=== PATIENT | female | born 1945 | race Caucasian/White ===

== ENCOUNTER 2016-08-18 13:23 | Emergency (ER) | payer OTHER ==
[~2016-08-18] VITALS: Ht 170.2 cm; Wt 72.0 kg
[~2016-08-18 13:23] MED LIST: ALBU8I INH; ALLO100T PO; DUONI NEB; LISI20 PO; PANT20 PO; REQU5TAB PO; ZITH250T PO
[2016-08-18 13:27] VITALS: BP 147/67; PULSE 102; RESP 15; TEMP 98; O2SAT 99
[2016-08-18] MEDS ORDERED: ZOLP10TA3 PO (14:40)
[2016-08-18] MEDS ORDERED: PERM5CRE11 TOPICAL (15:21)
--- NOTE | 2016-08-18 15:21 | PD ---
HPI Chief Complaint: Skin Problem Time Seen by Provider: 15:20 Travel History International Travel<30 days: No Contact w/Intl Traveler<30days: No Traveled to known affect area: No History of Present Illness HPI 70-year-old female presents to the emergency Department with complaint of a rash between her breasts and to her right bicep area times one month. 2 weeks ago she saw her primary care provider and was given betamethasone topical with no improvement in symptoms. Rash is extremely itchy. Denies fever, chills, nausea, vomiting. Has tried other topical ointments such as calamine lotion, with no relief of itching or symptoms. No one else with the rash. Denies new lotions, soaps, detergents, medications, food, environmental exposures. History of scabies approximately 6 months ago. Allergies to morphine and penicillin. No other modifying factors or associated signs and symptoms. PFSH Past Medical History Arthritis: Yes (RIGHT WRIST) Asthma: Yes Blood Disorders: No Anxiety: No Depression: No Heart Rhythm Problems: No Cancer: No Cardiac Catheterization: No Cardiovascular Problems: Yes High Cholesterol: No Chemotherapy: No Chest Pain: No Congestive Heart Failure: No COPD: Yes Coronary Artery Disease: No Diabetes: No Diminished Hearing: No Endocrine: No GERD: Yes Gout: Yes Genitourinary: No Hypertension: Yes Immune Disorder: No Musculoskeletal: No Neurologic: No Psychiatric: No Reproductive: No Respiratory: Yes (COPD) Immunizations Current: No Myocardial Infarction: No Radiation Therapy: No Sleep Apnea: No Thyroid Disease: No Tetanus Vaccination: < 5 Years Influenza Vaccination: No ?: Not Menopausal: Yes : 3 Para: 2 Miscarriage: 1 Past Surgical History Coronary Artery Bypass Graft: No Thoracic Surgery: No Other Surgery: Yes (foot surgery) Social History Alcohol Use: No Tobacco Use: No (quit in 2008) Substance Use: No Allergies-Medications (Allergen,Severity, Reaction): Coded Allergies: Morphine (Verified Allergy, Severe, N&V, 08/18/16) Penicillin (Verified Allergy, Mild, HIVES, 08/18/16) "black hairy tongue" Reported Meds & Prescriptions Reported Meds & Active Scripts Active Elimite Topical (Permethrin) 5% Cream 1 Applic TOPICAL ONCE Ventolin Hfa (Albuterol Sulfate) 8 Gm Aero 2 Puff INH Q4 PRN * SHAKE WELL BEFORE USE * Reported Zolpidem (Zolpidem Tartrate) 10 Mg Tab 10 Mg PO HS PRN Protonix (Pantoprazole Sodium) 20 Mg Tabdr 20 Mg PO HS Resp: Albuterol/Ipratropium 2.5 Mg/0.5 Mg (Albuterol/Ipratropium) 1 Amp Nebu 1 Ampule NEB Q4HR PRN Ventolin Hfa (Albuterol Sulfate) 8 Gm Aero 2 Puff INH Q6 PRN * SHAKE WELL BEFORE USE * Requip 5 mg (ROPINIROLE HYDROCHLORIDE 5 mg) 5 Mg Tab 5 Mg PO HS Allopurinol 100 Mg Tab 100 Mg PO BID Prinivil 20 mg (Lisinopril) 20 Mg Tab 20 Mg PO DAILY Review of Systems Except as stated in HPI: all other systems reviewed are Neg Physical Exam Narrative GENERAL: Well-nourished, well-developed female patient, in no acute distress; afebrile, nontoxic-appearing SKIN: Warm and dry. Generalized erythremic pimple-like rash in between breasts and to the right bicep area; areas appear excoriated. No areas with cellulitic process noted. HEAD: Atraumatic. Normocephalic. EYES: Pupils equal and round. No scleral icterus. No injection or drainage. ENT: Mucosa pink and moist. Airway patent. NECK: Trachea midline. CARDIOVASCULAR: Regular rate. RESPIRATORY: No accessory muscle use. GASTROINTESTINAL: Flat. MUSCULOSKELETAL: No obvious deformities. No clubbing. No cyanosis. No edema. NEUROLOGICAL: Awake and alert. Oriented 3. No obvious cranial nerve deficits. Motor grossly within normal limits. Normal speech. PSYCHIATRIC: Appropriate mood and affect; insight and judgment normal. Data Data Last Documented VS Vital Signs Date Time Temp Pulse Resp B/P Pulse Ox O2 Delivery O2 Flow Rate FiO2 08/18/16 13:27 98.0 102 15 147/67 99 MDM Medical Decision Making Medical Screen Exam Complete: Yes Emergency Medical Condition: Yes Medical Record Reviewed: Yes Differential Diagnosis Nonspecific skin eruption, scabies, contact dermatitis Narrative Course 70-year-old female physical exam consistent with a possible scabies rash. Patient is afebrile and nontoxic-appearing. Denies fever, chills, nausea, vomiting at home. Her rate on physical exam is approximately 90 bpm. Patient was previously treated with betamethasone topical ointment by her primary care provider with no improvement in symptoms. I will prescribe Elimite cream for possible scabies rash. Instructed patient to follow up with dermatology. Elimite prescribed for home. Patient verbalized understanding and agreement with treatment plan. Patient is medically cleared and stable for discharge. Discussed reasons to return to the emergency department. Instructed patient to follow up with primary care provider. Patient agrees with treatment plan. The patients vital signs are stable and the patient is stable for outpatient follow- up and treatment. Patient discharged home, stable and in no acute distress. Diagnosis Primary Impression: Scabies Referrals: [facility] Primary Care Physician Patient Instructions: General Instructions, Scabies (ED) Additional Instructions: Elimite cream as directed; repeat in one week as needed Soaking in cool water or apply cool, wet washcloths to irritated areas to minimize itching Apply anti-itch creams, such as calamine lotion, to relieve pain and itching as needed [id number] antihistamines as needed and as directed to relieve allergic symptoms caused by scabies Wash all pillows, linens, blankets, etc. in hot water and dry in hot dryer Bag all unwashable linens, Morrison stuffed animals, etc. in a tightly sealed garbage bag for up to 2 weeks Follow-up with [facility]eneer sawyer Follow-up with primary care provider Return to the emergency department immediately with worsening of symptoms Med/Other Pt SpecificInfo: Prescription(s) given Scripts Permethrin Topical (Elimite Topical)5% Cream1 Applic TOPICAL ONCE #1 TUBE Ref 1 Prov:Amber Martel 08/18/16 Disposition: 01 DISCHARGE HOME Condition: Stable Amber Martel Aug 18, 2016 15:21
== END 2016-08-18 15:37 | disposition home or self-care (01) ==
LOC: NEPB 13:23
DX: B86 Scabies (principal); I10 Essential (primary) hypertension; J44.9 Chronic obstructive pulmonary disease, unspecified; M10.9 Gout, unspecified
CPT/HCPCS: 99282

== ENCOUNTER 2016-10-30 22:45 | Emergency (ER) | payer OTHER ==
[~2016-10-30] VITALS: Ht 170.2 cm; Wt 74.0 kg
[~2016-10-30 22:45] MED LIST changes: +PERM5CRE11 TOPICAL; -ZITH250T PO; +ZOLP10TA3 PO
[2016-10-30 22:49] VITALS: BP 141/72; PULSE 79; RESP 24; TEMP 97.9; O2SAT 97
[2016-10-30] MEDS ORDERED: EPINEPHrine HCL (1:1000) 1 MG/ML VIAL IM ONE (23:00)
[2016-10-30] MEDS ORDERED: RESP: ALBUTEROL 2.5 MG/IPRATROPIUM 0.5 MG NEB (SCH) INH ONE (23:00)
[2016-10-30 23:05] VITALS: O2SAT 97
[2016-10-30] MEDS ORDERED: FAMOTIDINE INJ 20 MG in SODIUM CHLORIDE 0.9% INJ 98 ML IV SCH (23:15)
[2016-10-30] MEDS ORDERED: methylPREDNISolone SOD SUCC 125 MG/2 ML VIAL IV PUSH ONE (23:15)
[2016-10-30] MEDS ORDERED: SODIUM CHLORID 0.9% 500 ML INJ 500 ML IV ONE (23:15)
[2016-10-30 23:18] LABS: AUTOMATED NEUTROPHIL # 8.2 TH/MM3 (1.8-7.7); BASOPHIL # 0.1 TH/MM3 (0-0.2); BASOPHIL % 0.5 % (0.0-2.0); EOSINOPHIL # 0.6 TH/MM3 (0-0.4); EOSINOPHIL % 4.9 % (0.0-4.0); HEMATOCRIT 35.6 % (35.0-46.0); LYMPH % 16.1 % (9.0-44.0); LYMPHOCYTE # 1.9 TH/MM3 (1.0-4.8); MEAN CELL VOLUME 88.9 FL (80.0-100.0); MEAN CORPUSCULAR HEMOGLOBIN 30.4 PG (27.0-34.0); MEAN CORPUSCULAR HGB CONC 34.2 % (32.0-36.0); MONO % 9.2 % (0.0-8.0); NEUT % 69.3 % (16.0-70.0); PLATELET COUNT 249 TH/MM3 (150-450); RED CELL DISTRIBUTION WIDTH 13.5 % (11.6-17.2); WHITE BLOOD COUNT 11.8 TH/MM3 (4.0-11.0)
[2016-10-30 23:24] LABS: HEMO FLAGS AUTO DIFF
[2016-10-30] MEDS ORDERED: diphenhydrAMINE HCL 50 MG/ML VIAL IV PUSH ONE (23:30)
[2016-10-30 23:38] LABS: CREATINE KINASE 110 U/L (26-192)
[2016-10-30 23:41] VITALS: O2SAT 100
[2016-10-30 23:42] LABS: ANION GAP 8 MEQ/L (5-15); BICARBONATE 24.2 MEQ/L (21.0-32.0); CHLORIDE 108 MEQ/L (98-107); GLOMERULAR FILTRATION RATE 59 ML/MIN (>89); POTASSIUM 4.2 MEQ/L (3.5-5.1); SODIUM (NA) 140 MEQ/L (136-145)
[2016-10-30 23:50] LABS: CKMB 3.2 NG/ML (0.5-3.6)
[2016-10-30 23:51] LABS: BLOOD UREA NITROGEN 16 MG/DL (7-18)
--- NOTE | 2016-10-30 23:56 | PD ---
HPI Chief Complaint: Allergic/Adverse Reaction Time Seen by Provider: 22:50 Travel History International Travel<30 days: No Contact w/Intl Traveler<30days: No Traveled to known affect area: No History of Present Illness HPI The patient is a 71 year old female who presents to the [facility] emergency department with a history of developing a sensation of extremely dry mouth and throat that began approximate 45 minutes prior to arrival. The patient reports that she tried drinking water and wetting her mouth as well as doing an albuterol nebulizer treatment, however nothing would help except sucking on a cough drop. She became concerned that she was experiencing an allergic reaction as she was having difficulty swallowing, therefore she came to the emergency department for evaluation and treatment. The patient reports that she ate a shrimp cocktail at 8:30 PM. She reports that she's had shellfish many times in the past without any reaction. The patient additionally reports that she is in a trial and over the last week has been using a new inhaler. She last administered the new inhaler at 8:15 PM. The patient denies having any rash or itching. She denies having any chest pain. She denies having any abdominal pain, nausea, vomiting, or diarrhea. Review of systems, the patient denies any recent fevers, worsening cough (she has a chronic cough related to COPD), worsening congestion, neck pain, urinary symptoms, or neurologic symptoms. [facility] Past Medical History Narrative Medical The patient's past medical history is significant for COPD, arthritis, gout, hypertension, and acid reflux. The patient reports that she quit smoking 4 years ago. Arthritis: Yes (RIGHT WRIST) Asthma: Yes Blood Disorders: No Anxiety: No Depression: No Heart Rhythm Problems: No Cancer: No Cardiac Catheterization: No Cardiovascular Problems: Yes High Cholesterol: No Chemotherapy: No Chest Pain: No Congestive Heart Failure: No COPD: Yes Coronary Artery Disease: No Diabetes: No Diminished Hearing: No Endocrine: No GERD: Yes Gout: Yes Genitourinary: No Hypertension: Yes Immune Disorder: No Musculoskeletal: No Neurologic: No Psychiatric: No Reproductive: No Respiratory: Yes (COPD) Immunizations Current: No Myocardial Infarction: No Radiation Therapy: No Sleep Apnea: No Thyroid Disease: No ?: Not Menopausal: Yes : 3 Para: 2 Miscarriage: 1 Past Surgical History Narrative Surgical The patient's past surgical history is significant for a foot surgery. Coronary Artery Bypass Graft: No Thoracic Surgery: No Other Surgery: Yes (foot surgery) Social History Alcohol Use: No Tobacco Use: No (quit in 2008) Substance Use: No Allergies-Medications (Allergen,Severity, Reaction): Coded Allergies: Morphine (Verified Allergy, Severe, N&V, 08/18/16) Penicillin (Verified Allergy, Mild, HIVES, 08/18/16) "black hairy tongue" Reported Meds & Prescriptions Reported Meds & Active Scripts Active Elimite Topical (Permethrin) 5% Cream 1 Applic TOPICAL ONCE Ventolin Hfa (Albuterol Sulfate) 8 Gm Aero 2 Puff INH Q4 PRN * SHAKE WELL BEFORE USE * Reported Zolpidem (Zolpidem Tartrate) 10 Mg Tab 10 Mg PO HS PRN Protonix (Pantoprazole Sodium) 20 Mg Tabdr 20 Mg PO HS Resp: Albuterol/Ipratropium 2.5 Mg/0.5 Mg (Albuterol/Ipratropium) 1 Amp Nebu 1 Ampule NEB Q4HR PRN Ventolin Hfa (Albuterol Sulfate) 8 Gm Aero 2 Puff INH Q6 PRN * SHAKE WELL BEFORE USE * Requip 5 mg (ROPINIROLE HYDROCHLORIDE 5 mg) 5 Mg Tab 5 Mg PO HS Allopurinol 100 Mg Tab 100 Mg PO BID Prinivil 20 mg (Lisinopril) 20 Mg Tab 20 Mg PO DAILY Review of Systems Except as stated in HPI: all other systems reviewed are Neg General / Constitutional: No: Fever Eyes: No: Visual changes HENT: Positive: Sore Throat, Other (dry mouth, dry throat, difficulty swallowing), No: Headaches Cardiovascular: Positive: Dyspnea on exertion, No: Chest Pain or Discomfort Respiratory: Positive: Cough (chronic cough), Shortness of Breath Gastrointestinal: No: Abdominal Pain Genitourinary: No: Dysuria Musculoskeletal: No: Pain Skin: No Rash Neurologic: No: Weakness Psychiatric: No: Depression Endocrine: No: Polydipsia Hematologic/Lymphatic: No: Easy Bruising Physical Exam Narrative General: The patient is a well-developed well-nourished female, anxious appearing on arrival. Otherwise in no acute distress. Head and Neck exam: Head is normocephalic atraumatic. Eyes: EOMI, pupils are equal round and reactive to light. Nose: Midline septum with pink mucous membranes Mouth: Dentition unremarkable. Moist mucus membranes. Posterior oropharynx is mildly erythematous and dry appearing with slight swelling of the uvula. No tonsillar hypertrophy. Uvula midline. Airway patent. Neck: No palpable lymphadenopathy. No nuchal rigidity. No thyromegaly. Cardiovascular: Regular rate and rhythm without murmurs, gallops, or rubs. Lungs: Soft expiratory wheezes are audible. No rhonchi, no crackles. No accessory muscle use. No tripoding. No paroxysmal abdominal breathing. Abdomen: Soft, without tenderness to palpation in all 4 quadrants of the abdomen. No guarding, rebound, or rigidity. Normal bowel sounds are audible. No tenderness on palpation of McBurney's point. Negative Louis sign. Extremities: No clubbing, cyanosis, or edema. 2+ pulses in all 4 extremities. No calf tenderness on palpation. Back: No costovertebral angle tenderness to palpation. Neurologic Exam: Grossly nonfocal. Skin Exam: No rash noted. Intact skin that is warm and dry. Data Data Last Documented VS Vital Signs Date Time Temp Pulse Resp B/P Pulse Ox O2 Delivery O2 Flow Rate FiO2 10/31/16 01:18 86 18 174/80 98 Nasal Cannula 2 10/30/16 22:49 97.9 Orders Complete Blood Count With Diff (10/30/16:) Basic Metabolic Panel (Bmp) (10/30/16 23:00) Creatine Kinase (Cpk) (10/30/16 23:00) Ckmb (Isoenzyme) Profile (10/30/16:) Troponin I (10/30/16:00) Chest, Single Ap (10/30/16:) Iv Access Insert/Monitor (10/30/16:) Ecg Monitoring (10/30/16:00) Oximetry (10/30/16:00) Albuterol-Ipratropium Neb (Duoneb Neb) (10/30/16:) Epinephrine (1:1000) Inj (Adrenalin (1:1 (10/30/16 23:00) Methylprednisolone So Succ Inj (Solumedr (10/30/16 23:15) Famotidine Inj (Pepcid Inj) (10/30/16 23:15) Sodium Chlorid 0.9% 500 Ml Inj (Ns 500 M (10/30/16 23:15) Diphenhydramine Inj (Benadryl Inj) (10/30/16 23:30) CKMB (10/30/16 23:00) CKMB% (10/30/16 23:00) Labs Laboratory Tests Test 10/30/16 23:00 Sodium Level 140 MEQ/L Potassium Level 4.2 MEQ/L Chloride Level 108 MEQ/L Carbon Dioxide Level 24.2 MEQ/L Anion Gap 8 MEQ/L Blood Urea Nitrogen 16 MG/DL Creatinine 0.94 MG/DL Estimat Glomerular Filtration 59 ML/MIN Rate Random Glucose 137 MG/DL Calcium Level 8.7 MG/DL Total Creatine Kinase 110 U/L Creatine Kinase MB 3.2 NG/ML Troponin I LESS THAN 0.02 NG/ML White Blood Count 11.8 TH/MM3 Red Blood Count 4.00 MIL/MM3 Hemoglobin 12.2 GM/DL Hematocrit 35.6 % Mean Corpuscular Volume 88.9 FL Mean Corpuscular Hemoglobin 30.4 PG Mean Corpuscular Hemoglobin 34.2 % Concent Red Cell Distribution Width 13.5 % Platelet Count 249 TH/MM3 Mean Platelet Volume 9.2 FL Neutrophils (%) (Auto) 69.3 % Lymphocytes (%) (Auto) 16.1 % Monocytes (%) (Auto) 9.2 % Eosinophils (%) (Auto) 4.9 % Basophils (%) (Auto) 0.5 % Neutrophils # (Auto) 8.2 TH/MM3 Lymphocytes # (Auto) 1.9 TH/MM3 Monocytes # (Auto) 1.1 TH/MM3 Eosinophils # (Auto) 0.6 TH/MM3 Basophils # (Auto) 0.1 TH/MM3 CBC Comment AUTO DIFF Differential Total Cells 100 Counted Neutrophils % (Manual) 80 % Band Neutrophils % 1 % Lymphocytes % 10 % Monocytes % 5 % Eosinophils % 4 % Neutrophils # (Manual) 9.6 TH/MM3 Differential Comment FINAL DIFF MANUAL Platelet Estimate NORMAL Platelet Morphology Comment NORMAL Red Cell Morphology Comment NORMAL MDM Medical Decision Making Medical Screen Exam Complete: Yes Emergency Medical Condition: Yes Medical Record Reviewed: Yes Interpretation(s) Last Impressions Chest X-Ray 10/30/16 2300 Signed Impressions: Service Date/Time: Sunday, October 30, 2016 23:27 - CONCLUSION: 1. Hyperinflation consistent with known underlying emphysema. 2. Hazy opacity remains at both lung bases which could indicate scarring. José Bowen MD Differential Diagnosis Allergic reaction, versus anaphylaxis, versus uvulitis, versus medication side effect Narrative Course During the course of the patients emergency department visit, the patients history, examination, and differential diagnosis were reviewed with the patient. The patient had IV access obtained and blood work sent for analysis. The patient was placed on a quality assurance monitor with oximetry and blood pressure monitoring. The patient had an EKG done on arrival. The patient's EKG showed a normal sinus rhythm without any acute changes. The patient was initially provided Benadryl 50 mg IV, a DuoNeb 1, but her 125 mg IV, epinephrine 0.3 IM, famotidine 40 mg IV. The patient on reexamination appears to be improved. The patient is drinking liquids without any difficulty. The patients laboratory studies were reviewed and remarkable for a white count of 11.8, hemoglobin 12.2, platelets 249 with 9.2 monocytes, eosinophils 4.9, BNP is remarkable for chloride of 108, glucose 137, CPK 110, troponin I less than 0.02. Radiology studies were reviewed and remarkable for a chest x-ray that shows hyperinflation consistent with known underlying emphysema, hazy opacity remains at both lung bases which could indicate scarring. The patient's results were discussed with her. Her questions were answered. Given the patient being on a new study inhaler, the patient was instructed to call the doctor managing the study in the morning to discuss further whether she should continue on the medicine. She was instructed to avoid taking the medicine until she discusses that further with them. She was instructed to avoid shellfish. The patient was instructed to hold her Protonix while she is taking famotidine. The patient was given a prescription for a Medrol Dosepak taper, famotidine, Benadryl, and an EpiPen at discharge. The patient on repeat examination continues to be resting comfortably. No signs of recurrence of her symptoms. The patient is resting comfortably and feels better, is alert and in no distress. The patients results and examination findings were discussed with the patient. The repeat examination is unremarkable and benign. The history, exam, diagnostic testing, and current condition do not suggest any significant pathology to warrant further testing, continued ED treatment, admission, or surgical evaluation at this point. The vital signs have been stable. The patient does not have uncontrollable pain, intractable vomiting, or other significant symptoms. The patient's condition is stable and appropriate for discharge. The patient will pursue further outpatient evaluation with a primary care physician or other designated or consulting physician as indicated in the discharge instructions. The patient expressed understanding and was agreeable with this plan. Diagnosis Primary Impression: Allergic reaction Qualified Code: T78.40XA - Allergic reaction, initial encounter Referrals: Primary Care Physician 2 days Patient Instructions: General Allergic Reaction (ED), General Instructions Additional Instructions: The patient's results were discussed with her. Her questions were answered. Given the patient being on a new study inhaler, the patient was instructed to call the doctor managing the study in the morning to discuss further whether she should continue on the medicine. She was instructed to avoid taking the medicine until she discusses that further with them. She was instructed to avoid shellfish. The patient was instructed to hold her Protonix while she is taking famotidine. The patient was given a prescription for a Medrol Dosepak taper, famotidine, Benadryl, and an EpiPen at discharge. Med/Other Pt SpecificInfo: Prescription(s) given Scripts Epinephrine Inj 0.15 Mg/0.3 Ml Inj0.3 Mg IM DIRECTED PRN (ALLERGIC REACTION) #1 INJECTION Ref 0 Prov:Angie Houser MD 10/31/16 Diphenhydramine (Benadryl Allergy)25 Mg Tab25 Mg PO Q6H #12 TAB Ref 0 Prov:Angie Houser MD 10/31/16 Famotidine 20 Mg Tab20 Mg PO BID #14 TAB Ref 0 Prov:Angie Houser MD 10/31/16 Methylprednisolone Dosepak (Medrol Dosepak)4 Mg Dspk4 Mg PO DIRECTED #1 DSPK Ref 0 Per Pharmacist direction Prov:Angie Houser MD 10/31/16 Disposition: 01 DISCHARGE HOME Condition: Stable Angie Houser MD October 30, 2016 23:55
--- NOTE | 2016-10-31 00:09 | RADRPT ---
EXAM DATE/TIME: 10/30/2016 23:27 [facility] COMPARISON: CHEST SINGLE AP, September 26, 2015, 6:03. INDICATIONS : Shortness of breath. Emphysema seen on prior chest CT MEDICAL HISTORY : Chronic obstructive pulmonary disease. SURGICAL HISTORY : None. ENCOUNTER: Initial ACUITY: 1 day PAIN SCORE: 0/10 LOCATION: Bilateral chest FINDINGS: 2 AP erect views of the chest were obtained and again demonstrate hyperinflation with hazy opacity ag ain noted at the lung bases without change. The heart size remains at the upper limits of normal with no perihilar edema. Multiple overlying electrocardiogram leads are present. The bony thorax is intac t. CONCLUSION: 1. Hyperinflation consistent with known underlying emphysema. 2. Hazy opacity remains at both lung bases which could indicate scarring. José Bowen MD on October 31, 2016 at 0:05 Board Certified Radiologist. This report was verified electronically.
[2016-10-31 00:44] LABS: BANDS 1 % (0-6); EOSINOPHILS 4 % (0-4); NEUTROPHIL # MANUAL DIFF 9.6 TH/MM3 (1.8-7.7); POLYS (SEG NEUTROPHILS) 80 % (16-70); WBC DIFF SAMPLE 100
[2016-10-31 00:45] LABS: PLATELET ESTIMATE SMEAR NORMAL (NORMAL); PLATELET MORPHOLOGY NORMAL (NORMAL); SCAN/DIFF FINAL DIFF MANUAL
[2016-10-31 00:56] VITALS: PULSE 84; RESP 18; O2SAT 100
[2016-10-31 01:18] VITALS: BP 174/80; PULSE 86; RESP 18; O2SAT 98
[2016-10-31] MEDS ORDERED: BENA25TA3 PO (01:38)
[2016-10-31] MEDS ORDERED: MEDR4PAK PO (01:38)
[2016-10-31] MEDS ORDERED: FAMO20TA2 PO (01:38)
[2016-10-31] MEDS ORDERED: EPIN1INJ24 IM (01:38)
== END 2016-10-31 02:20 | disposition home or self-care (01) ==
LOC: NEPE 22:45
DX: T78.40XA Allergy, unspecified, initial encounter (principal); J45.909 Unspecified asthma, uncomplicated; I10 Essential (primary) hypertension; K21.9 Gastro-esophageal reflux disease without esophagitis; J44.9 Chronic obstructive pulmonary disease, unspecified; Z87.891 Personal history of nicotine dependence
CPT/HCPCS: 71010; 80048; 82550; 82552; 84484; 85007; 85027; 94664; 96365; 96372; 96375; 99283; J0171; J1200; J2930; J7040

== ENCOUNTER 2016-12-30 15:30 | Inpatient (IN) | payer OTHER, MEDICARE ==
[2016-12-30] VITALS (8 sets, daily range): BP systolic 109–150; BP diastolic 61–76; PULSE 72–133; RESP 16–28; TEMP 97.8–101.3; O2SAT 90–100
[~2016-12-30] VITALS: Ht 170.2 cm; Wt 76.5 kg
[~2016-12-30 15:30] MED LIST changes: +BENA25TA3 PO; +EPIN1INJ24 IM; +FAMO20TA2 PO; +MEDR4PAK PO
[2016-12-30] MEDS ORDERED: methylPREDNISolone SOD SUCC 125 MG/2 ML VIAL IVP ONE (16:00)
[2016-12-30] MEDS ORDERED: SODIUM CHLORIDE 0.9% FLUSH 10 ML FLUSH IVF PRN (16:00)
[2016-12-30] MEDS ORDERED: SODIUM CHLOR 0.9% 1000 ML INJ 1,000 ML IV ONE ×2 (16:00→17:15)
--- NOTE | 2016-12-30 16:03 | PD ---
HPI Chief Complaint: Chest Pain Time Seen by Provider: 16:03 Travel History International Travel<30 days: No Contact w/Intl Traveler<30days: No Traveled to known affect area: No History of Present Illness HPI 71-year-old female presents to the emergency department for evaluation of right- sided chest pain, coughing, fever, chills, shortness of breath that started last night. She states that she was drenched in sweat last night. Patient reports history of COPD, hypertension, gout, GERD. Patient states that she was discharged from [facility] on December 20, 2016 for COPD exacerbation. She took a week's worth of antibiotics, but is not currently on them. She cannot remember the name of the antibiotic she was on. She states she was not feverish at that time was not diagnosed with pneumonia. The patient denies any abdominal pain, nausea, vomiting, diarrhea. PFSH Past Medical History Arthritis: Yes (RIGHT WRIST) Asthma: Yes Blood Disorders: No Anxiety: No Depression: No Heart Rhythm Problems: No Cancer: No Cardiac Catheterization: No Cardiovascular Problems: Yes High Cholesterol: No Chemotherapy: No Chest Pain: No Congestive Heart Failure: No COPD: Yes Coronary Artery Disease: No Diabetes: No Diminished Hearing: No Endocrine: No GERD: Yes Gout: Yes Genitourinary: No Hypertension: Yes Immune Disorder: No Musculoskeletal: No Neurologic: No Psychiatric: No Reproductive: No Respiratory: Yes Immunizations Current: No Myocardial Infarction: No Radiation Therapy: No Sleep Apnea: No Thyroid Disease: No Menopausal: Yes : 3 Para: 2 Miscarriage: 1 Past Surgical History Coronary Artery Bypass Graft: No Thoracic Surgery: No Other Surgery: Yes (foot surgery) Social History Alcohol Use: No Tobacco Use: No (quit in 2008) Substance Use: No Allergies-Medications (Allergen,Severity, Reaction): Coded Allergies: Morphine (Verified Allergy, Severe, N&V, 12/30/16) Penicillin (Verified Allergy, Mild, HIVES, 12/30/16) "black hairy tongue" Shellfish (Verified Adverse Reaction, Intermediate, swelling, 12/30/16) Reported Meds & Prescriptions Reported Meds & Active Scripts Active Epinephrine Inj (Epinephrine) 0.15 Mg/0.3 Ml Inj 0.3 Mg IM DIRECTED PRN Famotidine 20 Mg Tab 20 Mg PO BID Reported Allopurinol 100 Mg Tab 100 Mg PO BID Duoneb (Ipratropium-Albuterol Neb) 0.5-2.5 Mg/3 Ml Neb 1 Nebule INH Q4HR NEB PRN Ventolin Hfa 18 GM Inh (Albuterol Sulfate) 90 Mcg/Act Aer 2 Puff INH Q4-6H PRN Zolpidem (Zolpidem Tartrate) 10 Mg Tab 10 Mg PO HS PRN Review of Systems Except as stated in HPI: all other systems reviewed are Neg Physical Exam Narrative GENERAL: Well-nourished, well-developed female patient, temp 101.3 in the exam room. SKIN: Focused skin assessment warm/dry. HEAD: Normocephalic. Atraumatic. EYES: No scleral icterus. No injection or drainage. NECK: Supple, trachea midline. No JVD or lymphadenopathy. CARDIOVASCULAR: Regular rate and rhythm without murmurs, gallops, or rubs. RESPIRATORY: Breath sounds equal bilaterally. No accessory muscle use. Lungs sounds diminished with expiratory wheezes noted throughout. GASTROINTESTINAL: Abdomen soft, non-tender, nondistended. MUSCULOSKELETAL: No cyanosis, or edema. BACK: Nontender without obvious deformity. No CVA tenderness. Data Data Last Documented VS Vital Signs Date Time Temp Pulse Resp B/P Pulse Ox O2 Delivery O2 Flow Rate FiO2 12/30/16 17:20 97.8 98 20 115/68 100 Nasal Cannula 2 Orders Electrocardiogram (12/30/16 ) Complete Blood Count With Diff (12/30/16 15:55) Basic Metabolic Panel (Bmp) (12/30/16 15:55) B-Type Natriuretic Peptide (12/30/16 15:55) Act Partial Throm Time (Ptt) (12/30/16 15:55) Prothrombin Time / Inr (Pt) (12/30/16 15:55) Magnesium (Mg) (12/30/16 15:55) Ckmb (Isoenzyme) Profile (12/30/16 15:55) Troponin I (12/30/16 15:55) Blood Culture (12/30/16 15:55) Iv Access Insert/Monitor (12/30/16 15:55) Electrocardiogram (12/30/16 15:55) Ecg Monitoring (12/30/16 15:55) Oximetry (12/30/16 15:55) Oxygen Administration (12/30/16 15:55) Chest, Single Ap (12/30/16 15:55) Sodium Chloride 0.9% Flush (Ns Flush) (12/30/16 16:00) Methylprednisolone So Succ Inj (Solumedr (12/30/16 16:00) Albuterol-Ipratropium Neb (Duoneb Neb) (12/30/16 16:00) Lactic Acid Sepsis Protocol (12/30/16 15:55) Sodium Chlor 0.9% 1000 Ml Inj (Ns 1000 M (12/30/16 16:00) Acetaminophen (Tylenol) (12/30/16 16:15) Adenosine Inj (Adenocard Inj) (12/30/16 16:38) Diltiazem Inj (Cardizem Inj) (12/30/16 16:42) Diltiazem Inj (Cardizem Inj) (12/30/16 17:00) Diltiazem Inj (Cardizem Inj) (12/30/16 17:00) Adenosine Inj (Adenocard Inj) (12/30/16 17:00) Sodium Chlor 0.9% 1000 Ml Inj (Ns 1000 M (12/30/16 17:15) Cefepime Inj (Maxipime Inj) (12/30/16 17:15) Vancomycin Inj (Vancomycin Inj) (12/30/16 17:15) Diltiazem (Cardizem) (12/30/16 17:15) Electrocardiogram (12/30/16 ) Aspirin Chew (Aspirin Chew) (12/30/16 17:45) Labs Laboratory Tests Test 12/30/16 16:11 White Blood Count 10.6 TH/MM3 Red Blood Count 4.01 MIL/MM3 Hemoglobin 12.4 GM/DL Hematocrit 35.9 % Mean Corpuscular Volume 89.5 FL Mean Corpuscular Hemoglobin 31.0 PG Mean Corpuscular Hemoglobin 34.6 % Concent Red Cell Distribution Width 14.6 % Platelet Count 219 TH/MM3 Mean Platelet Volume 8.4 FL Neutrophils (%) (Auto) 91.3 % Lymphocytes (%) (Auto) 3.1 % Monocytes (%) (Auto) 4.8 % Eosinophils (%) (Auto) 0.6 % Basophils (%) (Auto) 0.2 % Neutrophils # (Auto) 9.7 TH/MM3 Lymphocytes # (Auto) 0.3 TH/MM3 Monocytes # (Auto) 0.5 TH/MM3 Eosinophils # (Auto) 0.1 TH/MM3 Basophils # (Auto) 0.0 TH/MM3 CBC Comment DIFF FINAL Differential Comment Prothrombin Time 10.7 SEC Prothromb Time International 1.0 RATIO Ratio Activated Partial 28.5 SEC Thromboplast Time Sodium Level 135 MEQ/L Potassium Level 4.3 MEQ/L Chloride Level 99 MEQ/L Carbon Dioxide Level 23.4 MEQ/L Anion Gap 13 MEQ/L Blood Urea Nitrogen 25 MG/DL Creatinine 1.30 MG/DL Estimat Glomerular Filtration 41 ML/MIN Rate Random Glucose 174 MG/DL Lactic Acid Level 2.5 mmol/L Calcium Level 8.9 MG/DL Magnesium Level 1.5 MG/DL Total Creatine Kinase 39 U/L Troponin I LESS THAN 0.02 NG/ML B-Type Natriuretic Peptide 35 PG/ML MDM Medical Decision Making Medical Screen Exam Complete: Yes Emergency Medical Condition: Yes Medical Record Reviewed: Yes Interpretation(s) Last Impressions Chest X-Ray 12/30/16 1555 Signed Impressions: Service Date/Time: Friday, December 30, 2016 16:17 - CONCLUSION: Slight bibasilar linear atelectasis. Alana Oliveira MD Differential Diagnosis Pneumonia versus COPD exacerbation versus pneumothorax versus PE versus ACS Narrative Course 71-year-old female presents to the emergency department for evaluation of fever , chills, right-sided chest pain, shortness of breath since last night. EKG, CBC, BMP, BNP, magnesium, CK, troponin, lactic acid, PTT, PT/INR, blood cultures 2 are ordered and pending. Chest x-ray is ordered and pending. Patient is given normal saline 1 L IV bolus, Solu-Medrol 125 mg IV, DuoNeb 3. EKG shows sinus tachycardia, heart rate 101, no acute ST changes. CBC shows a CBC of 10.6, neutrophilia 91.3. BMP shows elevated BUN and creatinine of 25/ 1.30, glucose 174. BNP is 35. Magnesium is 1.5. CK is 39. Troponin is less than 0.02. Lactic acid is 2.5. Coags are unremarkable. Chest x-ray shows bibasilar atelectasis. The patient receiving DuoNeb treatments, heart rate went up to 160-170 beats per minute. Vagal maneuvers were attempted without success. Patient was given adenosine 6 mg IV. Underlying rhythm appeared to be atrial fib or atrial flutter. Patient was then given Cardizem 0.25 mg/kg (18 mg) IV. Rhythm is definitely E Cho fibrillation with RVR. Patient is given 2nd liter IV bolus. Before patient was started on Cardizem drip, patient went back into sinus rhythm , heart rate 99, no acute ST changes. Patient was given Cardizem 60 mg by mouth. Patient is started on cefepime 2 gm IV, Vancomycin [address] Moon accepted admission. [facility] is paged for admission. Sepsis Criteria SIRS Criteria (2 or more): Temp > 100.9 or < 96.8, Heart rate over 90 Sepsis Criteria (SIRS+source): Infect source susp/known Severe Sepsis (+one): Lactate >2 Diagnosis Primary Impression: PNA (pneumonia) Qualified Code: J18.9 - Pneumonia due to infectious organism, unspecified laterality, unspecified part of lung Additional Impressions: Sepsis Qualified Code: A41.9 - Sepsis, due to unspecified organism AF (paroxysmal atrial fibrillation) Chest pain Qualified Code: R07.9 - Chest pain, unspecified type Admitting Information Admitting Physician Requests: Admit Gris Means Dec 30, 2016 16:03
[2016-12-30] MEDS: RESP: ALBUTEROL 2.5 MG/IPRATROPIUM 0.5 MG NEB (SCH) INH ×2 (16:08→20:33)
[2016-12-30] MEDS ORDERED: ACETAMINOPHEN 325 MG TAB PO ONE (16:15)
[2016-12-30] MEDS ORDERED: IPRASOL INH (16:18)
[2016-12-30] MEDS ORDERED: VENTAER INH (16:18)
[2016-12-30] MEDS ORDERED: ALLO100T PO (16:18)
[2016-12-30] MEDS: ADENOSINE IV SOLN 3 MG/ML 2 ML VIAL ONE ×2 (16:38→16:49)
[2016-12-30] MEDS: DILTIAZEM HCL 25 MG/5 ML VIAL ONE ×2 (16:42→16:49)
[2016-12-30 16:43] LABS: AUTOMATED NEUTROPHIL # 9.7 TH/MM3 (1.8-7.7); BASOPHIL % 0.2 % (0.0-2.0); EOSINOPHIL # 0.1 TH/MM3 (0-0.4); EOSINOPHIL % 0.6 % (0.0-4.0); HEMATOCRIT 35.9 % (35.0-46.0); HEMO FLAGS DIFF FINAL; LYMPH % 3.1 % (9.0-44.0); LYMPHOCYTE # 0.3 TH/MM3 (1.0-4.8); MEAN CELL VOLUME 89.5 FL (80.0-100.0); MEAN CORPUSCULAR HGB CONC 34.6 % (32.0-36.0); MONO % 4.8 % (0.0-8.0); NEUT % 91.3 % (16.0-70.0); PLATELET COUNT 219 TH/MM3 (150-450); RED BLOOD COUNT 4.01 MIL/MM3 (4.00-5.30); RED CELL DISTRIBUTION WIDTH 14.6 % (11.6-17.2); WHITE BLOOD COUNT 10.6 TH/MM3 (4.0-11.0)
[2016-12-30 16:57] LABS: ANION GAP 13 MEQ/L (5-15); APTT (PATIENT) 28.5 SEC (24.3-30.1); BICARBONATE 23.4 MEQ/L (21.0-32.0); BLOOD UREA NITROGEN 25 MG/DL (7-18); CHLORIDE 99 MEQ/L (98-107); GLOMERULAR FILTRATION RATE 41 ML/MIN (>89); MAGNESIUM 1.5 MG/DL (1.5-2.5); POTASSIUM 4.3 MEQ/L (3.5-5.1); PROTHROMBIN TIME - PATIENT 10.7 SEC (9.8-11.6); SODIUM (NA) 135 MEQ/L (136-145)
[2016-12-30] MEDS ORDERED: ADENOSINE IV SOLN 3 MG/ML 2 ML VIAL IV PUSH ONE (17:00)
[2016-12-30] MEDS ORDERED: DILTIAZEM HCL 25 MG/5 ML VIAL IV PUSH ONE (17:00)
[2016-12-30] MEDS ORDERED: DILTIAZEM INJ 125 MG in SODIUM CHLORIDE 0.9% INJ 100 ML IV SCH (17:00)
[2016-12-30 17:03] LABS: CREATINE KINASE 39 U/L (26-192)
[2016-12-30] MEDS ORDERED: VANCOMYCIN INJ 1,000 MG in SODIUM CHLOR 0.9% 250 ML INJ 250 ML IV ONE ×2 (17:15→18:45)
[2016-12-30] MEDS ORDERED: DILTIAZEM HCL 60 MG TAB PO ONE (17:15)
[2016-12-30] MEDS ORDERED: CEFEPIME INJ 2,000 MG in SODIUM CHLORIDE 0.9% INJ 100 ML IV ONE (17:15)
--- NOTE | 2016-12-30 17:15 | RADRPT ---
EXAM DATE/TIME: 12/30/2016 16:17 [place] COMPARISON: CHEST SINGLE AP, October 30, 2016, 23:27. INDICATIONS : Short of Breath MEDICAL HISTORY : Chronic obstructive pulmonary disease. SURGICAL HISTORY : None. ENCOUNTER: Initial ACUITY: 1 day PAIN SCORE: 0/10 LOCATION: Bilateral chest FINDINGS: Slight bibasilar linear atelectasis is seen. Focal consolidation is not seen. Heart and mediastinum a re unremarkable for technique. CONCLUSION: Slight bibasilar linear atelectasis. Alana Oliveira MD on December 30, 2016 at 17:13 Board Certified Radiologist. This report was verified electronically.
[2016-12-30] MEDS ORDERED: ASPIRIN 81 MG CHEW TAB CHEW ONE (17:45)
[2016-12-30] MEDS ORDERED: ASPIRIN 81 MG CHEW TAB PO ONE (17:45)
--- NOTE | 2016-12-30 17:48 | PD ---
Data Data Last Documented VS Vital Signs Date Time Temp Pulse Resp B/P Pulse Ox O2 Delivery O2 Flow Rate FiO2 12/30/16 17:20 97.8 98 20 115/68 100 Nasal Cannula 2 Orders Electrocardiogram (12/30/16 ) Complete Blood Count With Diff (12/30/16 15:55) Basic Metabolic Panel (Bmp) (12/30/16 15:55) B-Type Natriuretic Peptide (12/30/16 15:55) Act Partial Throm Time (Ptt) (12/30/16 15:55) Prothrombin Time / Inr (Pt) (12/30/16 15:55) Magnesium (Mg) (12/30/16 15:55) Ckmb (Isoenzyme) Profile (12/30/16 15:55) Troponin I (12/30/16 15:55) Blood Culture (12/30/16 15:55) Iv Access Insert/Monitor (12/30/16 15:55) Electrocardiogram (12/30/16 15:55) Ecg Monitoring (12/30/16 15:55) Oximetry (12/30/16 15:55) Oxygen Administration (12/30/16 15:55) Chest, Single Ap (12/30/16 15:55) Sodium Chloride 0.9% Flush (Ns Flush) (12/30/16 16:00) Methylprednisolone So Succ Inj (Solumedr (12/30/16 16:00) Albuterol-Ipratropium Neb (Duoneb Neb) (12/30/16 16:00) Lactic Acid Sepsis Protocol (12/30/16 15:55) Sodium Chlor 0.9% 1000 Ml Inj (Ns 1000 M (12/30/16 16:00) Acetaminophen (Tylenol) (12/30/16 16:15) Adenosine Inj (Adenocard Inj) (12/30/16 16:38) Diltiazem Inj (Cardizem Inj) (12/30/16 16:42) Diltiazem Inj (Cardizem Inj) (12/30/16 17:00) Diltiazem Inj (Cardizem Inj) (12/30/16 17:00) Adenosine Inj (Adenocard Inj) (12/30/16 17:00) Sodium Chlor 0.9% 1000 Ml Inj (Ns 1000 M (12/30/16 17:15) Cefepime Inj (Maxipime Inj) (12/30/16 17:15) Vancomycin Inj (Vancomycin Inj) (12/30/16 17:15) Diltiazem (Cardizem) (12/30/16 17:15) Electrocardiogram (12/30/16 ) Aspirin Chew (Aspirin Chew) (12/30/16 17:45) Labs Laboratory Tests Test 12/30/16 16:11 White Blood Count 10.6 TH/MM3 Red Blood Count 4.01 MIL/MM3 Hemoglobin 12.4 GM/DL Hematocrit 35.9 % Mean Corpuscular Volume 89.5 FL Mean Corpuscular Hemoglobin 31.0 PG Mean Corpuscular Hemoglobin 34.6 % Concent Red Cell Distribution Width 14.6 % Platelet Count 219 TH/MM3 Mean Platelet Volume 8.4 FL Neutrophils (%) (Auto) 91.3 % Lymphocytes (%) (Auto) 3.1 % Monocytes (%) (Auto) 4.8 % Eosinophils (%) (Auto) 0.6 % Basophils (%) (Auto) 0.2 % Neutrophils # (Auto) 9.7 TH/MM3 Lymphocytes # (Auto) 0.3 TH/MM3 Monocytes # (Auto) 0.5 TH/MM3 Eosinophils # (Auto) 0.1 TH/MM3 Basophils # (Auto) 0.0 TH/MM3 CBC Comment DIFF FINAL Differential Comment Prothrombin Time 10.7 SEC Prothromb Time International 1.0 RATIO Ratio Activated Partial 28.5 SEC Thromboplast Time Sodium Level 135 MEQ/L Potassium Level 4.3 MEQ/L Chloride Level 99 MEQ/L Carbon Dioxide Level 23.4 MEQ/L Anion Gap 13 MEQ/L Blood Urea Nitrogen 25 MG/DL Creatinine 1.30 MG/DL Estimat Glomerular Filtration 41 ML/MIN Rate Random Glucose 174 MG/DL Lactic Acid Level 2.5 mmol/L Calcium Level 8.9 MG/DL Magnesium Level 1.5 MG/DL Total Creatine Kinase 39 U/L Troponin I LESS THAN 0.02 NG/ML B-Type Natriuretic Peptide 35 PG/ML [facility] Medical Record Reviewed: Yes Supervised Visit with REN: Yes Interpretation(s) Vital Signs Date Time Temp Pulse Resp B/P Pulse Ox O2 Delivery O2 Flow Rate FiO2 12/30/16 17:20 97.8 98 20 115/68 100 Nasal Cannula 2 12/30/16 16:50 133 22 141/63 97 Nasal Cannula 2 12/30/16 16:05 20 98 Room Air 12/30/16 16:05 101.3 101 20 142/71 98 Room Air 12/30/16 16:05 98 Room Air 12/30/16 16:02 101 20 98 Room Air 12/30/16 15:32 100.4 118 28 150/66 90 Room Air Laboratory Tests Test 12/30/16 16:11 White Blood Count 10.6 TH/MM3 (4.0-11.0) Red Blood Count 4.01 MIL/MM3 (4.00-5.30) Hemoglobin 12.4 GM/DL (11.6-15.3) Hematocrit 35.9 % (35.0-46.0) Mean Corpuscular Volume 89.5 FL (80.0-100.0) Mean Corpuscular Hemoglobin 31.0 PG (27.0-34.0) Mean Corpuscular Hemoglobin 34.6 % Concent (32.0-36.0) Red Cell Distribution Width 14.6 % (11.6-17.2) Platelet Count 219 TH/MM3 (150-450) Mean Platelet Volume 8.4 FL (7.0-11.0) Neutrophils (%) (Auto) 91.3 % (16.0-70.0) Lymphocytes (%) (Auto) 3.1 % (9.0-44.0) Monocytes (%) (Auto) 4.8 % (0.0-8.0) Eosinophils (%) (Auto) 0.6 % (0.0-4.0) Basophils (%) (Auto) 0.2 % (0.0-2.0) Neutrophils # (Auto) 9.7 TH/MM3 (1.8-7.7) Lymphocytes # (Auto) 0.3 TH/MM3 (1.0-4.8) Monocytes # (Auto) 0.5 TH/MM3 (0-0.9) Eosinophils # (Auto) 0.1 TH/MM3 (0-0.4) Basophils # (Auto) 0.0 TH/MM3 (0-0.2) CBC Comment DIFF FINAL Differential Comment Prothrombin Time 10.7 SEC (9.8-11.6) Prothromb Time International 1.0 RATIO Ratio Activated Partial 28.5 SEC Thromboplast Time (24.3-30.1) Sodium Level 135 MEQ/L (136-145) Potassium Level 4.3 MEQ/L (3.5-5.1) Chloride Level 99 MEQ/L (98-107) Carbon Dioxide Level 23.4 MEQ/L (21.0-32.0) Anion Gap 13 MEQ/L (5-15) Blood Urea Nitrogen 25 MG/DL (7-18) Creatinine 1.30 MG/DL (0.50-1.00) Estimat Glomerular Filtration 41 ML/MIN (>89) Rate Random Glucose 174 MG/DL (74-106) Lactic Acid Level 2.5 mmol/L (0.4-2.0) Calcium Level 8.9 MG/DL (8.5-10.1) Magnesium Level 1.5 MG/DL (1.5-2.5) Total Creatine Kinase 39 U/L (26-192) Troponin I LESS THAN 0.02 NG/ML (0.02-0.05) B-Type Natriuretic Peptide 35 PG/ML (0-100) Last Impressions Chest X-Ray 12/30/16 7899 Signed Impressions: Service Date/Time: Saturday, December 30, 2016 16:17 - CONCLUSION: Slight bibasilar linear atelectasis. Alana Oliveira MD Narrative Course I, Dr. Whitley, have reviewed the advance practice practitioner's documentation and am in agreement, met with the patient face to face, made the diagnosis, and the medical decision making was done by me. *My assessment and Findings: Pneumonia, paroxysmal A. fib Patient is 71-year-old female who presents to emergency room for evaluation of fevers, cough, right-sided chest pain. Patient reports that she was recently admitted to [facility] and treated with antibiotics for ear infection as well as for COPD exacerbation. Patient also has history of COPD, while receiving a neb treatment, patients heart rate jumped to the 170-180s. Patient was found to be and an abnormal rhythm, questionable SVT. Attempt need to perform Valsalva maneuver as well as carotid massage with no relief of symptoms. 6 mg of adenosine was administered which brought her heart rate down briefly to less than 100, and then went back up to the 150's. Patient appeared to be in a flutter/A. fib rhythm, patient was then given 18 mg of Cardizem IV. After Cardizem was administered, patient converted to NSR. Repeat EKG NSR at 99bpm,. Patient was given an oral dose of cardizem, no cardizem drip was initiated as patient converted back to sinus rhythm. Patient will be admitted for p. afib as well as pneumonia. Critical Care Narrative Aggregate critical care time was 30 minutes. Time to perform other separately billable procedures was not included in the critical care time. My time did not include minutes spent treating any other patients simultaneously or on activities that did not directly contribute to the patient's treatment. The services I provided to this patient were to treat and/or prevent clinically significant deterioration that could result in: , decompensation, deterioration I provided critical care services requiring my management, as noted below: Chart data review, documentation time, medication orders and management, vital sign assessments/reviewing monitor data, ordering and reviewing lab tests, ordering and interpreting/reviewing x-rays and diagnostic studies, care of the patient and discussion of the patient with the admitting physicians. Diagnosis Primary Impression: PNA (pneumonia) Qualified Code: J18.9 - Pneumonia due to infectious organism, unspecified laterality, unspecified part of lung Additional Impressions: AF (paroxysmal atrial fibrillation) Sepsis Qualified Code: A41.9 - Sepsis, due to unspecified organism Chest pain Qualified Code: R07.9 - Chest pain, unspecified type Chandni Whitley DO Dec 30, 2016 17:48
[2016-12-30 18:30] LABS: LACTIC ACID GHOST NOT REPORTABLE
[2016-12-30] MEDS ORDERED: ACETAMINOPHEN 325 MG TAB PO PRN ×2 (18:45→19:00)
[2016-12-30] MEDS ORDERED: Vancomycin Consult Pharmacy 1 EA OTHER SCH ×2 (18:45→19:00)
[2016-12-30] MEDS ORDERED: guaiFENesin/DEXTROMETHORPHAN 200 MG/20 MG/10 ML CUP PO PRN (18:45)
[2016-12-30] MEDS ORDERED: RESP: ALBUTEROL 2.5 MG/IPRATROPIUM 0.5 MG NEB (PRN) INH (18:45)
[2016-12-30] MEDS ORDERED: SODIUM CHLOR 0.9% 1000 ML INJ 1,000 ML IV SCH ×2 (18:45→19:30)
[2016-12-30] MEDS ORDERED: PIPERACIL-TAZO 4.5 GM PREMIX 100 ML IV SCH (18:45)
[2016-12-30] MEDS ORDERED: ONDANSETRON HCL 4 MG/2 ML VIAL IV PRN (18:45)
--- NOTE | 2016-12-30 18:59 | HHI.HP ---
[facility] Primary Care Physician Trae Garsia MD Admission Diagnosis pneumonia, sepsis, paroxysmal atrial fibrillation Diagnoses: Travel History International Travel<30 Days: No Contact w/Intl Traveler <30 Da: No Traveled to Known Affected Are: No Past Family Social History Allergies: Coded Allergies: Morphine (Verified Allergy, Severe, N&V, 12/30/16) Penicillin (Verified Allergy, Mild, HIVES, 12/30/16) "black hairy tongue" Shellfish (Verified Adverse Reaction, Intermediate, swelling, 12/30/16) Physical Exam Vital Signs Vital Signs Date Time Temp Pulse Resp B/P Pulse Ox O2 Delivery O2 Flow Rate FiO2 12/30/16 17:30 98.3 92 20 130/61 98 Nasal Cannula 2 12/30/16 17:20 97.8 98 20 115/68 100 Nasal Cannula 2 12/30/16 16:50 133 22 141/63 97 Nasal Cannula 2 12/30/16 16:05 20 98 Room Air 12/30/16 16:05 101.3 101 20 142/71 98 Room Air 12/30/16 16:05 98 Room Air 12/30/16 16:02 101 20 98 Room Air 12/30/16 15:32 100.4 118 28 150/66 90 Room Air Physical Exam GENERAL: This is a well-nourished, well-developed patient, in no apparent distress. SKIN: No rashes, ecchymoses or lesions. Cool and dry. HEAD: Atraumatic. Normocephalic. No temporal or scalp tenderness. EYES: Pupils equal round and reactive. Extraocular motions intact. No scleral icterus. No injection or drainage. ENT: Nose without bleeding, purulent drainage or septal hematoma. Throat without erythema, tonsillar hypertrophy or exudate. Uvula midline. Airway patent. NECK: Trachea midline. No JVD or lymphadenopathy. Supple, nontender, no meningeal signs. CARDIOVASCULAR: Regular rate and rhythm without murmurs, gallops, or rubs. RESPIRATORY: Clear to auscultation. Breath sounds equal bilaterally. No wheezes , rales, or rhonchi. GASTROINTESTINAL: Abdomen soft, non-tender, nondistended. No hepato-splenomegaly , or palpable masses. No guarding. MUSCULOSKELETAL: Extremities without clubbing, cyanosis, or edema. No joint tenderness, effusion, or edema noted. No calf tenderness. Negative Homans sign bilaterally. NEUROLOGICAL: Awake and alert. Cranial nerves II through XII intact. Motor and sensory grossly within normal limits. Five out of 5 muscle strength in all muscle groups. Normal speech. Laboratory Laboratory Tests Test 12/30/16 16:11 White Blood Count 10.6 Red Blood Count 4.01 Hemoglobin 12.4 Hematocrit 35.9 Mean Corpuscular Volume 89.5 Mean Corpuscular Hemoglobin 31.0 Mean Corpuscular Hemoglobin 34.6 Concent Red Cell Distribution Width 14.6 Platelet Count 219 Mean Platelet Volume 8.4 Neutrophils (%) (Auto) 91.3 Lymphocytes (%) (Auto) 3.1 Monocytes (%) (Auto) 4.8 Eosinophils (%) (Auto) 0.6 Basophils (%) (Auto) 0.2 Neutrophils # (Auto) 9.7 Lymphocytes # (Auto) 0.3 Monocytes # (Auto) 0.5 Eosinophils # (Auto) 0.1 Basophils # (Auto) 0.0 CBC Comment DIFF FINAL Differential Comment Prothrombin Time 10.7 Prothromb Time International 1.0 Ratio Activated Partial 28.5 Thromboplast Time Sodium Level 135 Potassium Level 4.3 Chloride Level 99 Carbon Dioxide Level 23.4 Anion Gap 13 Blood Urea Nitrogen 25 Creatinine 1.30 Estimat Glomerular Filtration 41 Rate Random Glucose 174 Lactic Acid Level 2.5 Calcium Level 8.9 Magnesium Level 1.5 Total Creatine Kinase 39 Troponin I LESS THAN 0.02 B-Type Natriuretic Peptide 35 Date/Time Procedure Status Source Growth 12/30/16 16:11 Aerobic Blood Culture Received Blood Peripheral Pending 12/30/16 16:11 Anaerobic Blood Culture Received Blood Peripheral Pending Result Diagram: 12/30/16 1611 12/30/16 1611 Physician Certification Order for Inpatient Services The services are ordered in accordance with Medicare regulations or non- Medicare payer requirements, as applicable. In the case of services not specified as inpatient-only, they are appropriately provided as inpatient services in accordance with the 2-midnight benchmark. days is the estimated time the patient will need to remain in the hospital, assuming treatment plan goals are met and no additional complications. Fanta Childers MD 16, 2017 18:59
[2016-12-30] MEDS ORDERED: ONDANSETRON HCL 4 MG/2 ML VIAL IVP PRN (19:00)
[2016-12-30] MEDS ORDERED: BISACODYL 10 MG SUPP RECTAL PRN (19:00)
[2016-12-30] MEDS ORDERED: RESP: ALBUTEROL 2.5 MG/IPRATROPIUM 0.5 MG NEB (PRN) NEB (19:00)
[2016-12-30] MEDS ORDERED: methylPREDNISolone SOD SUCC 40 MG/1 ML VIAL IV SCH (19:00)
[2016-12-30] MEDS ORDERED: SENNOSIDES 8.6 MG TAB PO PRN (19:00)
[2016-12-30] MEDS ORDERED: LACTULOSE SYRUP 20 GM/30 ML CUP PO PRN (19:00)
[2016-12-30] MEDS ORDERED: SODIUM CHLORIDE 0.9% FLUSH 10 ML FLUSH IV FLUSH PRN (19:00)
[2016-12-30] MEDS ORDERED: MAGNESIUM HYDROXIDE SUSP 30 ML CUP PO PRN (19:00)
[2016-12-30] MEDS ORDERED: HYDROmorphone HCL PF 1 MG/ML VIAL IV PUSH PRN (19:00)
--- NOTE | 2016-12-30 19:19 | HHI.HP ---
[facility] Trae Garsia MD Admission Diagnosis pneumonia, sepsis, paroxysmal atrial fibrillation Diagnoses: Chief Complaint: Fevers, chills, chest pain Travel History International Travel<30 Days: No Contact w/Intl Traveler <30 Da: No Traveled to Known Affected Are: No Sepsis Criteria SIRS Criteria (2 or more): Temp > 100.9 or < 96.8, Heart rate over 90 Sepsis Criteria (SIRS+source): Infect source susp/known Severe Sepsis (+one): Lactate >2, Acute Oliguria/Renal Failure History of Present Illness Patient is a 71 year old female with PMHX of HTN, COPD, Asthma and arthritis who came in to the hospital for evaluation of chest pain associated with diaphoresis and SOB. Patient states last night she was not feeling well, feeling hot, and was soaking wet from her sweating. She has some chest pain. She thought it will go away but this morning she had the same episode that she contacted the telenurse for [email or web address] and was advised to go to the ED and be evaluated. Patient seen and examined. She reports chest pain is right-sided radiating to the back, 5/10, achy, dull, aggravated by breathing and movement. Patient denies being diagnosed with any heart problems except for hypertension. States that she was treated and completed antibiotics not too long ago about a week and a half ago as she was admitted to [facility] in [place] for pneumonia. Patient also complains of having diarrhea started yesterday, loose stools 4 yesterday, 2 today. She also states that when she was at [facility] to discontinued her blood pressure medication lisinopril secondary to her kidney function wasn't doing well. Reports overall not feeling well, SOB with rest and exertion. Denies headaches, dizziness. Denies abdominal pain and cramping, n/v. Denies dysuria. Patient came in with sinus tachycardia heart rate of 100's. She then was noted to be on Afib with RVR 140's. She was given Cardizem and was started on Cardizem drip for paroxysmal A. fib. Patient converted back to sinus rhythm HR 80s-90s. Review of Systems Except as stated in HPI: all other systems reviewed are Neg Past Family Social History Past Medical History Right wrist arthritis Asthma COPD HTN Prediabetes History of pneumonia Past Surgical History Bilateral foot surgery secondary to abnormal bone growth Reported Medications Reported Meds & Active Scripts Active Epinephrine Inj (Epinephrine) 0.15 Mg/0.3 Ml Inj 0.3 Mg IM DIRECTED PRN Famotidine 20 Mg Tab 20 Mg PO BID Reported Allopurinol 100 Mg Tab 100 Mg PO BID Duoneb (Ipratropium-Albuterol Neb) 0.5-2.5 Mg/3 Ml Neb 1 Nebule INH Q4HR NEB PRN Ventolin Hfa 18 GM Inh (Albuterol Sulfate) 90 Mcg/Act Aer 2 Puff INH Q4-6H PRN Zolpidem (Zolpidem Tartrate) 10 Mg Tab 10 Mg PO HS PRN Allergies: Coded Allergies: Morphine (Verified Allergy, Severe, N&V, 12/30/16) Penicillin (Verified Allergy, Mild, HIVES, 12/30/16) "black hairy tongue" Shellfish (Verified Adverse Reaction, Intermediate, swelling, 12/30/16) Active Ordered Medications Current Medications Medications (Trade) Dose Ordered Sig/Remi Route Start Time Stop Time Status Last Admin (NS Flush) 2 ml UNSCH PRN IVF 12/30/16 16:00 12/30/16 16:11 Guaifenesin/ Dextromethorphan 10 ml 10 ml Q4H PRN PO 12/30/16 18:45 (Vancomycin Consult Pharmacy) 0 ml @ 0 mls/hr UNSCH OTHER 12/30/16 19:00 (Symbicort 160-4.5 Inh) 2 puff Q12HR INH 12/30/16 21:00 12/30/16 22:43 (NS Flush) 2 ml BID IV FLUSH 12/30/16 21:00 12/30/16 21:35 (Zofran Inj) 4 mg Q6H PRN IVP 12/30/16 19:00 (Tylenol) 650 mg Q6H PRN PO 12/30/16 19:00 (Sagola 5-325 Mg) 1 tab Q4H PRN PO 12/30/16 19:00 12/30/16 22:44 (Layne-Colace) 1 tab BID PO 12/30/16 21:00 12/30/16 22:12 (Senokot) 17.2 mg Q12H PRN PO 12/30/16 19:00 (Dulcolax Supp) 10 mg DAILY PRN RECTAL 12/30/16 19:00 (Lactulose Liq) 30 ml DAILY PRN PO 12/30/16 19:00 (Dilaudid Pf Inj) 1 mg Q4H PRN IV PUSH 12/30/16 19:00 Lactobacillus Acidophilus 1 tab 1 tab Q12HR PO 12/30/16 21:00 12/30/16 22:12 Diltiazem HCl 125 mg/Sodium Chloride 125 ml @ 0 mls/hr TITRATE PRN IV 12/30/16 21:00 Aztreonam 2000 mg/ Sodium Chloride 100 ml @ 200 mls/hr Q8H IV 12/30/16 22:00 12/31/16 05:57 (Zithromax Inj/ NS 250 ml Inj) 250 ml @ 250 mls/hr Q24H IV 12/30/16 21:00 12/30/16 20:40 (Zyloprim) 100 mg BID PO 12/30/16 21:00 12/30/16 22:12 (Pepcid) 10 mg BID PO 12/30/16 21:00 12/30/16 21:35 (Ambien) 10 mg HS PRN PO 12/30/16 21:00 12/30/16 22:44 (Cardizem) 30 mg QID PO 12/30/16 21:00 (Lovenox Inj) 70 mg Q12H SQ 12/30/16 21:00 12/30/16 21:35 Miscellaneous 1 ea 1 ea UNSCH PRN OTHER 12/30/16 20:15 (Vancomycin Inj/ NS 250 ml Inj) 262.5 ml @ 250 mls/hr Q24H IV 12/31/16 18:00 Miscellaneous Information SPECIFIC LAB TO BE DIONISIO... ONCE ONCE .XX 01/02/17 17:45 01/02/17 17:46 (NS 1000 ml Inj) 1,000 ml @ 100 mls/hr Q10H IV 12/31/16 05:00 12/31/16 05:57 (SoluMEDROL INJ) 40 mg Q12H IV PUSH 12/31/16 05:00 12/31/16 05:57 Family History Father of cancer of the lung secondary to possibly smoking and having pleurisy Social History Denies alcohol use Former smoker quit about 8 years ago 2 packs per day 10-15 years Denies illicit drug use Physical Exam Vital Signs Vital Signs Date Time Temp Pulse Resp B/P Pulse Ox O2 Delivery O2 Flow Rate FiO2 12/30/16 17:30 98.3 92 20 130/61 98 Nasal Cannula 2 12/30/16 17:20 97.8 98 20 115/68 100 Nasal Cannula 2 12/30/16 16:50 133 22 141/63 97 Nasal Cannula 2 12/30/16 16:05 20 98 Room Air 12/30/16 16:05 101.3 101 20 142/71 98 Room Air 12/30/16 16:05 98 Room Air 12/30/16 16:02 101 20 98 Room Air 12/30/16 15:32 100.4 118 28 150/66 90 Room Air Physical Exam GENERAL: This is an obese, well-developed patient, ill appearing. SKIN: No rashes, ecchymoses or lesions. Warm and dry. HEAD: Atraumatic. Normocephalic. No temporal or scalp tenderness. EYES: Pupils equal round and reactive. Extraocular motions intact. No scleral icterus. No injection or drainage. ENT: Nose without bleeding. Throat without erythema. Uvula midline. Airway patent. NECK: Trachea midline. Supple. CARDIOVASCULAR: Regular rate and rhythm without murmurs, gallops, or rubs. Right substernal pain and tenderness to palpation, right scapular pain and tenderness to palpation RESPIRATORY: Diminished bases. No wheezes, rales, or rhonchi. GASTROINTESTINAL: Abdomen soft, non-tender, nondistended. Bowel sounds active 4. No guarding MUSCULOSKELETAL: Extremities without clubbing, cyanosis, or edema. NEUROLOGICAL: Awake and alert. Cranial nerves II through XII intact. No focal neuro deficit. Motor and sensory grossly within normal limits. Normal speech. Laboratory Laboratory Tests Test 12/30/16 16:11 White Blood Count 10.6 Red Blood Count 4.01 Hemoglobin 12.4 Hematocrit 35.9 Mean Corpuscular Volume 89.5 Mean Corpuscular Hemoglobin 31.0 Mean Corpuscular Hemoglobin 34.6 Concent Red Cell Distribution Width 14.6 Platelet Count 219 Mean Platelet Volume 8.4 Neutrophils (%) (Auto) 91.3 Lymphocytes (%) (Auto) 3.1 Monocytes (%) (Auto) 4.8 Eosinophils (%) (Auto) 0.6 Basophils (%) (Auto) 0.2 Neutrophils # (Auto) 9.7 Lymphocytes # (Auto) 0.3 Monocytes # (Auto) 0.5 Eosinophils # (Auto) 0.1 Basophils # (Auto) 0.0 CBC Comment DIFF FINAL Differential Comment Prothrombin Time 10.7 Prothromb Time International 1.0 Ratio Activated Partial 28.5 Thromboplast Time Sodium Level 135 Potassium Level 4.3 Chloride Level 99 Carbon Dioxide Level 23.4 Anion Gap 13 Blood Urea Nitrogen 25 Creatinine 1.30 Estimat Glomerular Filtration 41 Rate Random Glucose 174 Lactic Acid Level 2.5 Calcium Level 8.9 Magnesium Level 1.5 Total Creatine Kinase 39 Troponin I LESS THAN 0.02 B-Type Natriuretic Peptide 35 Date/Time Procedure Status Source Growth 12/30/16 16:11 Aerobic Blood Culture Received Blood Peripheral Pending 12/30/16 16:11 Anaerobic Blood Culture Received Blood Peripheral Pending Result Diagram: 12/30/16 1611 12/30/16 1611 Assessment and Plan Problem List: (1) Hypertension ICD Code: I10 Status: Chronic (2) AF (paroxysmal atrial fibrillation) ICD Code: I48.0 Status: Acute (3) PNA (pneumonia) ICD Code: J18.9 Status: Acute (4) Chest pain ICD Code: R07.9 Status: Acute (5) COPD with exacerbation ICD Code: J44.1 Status: Acute Assessment and Plan Patient is a 71 year old female with PMHX of HTN, COPD, Arthritis, Asthma who came in [facility] for evaluation of chest pain associated with diaphoresis and SOB. Sepsis, severe COPD exacerbation PNA, HCAP - Patient recently admitted to [facility] for COPD and PNA and completed antibiotic dose - CXR slight bibasilar linear atelectasis - Lactic acid 2.5 - Blood Cultures, sputum culture - IV VAnco, IV cefepime given in the ED - DuoNeb scheduled and when necessary, Solu-Medrol 40 mg every 12 hours - Start azithromycin 500 mg IV, aztreonam 2 g every 8 - Symbicort - Follow up labs in a.m. - CBC, BMP Paroxysmal A. fib A. fib new onset - Patient was given Cardizem IV, Cardizem drip was started - She converted back to sinus rhythm - All EKGs reviewed by me and Dr. So. 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 difficile patient recently had antibiotic exposure from hospitalization - Lactinex every 12 HTN - Trend vitals DVT prop Lovenox PPI famotidine Code Status Full code Discussed Condition With Patient, nursing, Dr. So Physician Certification 2 Midnight Certification Type: Admission for Inpatient Services Order for Inpatient Services The services are ordered in accordance with Medicare regulations or non- Medicare payer requirements, as applicable. In the case of services not specified as inpatient-only, they are appropriately provided as inpatient services in accordance with the 2-midnight benchmark. Estimated LOS (days): 3 days is the estimated time the patient will need to remain in the hospital, assuming treatment plan goals are met and no additional complications. Post-Hospital Plan: Not yet determined Notes: The exam, history, and the medical decision-making described in the above note were completed with the assistance of the mid-level provider. I reviewed and agree with the findings presented. I attest that I had a [id number] encounter with the patient on the same day, and personally performed and documented my assessment and findings in the medical record. 71 year-old female history of hypertension and COPD presenting with chest pain, shortness of breath and diarrhea with recent hospitalization for COPD exacerbation. In the emergency department she developed A. fib/flutter with RVR after initiation of nebulizations received adenosine and Cardizem. Vital signs noted currently sinus Not in acute distress Regular rate and rhythm Lungs are clear decreased breath sounds No edema Chest x-ray image interpreted by me with no acute cardio pulmonary disease EKG tracing interpreted by me with A. fib flutter with RVR with ST depression in the inferior wall and lateral leads Lactic acid of 2.5 COPD exacerbation with acute bronchitis. Pneumonia suspect. Severe sepsis. Continue nebulizations, oxygen and treat for hospital-acquired pneumonia with vancomycin, Zithromax and aztreonam with history of penicillin allergy. Follow- up sputum and blood culture. Chest pain with radiation to the back between shoulder blades likely secondary to above but we'll obtain CTA rule out PE and aortic dissection. Trend cardiac enzymes with abnormal EKG New onset A. fib/flutter with RVR converted to sinus rhythm. Start Cardizem by mouth and Lovenox CHA2 DS VASC score of 3 (age, sex and hypertension). Obtain TSH and echocardiogram Problem Qualifiers (1) PNA (pneumonia): Qualified Code: J18.9 - Pneumonia due to infectious organism, unspecified laterality, unspecified part of lung (2) Chest pain: Qualified Code: R07.9 - Chest pain, unspecified type Brad So MD Dec 30, 2016 19:19 Loi Myles Dec 30, 2016 21:28 laterality, unspecified part of lung (2) Chest pain: Qualified Code: R07.9 - Chest pain, unspecified type Brad So MD Dec 30, 2016 19:19 Loi Myles Dec 30, 2016 21:28
[2016-12-30] MEDS ORDERED: RESP: ALBUTEROL 2.5 MG/IPRATROPIUM 0.5 MG NEB (SCH) NEB (20:00)
[2016-12-30] MEDS ORDERED: PILL SPLITTER OTHER PRN (20:15)
[2016-12-30] MEDS: AZITHROMYCIN INJ 500 MG in SODIUM CHLOR 0.9% 250 ML INJ 250 ML IV SCH (20:40)
[2016-12-30] MEDS ORDERED: DILTIAZEM INJ 125 MG in SODIUM CHLORIDE 0.9% INJ 100 ML IV PRN (21:00)
[2016-12-30] MEDS: DILTIAZEM HCL 30 MG TAB PO SCH (21:00)
[2016-12-30] MEDS ORDERED: IOHEXOL 350 MG/ML 10 ML VIAL (for RAD DIAG) IV ONE (21:02)
--- NOTE | 2016-12-30 21:22 | RADRPT ---
EXAM DATE/TIME: 12/30/2016 21:01 [place] COMPARISON: INDICATIONS : Shortness of breath since last night. IV CONTRAST: 75 cc Omnipaque 350 (iohexol) IV RADIATION DOSE: 23.26 CTDIvol (mGy) MEDICAL HISTORY : Cardiovascular disease. Hypertension. SURGICAL HISTORY : None. CT PULMONARY ANGIOGRAM, September 26, 2015, 9: 56R: Initial ACUITY: 2 days PAIN SCALE: 0/10 LOCATION: chest TECHNIQUE: Volumetric scanning of the chest was performed using a pulmonary embolism protocol MIP images were re constructed. Using automated exposure control and adjustment of the mA and/or kV according to patien t size, radiation dose was kept as low as reasonably achievable to obtain optimal diagnostic quality images. DICOM format image data is available electronically for review and comparison. Follow-up recommendations for incidentally detected pulmonary nodules are based at a minimum on nodul e size and patient risk factors according to Fleischner Society Guidelines. FINDINGS: Extensive COPD is seen with an approximate 2.9 x 1.7 density in the right middle lobe slightly larger since the prior study at which time it measured 3.2 x 1.0 cm in size probable scar, however underlyi ng neoplastic process is difficult to exclude. Mild left lung base atelectasis and/or infiltrate is s een. There are other areas of scarring in the lungs not significantly changed. There is no pleural ef fusion. No appreciable pathological adenopathy is seen within the mediastinum. There is no evidence for PE for technique. Small hiatal hernia is seen. CONCLUSION: 1. There is no evidence for PE for technique. 2. Mild left lung base atelectasis and/or infiltrate is seen not present previously. 3. There is extensive COPD with areas of scarring, however right middle lobe density appears larger a nd still be scar with possibly some inflammation surrounding it, repeat noncontrast chest CT or F-18 FDG PET CTis suggested in 6 months as a conservative follow up. Alana Oliveira MD on December 30, 2016 at 21:15 Board Certified Radiologist. This report was verified electronically.
[2016-12-30] MEDS: FAMOTIDINE 20 MG TAB PO SCH (21:35)
[2016-12-30] MEDS: SODIUM CHLORIDE 0.9% FLUSH 10 ML FLUSH IV FLUSH SCH (21:35)
[2016-12-30] MEDS: ENOXAPARIN SODIUM 80 MG/0.8 ML SYRINGE SQ SCH (21:35)
[2016-12-30] MEDS ORDERED: RESP: ALBUTEROL 2.5 MG/IPRATROPIUM 0.5 MG NEB (SCH) INH (22:00)
[2016-12-30] MEDS: DOCUSATE SODIUM 50 MG/SENNA 8.6 MG TAB PO SCH (22:12)
[2016-12-30] MEDS: LACTOBACILLUS ACIDOPHILUS TAB PO SCH (22:12)
[2016-12-30] MEDS: ALLOPURINOL 100 MG TAB PO SCH (22:12)
[2016-12-30] MEDS: BUDESONIDE-FORMOTEROL 160/4.5 MCG INHALER INH SCH (22:43)
[2016-12-30] MEDS: AZTREONAM INJ 2,000 MG in SODIUM CHLORIDE 0.9% INJ 100 ML IV SCH (22:43)
[2016-12-30] MEDS: ACETAMINOPHEN/HYDROcodone 325 MG/5 MG TAB PO PRN (22:44)
[2016-12-30] MEDS: ZOLPIDEM TARTRATE 10 MG TAB PO PRN (22:44)
[2016-12-31] VITALS (24 sets, daily range): BP systolic 113–144; BP diastolic 53–74; PULSE 62–88; RESP 17–20; TEMP 97.5–98.3; O2SAT 94–97
[2016-12-31] MEDS ORDERED: methylPREDNISolone SOD SUCC 40 MG/1 ML VIAL IV PUSH SCH ×2 (05:00)
[2016-12-31] MEDS: SODIUM CHLOR 0.9% 1000 ML INJ 1,000 ML IV SCH ×2 (05:57→15:33)
[2016-12-31] MEDS: AZTREONAM INJ 2,000 MG in SODIUM CHLORIDE 0.9% INJ 100 ML IV SCH ×2 (05:57→13:24)
[2016-12-31 06:54] LABS: AUTOMATED NEUTROPHIL # 3.8 TH/MM3 (1.8-7.7); BASOPHIL % 0.6 % (0.0-2.0); EOSINOPHIL % 0.1 % (0.0-4.0); HEMATOCRIT 28.7 % (35.0-46.0); HEMO FLAGS DIFF FINAL; LYMPH % 7.5 % (9.0-44.0); LYMPHOCYTE # 0.3 TH/MM3 (1.0-4.8); MEAN CELL VOLUME 90.6 FL (80.0-100.0); MEAN CORPUSCULAR HEMOGLOBIN 30.7 PG (27.0-34.0); MEAN CORPUSCULAR HGB CONC 33.9 % (32.0-36.0); MONO % 4.4 % (0.0-8.0); NEUT % 87.4 % (16.0-70.0); PLATELET COUNT 176 TH/MM3 (150-450); RED BLOOD COUNT 3.17 MIL/MM3 (4.00-5.30); RED CELL DISTRIBUTION WIDTH 14.5 % (11.6-17.2); WHITE BLOOD COUNT 4.4 TH/MM3 (4.0-11.0)
[2016-12-31 07:27] LABS: ANION GAP 11 MEQ/L (5-15); AST (GOT) 13 U/L (15-37); BLOOD UREA NITROGEN 20 MG/DL (7-18); CHLORIDE 109 MEQ/L (98-107); GLOMERULAR FILTRATION RATE 68 ML/MIN (>89); POTASSIUM 4.4 MEQ/L (3.5-5.1); SODIUM (NA) 140 MEQ/L (136-145)
[2016-12-31 07:31] LABS: ALKALINE PHOSPHATASE 45 U/L (45-117); ALT (GPT) 27 U/L (10-53); TOTAL BILIRUBIN ADULT 0.4 MG/DL (0.2-1.0)
[2016-12-31] MEDS: RESP: ALBUTEROL 2.5 MG/IPRATROPIUM 0.5 MG NEB (SCH) INH ×4 (08:51→19:52)
[2016-12-31] MEDS: ENOXAPARIN SODIUM 80 MG/0.8 ML SYRINGE SQ SCH (09:00)
[2016-12-31] MEDS ORDERED: CEFEPIME INJ 1,000 MG in SODIUM CHLORIDE 0.9% INJ 100 ML IV SCH (09:00)
[2016-12-31] MEDS: DOCUSATE SODIUM 50 MG/SENNA 8.6 MG TAB PO SCH ×2 (09:00→21:18)
[2016-12-31] MEDS: SODIUM CHLORIDE 0.9% FLUSH 10 ML FLUSH IV FLUSH SCH ×2 (09:00→21:24)
[2016-12-31] MEDS: BUDESONIDE-FORMOTEROL 160/4.5 MCG INHALER INH SCH ×2 (09:58→21:17)
[2016-12-31] MEDS: ALLOPURINOL 100 MG TAB PO SCH ×2 (09:59→21:19)
[2016-12-31] MEDS: LACTOBACILLUS ACIDOPHILUS TAB PO SCH ×2 (09:59→21:18)
[2016-12-31] MEDS: DILTIAZEM HCL 30 MG TAB PO SCH ×4 (09:59→21:18)
[2016-12-31] MEDS: FAMOTIDINE 20 MG TAB PO SCH ×2 (09:59→21:18)
--- NOTE | 2016-12-31 10:35 | HHI.PR ---
Subjective Remarks Follow-up severe sepsis/HCAP/paroxysmal A. fib 12/31/16-patient seen and examined, denies any chest pain or shortness of breath. Currently afebrile. Now transitioned to by mouth Cardizem Objective Vitals Vital Signs Date Time Temp Pulse Resp B/P Pulse Ox O2 Delivery O2 Flow Rate FiO2 12/31/16 08:51 95 Nasal Cannula 3.00 12/31/16 08:00 88 12/31/16 07:15 76 12/31/16 07:15 98.0 74 20 117/65 96 12/31/16 07:15 96 Nasal Cannula 3.00 12/31/16 06:00 67 12/31/16 05:00 68 12/31/16 04:00 68 12/31/16 03:00 96 Nasal Cannula 3.00 12/31/16 03:00 97.8 73 20 138/74 96 12/31/16 03:00 68 12/31/16 02:00 63 12/31/16 01:00 66 12/31/16 00:01 20 12/31/16 00:00 62 12/30/16 23:00 97 Nasal Cannula 3.00 12/30/16 23:00 98.1 87 22 115/66 97 12/30/16 23:00 72 12/30/16 22:00 80 16 109/76 95 Nasal Cannula 4 12/30/16 22:00 76 12/30/16 21:00 77 16 109/69 95 Nasal Cannula 2 12/30/16 17:30 98.3 92 20 130/61 98 Nasal Cannula 2 12/30/16 17:20 97.8 98 20 115/68 100 Nasal Cannula 2 12/30/16 16:50 133 22 141/63 97 Nasal Cannula 2 12/30/16 16:05 20 98 Room Air 12/30/16 16:05 101.3 101 20 142/71 98 Room Air 12/30/16 16:05 98 Room Air 12/30/16 16:02 101 20 98 Room Air 12/30/16 15:32 100.4 118 28 150/66 90 Room Air I/O 12/30/16 12/30/16 12/30/16 12/31/16 12/31/16 12/31/16 07:00 15:00 23:00 07:00 15:00 23:00 Intake Total 1040 ml Output Total 2000 ml Balance -960 ml Intake Oral 1040 ml Output Urine Total 2000 ml Result Diagram: 12/31/16 0628 12/31/16 0628 Imaging Last Impressions Chest X-Ray 12/30/16 1555 Signed Impressions: Service Date/Time: Friday, December 30, 2016 16:17 - CONCLUSION: Slight bibasilar linear atelectasis. Alana Oliveira MD CT Angiography 12/30/16 0000 Signed Impressions: Service Date/Time: Friday, December 30, 2016 21:01 - CONCLUSION: 1. There is no evidence for PE for technique. 2. Mild left lung base atelectasis and/or infiltrate is seen not present previously. 3. There is extensive COPD with areas of scarring, however right middle lobe density appears larger and still be scar with possibly some inflammation surrounding it, repeat noncontrast chest CT or F-18 FDG PET CTis suggested in 6 months as a conservative follow up. Alana Oliveira MD Objective Remarks GENERAL: NAD SKIN: Warm and dry. HEAD: Normocephalic. EYES: No scleral icterus. No injection or drainage. NECK: Supple, trachea midline. No JVD or lymphadenopathy. CARDIOVASCULAR: Irregular Regular rate and rhythm without murmurs, gallops, or rubs. RESPIRATORY: Breath sounds equal bilaterally. No accessory muscle use. GASTROINTESTINAL: Abdomen soft, non-tender, nondistended. MUSCULOSKELETAL: No cyanosis, or edema. BACK: Nontender without obvious deformity. No CVA tenderness. A/P Problem List: (1) Sepsis ICD Code: A41.9 Status: Acute (2) Hypertension ICD Code: I10 Status: Chronic (3) AF (paroxysmal atrial fibrillation) ICD Code: I48.0 Status: Acute (4) PNA (pneumonia) ICD Code: J18.9 Status: Acute (5) Chest pain ICD Code: R07.9 Status: Acute (6) COPD with exacerbation ICD Code: J44.1 Status: Acute (7) HCAP (healthcare-associated pneumonia) ICD Code: J18.9 Status: Acute Assessment and Plan 71 year-old female with Sepsis, severe COPD exacerbation PNA, HCAP - Patient recently admitted to [facility] for COPD and PNA and completed antibiotic dose - CXR slight bibasilar linear atelectasis - DuoNeb scheduled and when necessary, decrease Solu-Medrol to 20 mg every 12 hours and continue Symbicort , add Spiriva - Continue azithromycin 500 mg IV, vancomycin pending culture report Paroxysmal A. fib A. fib new onset - Status post Cardizem drip and now on by mouth Cardizem 30 mg 4 times a day - [id number] score 3, HTN, female, >65 - Appreciate input from cardiology -OAC per cardiology - ECHO pending -Check lipid profile Chest Pain R/O ACS R/O PE - Chest pain, atypical right side sternal, lateral side reproducible with palpation - CT Angiography negative for PE - Discontinue Lovenox 1 mg/kg Q12H Acute kidney injury - Avoid nephrotoxins - IV fluid for hydration - Trend BMP Hyperglycemia Secondary to steroid use Diarrhea-resolved Hypertension -Normotensive DVT :Lovenox PPI famotidine Problem Qualifiers (1) Sepsis: Qualified Code: A41.9 - Sepsis, due to unspecified organism (2) PNA (pneumonia): Qualified Code: J18.9 - Pneumonia due to infectious organism, unspecified laterality, unspecified part of lung (3) Chest pain: Qualified Code: R07.9 - Chest pain, unspecified type Jak Al MD Dec 31, 2016 10:35
--- NOTE | 2016-12-31 12:51 | MB ---
cc: ADITYA PICKENS DO DATE OF CONSULTATION: 12/31/2016 REASON FOR CONSULTATION Atrial flutter with rapid ventricular response. HISTORY OF PRESENT ILLNESS Alma Bah is a pleasant 71-year-old female who presented to [facility] Emergency Room on December 30, 2016 due to fevers, chills, diaphoresis, chest pain and shortness of breath. She states that she has not felt well for the past month. She has been in and out of [facility] three times for episodes of shortness of breath and what sounds like COPD exacerbation versus pneumonia. She was started on antibiotics and has been discharged. Apparently, the night before arriving in the emergency room she was not feeling well and somewhat feverish and woke up soaking wet in sweat. She felt like it would go away and then woke up in the morning and was feeling overall chills and rigors. She did have some right-sided chest pain which was dull and achy and aggravated by deep breaths and movement. She contacted the [facility] nurse for [facility] and was advised to go to the ER. On arrival she was found to have sinus tachycardia at 100 and underwent DuoNeb due to her wheezing. Afterwards her rhythm changed into what looks like an atrial flutter at 150 beats per minute. She was given two doses of Cardizem IV and a Cardizem drip was going to be started but she was converted back to normal sinus rhythm and so Cardizem oral was given to her. Currently, she denies chest pain, palpitations, lightheadedness or arrhythmias. PAST MEDICAL HISTORY 1. Right wrist arthritis. 2. Asthma. 3. COPD 4. Hypertension. 5. Pre diabetes. 6. History of pneumonia. 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 ALLERGIES 1. MORPHINE. 2. PENICILLIN. 3. SHELLFISH. MEDICATIONS 1. Allopurinol 100 mg b.i.d. 2. DuoNeb 5/2.5 every 4 hours as needed for shortness of breath. 3. Albuterol 90 mcg 2 puffs every 4-6 hours as needed for shortness of breath. 4. Famotidine 20 mg b.i.d. FAMILY HISTORY Denies premature coronary artery disease or sudden cardiac within the family. Father of cancer from the lung secondary to smoking. SOCIAL HISTORY The patient is a former smoker but quit around 8 years ago. 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 Denies illicit drug abuse. REVIEW OF SYSTEMS 14-systems were reviewed including osteopathic pertinent positives and negatives above, otherwise negative. PHYSICAL EXAMINATION VITAL SIGNS: Temperature 98.0, heart rate 84, blood pressure 117/65, respirations 95% on 3 liters. GENERAL: The patient appears older than her stated age. No acute distress, alert, awake and oriented x3. HEENT: Extraocular muscles intact. Mucous membranes moist. NECK: Supple. No JVD at 45 degrees. No carotid bruits heard bilaterally. HEART: Heart is regular rate and rhythm. Positive first and second heart sounds with no murmurs, gallops or rubs. LUNGS: Lungs have decreased breath sounds bilaterally with diffuse wheezing. No rales or rhonchi noted. ABDOMEN: Soft, nontender, nondistended. No organomegaly noted. EXTREMITIES: Show no clubbing, cyanosis or edema. Femoral and distal pulses intact bilaterally. NEUROLOGIC: No focal deficits. SKIN: Warm, dry and intact. OSTEOPATHIC: No kyphoscoliosis, lordosis or paraspinal tender points. LABORATORY FINDINGS Hemoglobin 9.7 down from 12.4, hematocrit 28.7, platelets 176. Potassium 4.4, BUN 20, creatinine 0.83, lactic acid 2.5 decreasing to 1.5, troponin negative x3. TSH 0.483. ELECTROCARDIOGRAM Electrocardiogram (December 30, 2016 at 1640) atrial flutter with 2:1 block, ST depressions possibly due to ischemia versus rate related. Electrocardiogram (December 30, 2016 at 1652) atrial fibrillation with rapid ventricular response, nonspecific ST-T wave changes. Electrocardiogram (December 30, 2016 at 1716) normal sinus rhythm, nonspecific ST-T wave changes. IMPRESSION 1. Atrial fibrillation/atrial flutter with rapid ventricular response. 2. Minor ST-T wave changes, possibly due to rate with atrial fibrillation/atrial flutter versus ischemia. 3. COPD exacerbation/possible healthcare acquired pneumonia. 4. Sepsis. 5. Atypical chest pain which appears musculoskeletal in nature. 6. Acute kidney injury. 7. Anemia. RECOMMENDATIONS 1. Ms. Bah presented with atrial fibrillation and this is most likely secondary to her underlying illness as well as long-term pulmonary issues. 2. We will obtain a 2-D echo to look at her overall left ventricular function, cardiac structure and possible valvulopathy. 3. Heart rates have been controlled and she will continue on Cardizem 30 mg four times a day. Upon discharge this can be continued in the long-acting form. 4. As far as anticoagulation goes, her CHADS vas score equals 3 (hypertension, age, female) but she recently had a large drop in her hemoglobin from 12.4 to 9.7 and I would make sure that this stabilizes before starting her on anticoagulants. 5. She did have changes on her EKG which may be due to rate related atrial fibrillation/atrial flutter, I will discuss with her consideration of pharmacologic nuclear stress testing, although she needs to be better from a pulmonary standpoint before undergoing this. 6. Further recommendations will be made based on the hospital course. Thank you for allowing me to see Alma Bah. If there are any questions, please do not hesitate to call. Aditya Pickens DO VGP/TLL /11:50 AM /12:29 PM
[2016-12-31] MEDS: ACETAMINOPHEN/HYDROcodone 325 MG/5 MG TAB PO PRN ×3 (13:23→21:18)
[2016-12-31 15:47] LABS: BASOPHIL % 0.4 % (0.0-2.0); HEMATOCRIT 27.6 % (35.0-46.0); HEMO FLAGS DIFF FINAL; LYMPH % 3.6 % (9.0-44.0); LYMPHOCYTE # 0.3 TH/MM3 (1.0-4.8); MEAN CELL VOLUME 89.8 FL (80.0-100.0); MEAN CORPUSCULAR HEMOGLOBIN 31.5 PG (27.0-34.0); MEAN CORPUSCULAR HGB CONC 35.1 % (32.0-36.0); PLATELET COUNT 171 TH/MM3 (150-450); RED BLOOD COUNT 3.08 MIL/MM3 (4.00-5.30); RED CELL DISTRIBUTION WIDTH 14.6 % (11.6-17.2); WHITE BLOOD COUNT 7.7 TH/MM3 (4.0-11.0)
[2016-12-31] MEDS: methylPREDNISolone SOD SUCC 40 MG/1 ML VIAL IV PUSH SCH (17:24)
[2016-12-31] MEDS ORDERED: VANCOMYCIN INJ 1,250 MG in SODIUM CHLOR 0.9% 250 ML INJ 250 ML IV SCH (18:00)
[2016-12-31] MEDS: ZOLPIDEM TARTRATE 10 MG TAB PO PRN (21:18)
[2016-12-31] MEDS: AZITHROMYCIN INJ 500 MG in SODIUM CHLOR 0.9% 250 ML INJ 250 ML IV SCH (21:20)
--- NOTE | 2016-12-31 22:05 | ECHRPT ---
Indication: Persistent atrial fibrillation CONCLUSIONS Normal left ventricular size. The left ventricular systolic function is normal with an estimated ejection fraction in the range of 55-60%. No regional wall motion abnormalities are present. Mild concentric left ventricular hypertrophy. Ucaho-[id number]-[id number] mitral valve regurgitation. No mitral valve stenosis. Trace aortic valve regurgitation. No aortic valve stenosis. There is trace tricuspid valve regurgitation. There is estimated mild pulmonary hypertension present (range 40-50 mmHg). The inferior vena cava is dilated. BP: 138 / 74 HR: 73 Rhythm: MEASUREMENTS (Male / Female) Normal Values Technical Quality:Good 2D ECHO LV Diastolic Diameter PLAX 4.8 cm 4.2 - 5.9 / 3.9 - 5.3 cm LV Systolic Diameter PLAX 3.6 cm IVS Diastolic Thickness 1.3 cm 0.6 - 1.0 / 0.6 - 0.9 cm LVPW Diastolic Thickness 0.9 cm 0.6 - 1.0 / 0.6 - 0.9 cm LV Relative Wall Thickness 0.5 RV Internal Dim ED PLAX 2.8 cm M-MODE Aortic Root Diameter MM 2.6 cm LA Systolic Diameter MM 3.3 cm LA Ao Ratio MM 1.3 AV Cusp Separation MM 2.2 cm DOPPLER Mitral E Point Velocity 74.5 cm/s Mitral A Point Velocity 77.5 cm/s Mitral E to A Ratio 1.0 LV E' Lateral Velocity 6.0 cm/s Mitral E to LV E' Lateral Ratio 12.3 LV E' Septal Velocity 9.0 cm/s Mitral E to LV E' Septal Ratio 8.3 TR Peak Velocity 320.0 cm/s TR Peak Gradient 41.0 mmHg FINDINGS LEFT VENTRICLE Normal left ventricular size. The left ventricular systolic function is normal with an estimated ejection fraction in the range of 55-60%. No regional wall motion abnormalities are present. Mild concentric left ventricular hypertrophy. RIGHT VENTRICLE Normal right ventricular size and systolic function. LEFT ATRIUM The left atrial size is normal. RIGHT ATRIUM The right atrial size is normal. ATRIAL SEPTUM Normal atrial septal thickness without atrial level shunting by limited color doppler interrogation. AORTA The aortic root and proximal ascending aorta are normal in size on limited imaging. MITRAL VALVE Structurally normal mitral valve. [id number] mitral valve regurgitation. No mitral valve stenosis. AORTIC VALVE Trileaflet aortic valve. Trace aortic valve regurgitation. No aortic valve stenosis. TRICUSPID VALVE Structurally normal tricuspid valve. There is trace tricuspid valve regurgitation. There is estimated mild pulmonary hypertension present (range 40-50 mmHg). PULMONARY VALVE No pulmonary valve regurgitation or stenosis. VESSELS The inferior vena cava is dilated. PERICARDIUM No pericardial effusion. Winifred Daniels MD, FACC (Electronically Signed) Final Date:31 December 2016 22:03
[2017-01-01] VITALS (28 sets, daily range): BP systolic 124–158; BP diastolic 57–72; PULSE 68–92; RESP 18–22; TEMP 97.5–98.2; O2SAT 95–98
[2017-01-01] MEDS: AZTREONAM INJ 2,000 MG in SODIUM CHLORIDE 0.9% INJ 100 ML IV SCH ×4 (00:06→22:14)
[2017-01-01] MEDS: ACETAMINOPHEN/HYDROcodone 325 MG/5 MG TAB PO PRN ×5 (01:18→22:14)
[2017-01-01] MEDS: SODIUM CHLOR 0.9% 1000 ML INJ 1,000 ML IV SCH ×2 (01:18→10:27)
[2017-01-01] MEDS: RESP: ALBUTEROL 0.63 MG/3 ML NEB (PRN) NEB (03:43)
[2017-01-01] MEDS: methylPREDNISolone SOD SUCC 40 MG/1 ML VIAL IV PUSH SCH ×2 (05:34→17:14)
[2017-01-01 06:26] LABS: AUTOMATED NEUTROPHIL # 8.8 TH/MM3 (1.8-7.7); BASOPHIL # 0.1 TH/MM3 (0-0.2); BASOPHIL % 0.7 % (0.0-2.0); HEMATOCRIT 27.1 % (35.0-46.0); HEMO FLAGS DIFF FINAL; LYMPH % 3.5 % (9.0-44.0); LYMPHOCYTE # 0.3 TH/MM3 (1.0-4.8); MEAN CELL VOLUME 90.6 FL (80.0-100.0); MEAN CORPUSCULAR HEMOGLOBIN 30.7 PG (27.0-34.0); MEAN CORPUSCULAR HGB CONC 33.9 % (32.0-36.0); NEUT % 90.8 % (16.0-70.0); PLATELET COUNT 177 TH/MM3 (150-450); RED BLOOD COUNT 2.99 MIL/MM3 (4.00-5.30); RED CELL DISTRIBUTION WIDTH 14.4 % (11.6-17.2); WHITE BLOOD COUNT 9.7 TH/MM3 (4.0-11.0)
[2017-01-01 06:55] LABS: HDL CHOLESTEROL 62.1 MG/DL (40.0-60.0)
[2017-01-01] MEDS: RESP: ALBUTEROL 2.5 MG/IPRATROPIUM 0.5 MG NEB (SCH) INH ×4 (08:53→20:30)
[2017-01-01] MEDS: ENOXAPARIN SODIUM 30 MG/0.3 ML SYRINGE SQ SCH (09:00)
[2017-01-01] MEDS: SODIUM CHLORIDE 0.9% FLUSH 10 ML FLUSH IV FLUSH SCH ×2 (09:00→20:22)
[2017-01-01] MEDS: BUDESONIDE-FORMOTEROL 160/4.5 MCG INHALER INH SCH ×2 (09:13→20:21)
[2017-01-01] MEDS: TIOTROPIUM BROMIDE 18 MCG INH INH SCH (09:13)
[2017-01-01] MEDS: ALLOPURINOL 100 MG TAB PO SCH ×2 (09:15→20:22)
[2017-01-01] MEDS: DILTIAZEM HCL 30 MG TAB PO SCH ×4 (09:15→20:21)
[2017-01-01] MEDS: LACTOBACILLUS ACIDOPHILUS TAB PO SCH ×2 (09:15→20:20)
[2017-01-01] MEDS: DOCUSATE SODIUM 50 MG/SENNA 8.6 MG TAB PO SCH ×2 (09:15→20:20)
[2017-01-01] MEDS: ASPIRIN EC 81 MG TABEC PO SCH (09:15)
[2017-01-01] MEDS: FAMOTIDINE 20 MG TAB PO SCH ×2 (09:16→20:21)
--- NOTE | 2017-01-01 10:44 | HHI.PR ---
Subjective Remarks Follow-up severe sepsis/HCAP/paroxysmal A. fib 12/31/16-patient seen and examined, denies any chest pain or shortness of breath. Currently afebrile. Now transitioned to by mouth Cardizem 01/01/17-patient seen and examined him and she reported episode of wheezing overnight however resolved this morning. Complains of dizziness. No BM 2 days. Denies any bleeding Objective Vitals Vital Signs Date Time Temp Pulse Resp B/P Pulse Ox O2 Delivery O2 Flow Rate FiO2 01/01/17 10:04 85 01/01/17 09:00 70 01/01/17 08:00 92 01/01/17 07:00 69 01/01/17 07:00 98.2 76 19 124/62 98 01/01/17 07:00 98 Nasal Cannula 3.00 01/01/17 06:01 71 01/01/17 05:01 68 01/01/17 04:01 72 01/01/17 03:43 96 Nasal Cannula 2.00 01/01/17 03:01 69 01/01/17 03:01 97.6 92 22 151/72 95 01/01/17 03:01 95 Nasal Cannula 3.00 01/01/17 02:01 74 01/01/17 01:01 69 01/01/17 00:01 70 12/31/16 23:01 94 Nasal Cannula 3.00 12/31/16 23:01 97.5 76 20 114/53 95 12/31/16 23:01 65 12/31/16 22:01 72 12/31/16 21:01 80 12/31/16 19:01 95 Nasal Cannula 3.00 12/31/16 19:01 98.2 72 20 113/59 95 12/31/16 19:01 71 12/31/16 18:00 75 12/31/16 17:00 77 12/31/16 16:00 74 12/31/16 15:05 94 Nasal Cannula 2.00 12/31/16 15:05 98.3 77 17 120/70 94 12/31/16 15:05 76 12/31/16 14:00 74 12/31/16 13:00 78 12/31/16 12:00 78 12/31/16 11:00 98.0 78 19 144/69 97 7/17/17 11:00 73 12/31/16 11:00 97 Nasal Cannula 3.00 I/O 12/31/16 12/31/16 12/31/16 01/01/17 01/01/17 01/01/17 06:59 14:59 22:59 06:59 14:59 22:59 Intake Total 1040 ml 2190 ml 2300 ml Output Total 2000 ml 2000 ml 2150 ml Balance -960 ml 190 ml 150 ml Intake Oral 1040 ml 840 ml 1080 ml IV Total 1350 ml 1220 ml Output Urine Total 2000 ml 2000 ml 2150 ml # Bowel Movements 0 Result Diagram: 01/01/17 0605 12/31/16 0628 Imaging Last Impressions Chest X-Ray 12/30/16 1555 Signed Impressions: Service Date/Time: Friday, December 30, 2016 16:17 - CONCLUSION: Slight bibasilar linear atelectasis. Alana Oliveira MD CT Angiography 12/30/16 0000 Signed Impressions: Service Date/Time: Friday, December 30, 2016 21:01 - CONCLUSION: 1. There is no evidence for PE for technique. 2. Mild left lung base atelectasis and/or infiltrate is seen not present previously. 3. There is extensive COPD with areas of scarring, however right middle lobe density appears larger and still be scar with possibly some inflammation surrounding it, repeat noncontrast chest CT or F-18 FDG PET CTis suggested in 6 months as a conservative follow up. Alana Oliveira MD Objective Remarks GENERAL: NAD SKIN: Warm and dry. HEAD: Normocephalic. EYES: No scleral icterus. No injection or drainage. NECK: Supple, trachea midline. No JVD or lymphadenopathy. CARDIOVASCULAR: Irregular Regular rate and rhythm without murmurs, gallops, or rubs. RESPIRATORY: Breath sounds equal bilaterally. No accessory muscle use. GASTROINTESTINAL: Abdomen soft, non-tender, nondistended. MUSCULOSKELETAL: No cyanosis, or edema. BACK: Nontender without obvious deformity. No CVA tenderness. A/P Problem List: (1) Sepsis ICD Code: A41.9 Status: Acute (2) Hypertension ICD Code: I10 Status: Chronic (3) AF (paroxysmal atrial fibrillation) ICD Code: I48.0 Status: Acute (4) PNA (pneumonia) ICD Code: J18.9 Status: Acute (5) Chest pain ICD Code: R07.9 Status: Acute (6) COPD with exacerbation ICD Code: J44.1 Status: Acute (7) HCAP (healthcare-associated pneumonia) ICD Code: J18.9 Status: Acute Assessment and Plan 71 year-old female with Sepsis, severe COPD exacerbation HCAP - Patient recently admitted to [facility] for COPD and PNA and completed antibiotic dose - CXR slight bibasilar linear atelectasis - DuoNeb scheduled and when necessary, Solu-Medrol 20 mg every 12 hours and continue Symbicort , Spiriva - Continue Azactam, azithromycin 500 mg IV, vancomycin pending culture report Paroxysmal A. fib A. fib new onset - Status post Cardizem drip and continue Cardizem 30 mg 4 times a day - [id number] score 3, HTN, female, >65 - Appreciate input from cardiology and consider nuclear stress test -OAC per cardiology however will need to rule out GI bleed first - ECHO with EF 55-60% Anemia of chronic disease versus dilutional Check Hemoccult to rule out GI bleed Monitor H&H Constipation Give magnesium citrate 1 now and continue with stool softener Chest Pain R/O ACS R/O PE - Chest pain, atypical right side sternal, lateral side reproducible with palpation - CT Angiography negative for PE Acute kidney injury - Avoid nephrotoxins - IV fluid for hydration - Trend BMP Hyperglycemia Secondary to steroid use Diarrhea-resolved Hypertension -Normotensive DVT :Lovenox PPI famotidine Discharge Planning Discharge when medically stable and clear by cardiology Problem Qualifiers (1) Sepsis: Qualified Code: A41.9 - Sepsis, due to unspecified organism (2) PNA (pneumonia): Qualified Code: J18.9 - Pneumonia due to infectious organism, unspecified laterality, unspecified part of lung (3) Chest pain: Qualified Code: R07.9 - Chest pain, unspecified type Jak Al MD Jan 01, 2017 10:44
[2017-01-01] MEDS: VANCOMYCIN INJ 1,250 MG in SODIUM CHLOR 0.9% 250 ML INJ 250 ML IV SCH (11:40)
--- NOTE | 2017-01-01 11:40 | PD.CARD.PN ---
Subjective Subjective Remarks No chest pain Still with significant SOB Objective Medications Current Medications Medications (Trade) Dose Ordered Sig/Remi Route Start Time Stop Time Status Last Admin (NS Flush) 2 ml UNSCH PRN IVF 12/30/16 16:00 12/30/16 16:11 Guaifenesin/ Dextromethorphan 10 ml 10 ml Q4H PRN PO 12/30/16 18:45 (Vancomycin Consult Pharmacy) 0 ml @ 0 mls/hr UNSCH OTHER 12/30/16 19:00 (Symbicort 160-4.5 Inh) 2 puff Q12HR INH 12/30/16 21:00 01/01/17 09:13 (NS Flush) 2 ml BID IV FLUSH 12/30/16 21:00 12/31/16 21:24 (Zofran Inj) 4 mg Q6H PRN IVP 12/30/16 19:00 (Tylenol) 650 mg Q6H PRN PO 12/30/16 19:00 ([place] 5-325 Mg) 1 tab Q4H PRN PO 12/30/16 19:00 01/01/17 05:34 (Layne-Colace) 1 tab BID PO 12/30/16 21:00 01/01/17 09:15 (Senokot) 17.2 mg Q12H PRN PO 12/30/16 19:00 (Dulcolax Supp) 10 mg DAILY PRN RECTAL 12/30/16 19:00 (Lactulose Liq) 30 ml DAILY PRN PO 12/30/16 19:00 (Dilaudid Pf Inj) 1 mg Q4H PRN IV PUSH 12/30/16 19:00 Lactobacillus Acidophilus 1 tab 1 tab Q12HR PO 12/30/16 21:00 01/01/17 09:15 Aztreonam 2000 mg/ Sodium Chloride 100 ml @ 200 mls/hr Q8H IV 12/30/16 22:00 01/01/17 05:34 (Zithromax Inj/ NS 250 ml Inj) 250 ml @ 250 mls/hr Q24H IV 12/30/16 21:00 12/31/16 21:20 (Zyloprim) 100 mg BID PO 12/30/16 21:00 01/01/17 09:15 (Pepcid) 10 mg BID PO 12/30/16 21:00 01/01/17 09:16 (Ambien) 10 mg HS PRN PO 12/30/16 21:00 12/31/16 21:18 (Cardizem) 30 mg QID PO 12/30/16 21:00 01/01/17 09:15 (Pill Splitter) 1 ea UNSCH PRN OTHER 12/30/16 20:15 Miscellaneous Information SPECIFIC LAB TO BE DIONISIO... ONCE ONCE .XX 01/02/17 23:45 01/02/17 23:46 (SoluMEDROL INJ) 20 mg Q12H IV PUSH 12/31/16 18:00 01/01/17 05:34 (Lovenox Inj) 30 mg Q24H SQ 01/01/17 09:00 (Spiriva Inh) 18 mcg DAILY INH 01/01/17 09:00 01/01/17 09:13 (Ecotrin Ec) 81 mg DAILY PO 01/01/17 09:00 01/01/17 09:15 Magnesium Citrate 300 ml 300 ml ONCE ONCE PO 01/01/17 13:00 01/01/17 13:01 (Vancomycin Inj/ NS 250 ml Inj) 262.5 ml @ 250 mls/hr Q18H IV 01/01/17 12:00 Vital Signs / I&O Vital Signs Date Time Temp Pulse Resp B/P Pulse Ox O2 Delivery O2 Flow Rate FiO2 01/01/17 11:00 95 Nasal Cannula 3.00 01/01/17 11:00 82 01/01/17 11:00 98.1 80 20 136/65 95 01/01/17 10:04 85 01/01/17 09:00 70 01/01/17 08:00 92 01/01/17 07:00 69 01/01/17 07:00 98.2 76 19 124/62 98 01/01/17 07:00 98 Nasal Cannula 3.00 01/01/17 06:01 71 01/01/17 05:01 68 01/01/17 04:01 72 01/01/17 03:43 96 Nasal Cannula 2.00 01/01/17 03:01 69 01/01/17 03:01 97.6 92 22 151/72 95 01/01/17 03:01 95 Nasal Cannula 3.00 01/01/17 02:01 74 01/01/17 01:01 69 01/01/17 00:01 70 12/31/16 23:01 94 Nasal Cannula 3.00 12/31/16 23:01 97.5 76 20 114/53 95 12/31/16 23:01 65 12/31/16 22:01 72 12/31/16 21:01 80 12/31/16 19:01 95 Nasal Cannula 3.00 12/31/16 19:01 98.2 72 20 113/59 95 12/31/16 19:01 71 12/31/16 18:00 75 12/31/16 17:00 77 12/31/16 16:00 74 12/31/16 15:05 94 Nasal Cannula 2.00 12/31/16 15:05 98.3 77 17 120/70 94 12/31/16 15:05 76 12/31/16 14:00 74 12/31/16 13:00 78 12/31/16 12:00 78 I/O 12/31/16 12/31/16 12/31/16 01/01/17 01/01/17 01/01/17 06:59 14:59 22:59 06:59 14:59 22:59 Intake Total 1040 ml 2190 ml 2300 ml Output Total 2000 ml 2000 ml 2150 ml Balance -960 ml 190 ml 150 ml Intake Oral 1040 ml 840 ml 1080 ml IV Total 1350 ml 1220 ml Output Urine Total 2000 ml 2000 ml 2150 ml # Bowel Movements 0 Physical Exam GENERAL: NAD, AAOx3 SKIN: Warm and dry. HEAD: Atraumatic. Normocephalic. EYES: Pupils equal and round. No scleral icterus. No injection or drainage. ENT: No nasal bleeding or discharge. Mucous membranes pink and moist. NECK: Trachea midline. No JVD. CARDIOVASCULAR: Regular rate and rhythm. No murmurs noted RESPIRATORY: No accessory muscle use. Decreased breath sounds bilaterally GASTROINTESTINAL: Abdomen soft, non-tender, nondistended. Hepatic and splenic margins not palpable. MUSCULOSKELETAL: Extremities without clubbing, cyanosis, or edema. No obvious deformities. NEUROLOGICAL: Awake and alert. No obvious cranial nerve deficits. Motor grossly within normal limits. Five out of 5 muscle strength in the arms and legs. Normal speech. PSYCHIATRIC: Appropriate mood and affect; insight and judgment normal. Laboratory Laboratory Tests Test 12/31/16 01/01/17 15:20 06:05 White Blood Count 7.7 TH/MM3 9.7 TH/MM3 Red Blood Count 3.08 MIL/MM3 2.99 MIL/MM3 Hemoglobin 9.7 GM/DL 9.2 GM/DL Hematocrit 27.6 % 27.1 % Mean Corpuscular Volume 89.8 FL 90.6 FL Mean Corpuscular Hemoglobin 31.5 PG 30.7 PG Mean Corpuscular Hemoglobin 35.1 % 33.9 % Concent Red Cell Distribution Width 14.6 % 14.4 % Platelet Count 171 TH/MM3 177 TH/MM3 Mean Platelet Volume 8.2 FL 7.9 FL Neutrophils (%) (Auto) 91.0 % 90.8 % Lymphocytes (%) (Auto) 3.6 % 3.5 % Monocytes (%) (Auto) 5.0 % 5.0 % Eosinophils (%) (Auto) 0.0 % 0.0 % Basophils (%) (Auto) 0.4 % 0.7 % Neutrophils # (Auto) 7.0 TH/MM3 8.8 TH/MM3 Lymphocytes # (Auto) 0.3 TH/MM3 0.3 TH/MM3 Monocytes # (Auto) 0.4 TH/MM3 0.5 TH/MM3 Eosinophils # (Auto) 0.0 TH/MM3 0.0 TH/MM3 Basophils # (Auto) 0.0 TH/MM3 0.1 TH/MM3 CBC Comment DIFF FINAL DIFF FINAL Differential Comment Triglycerides Level 124 MG/DL Cholesterol Level 149 MG/DL LDL Cholesterol 62 MG/DL HDL Cholesterol 62.1 MG/DL Cholesterol/HDL Ratio 2.39 RATIO Assessment and Plan Problem List: (1) COPD with exacerbation (2) HCAP (healthcare-associated pneumonia) (3) Sepsis (4) AF (paroxysmal atrial fibrillation) (5) Chest pain Assessment and Plan 1) COPD/PNA per primary Con't antibiotics 2) Afib/flutter, no events since admission... CHADSVASc = 3 (HTN, Age, Female) Con't Cardizem PO Would avoid BB with significant pulmonary issues No anticoagulation at this time, drop in Hgb 3) Hemoccult pending 4) Chest pain atypical, some EKG changes with rapid rate Eventually consider stress test but not at this time with pulmonary issues and drop in Hgb, can be reevaluated 5) EF 55-60%, Mild LVH, Trace to mild MR, Trace AR/TR, PHTN Problem Qualifiers (1) Sepsis: Qualified Code: A41.9 - Sepsis, due to unspecified organism (2) Chest pain: Qualified Code: R07.9 - Chest pain, unspecified type Aditya Nieevs DO Jan 01, 2017 11:40
[2017-01-01] MEDS ORDERED: MAGNESIUM CITRATE SOLN 300 ML BTL PO ONE (13:00)
--- NOTE | 2017-01-01 14:15 | EKG ---
Date Performed: 12/30/2016 Time Performed: 15:58:54 PTAGE: 71 years EKG: SINUS TACHYCARDIA WITH SHORT AR INTERVAL Compared to prior tracing no significant change AB NORMAL RHYTHM ECG PREVIOUS TRACING : 01/12/2016 17.02 DOCTOR: Abhilash Winslow Interpretating Date/Time 01/01/2017 14:14:40
--- NOTE | 2017-01-01 14:19 | EKG ---
Date Performed: 12/30/2016 Time Performed: 16:38:40 PTAGE: 71 years EKG: ATRIAL FLUTTER WITH 2:1 HEART BLOCK ABNORMAL ECG PREVIOUS TRACING : 12/30/16 @ 15:58 DOCTOR: Abhilash Winslow Interpretating Date/Time 01/01/2017 14:17:57
--- NOTE | 2017-01-01 14:19 | EKG ---
Date Performed: 12/30/2016 Time Performed: 16:40:21 PTAGE: 71 years EKG: ATRIAL FLUTTER/TACHYCARDIA WITH RAPID VENTRICULAR RESPONSE MARKED ST DEPRESSION, CONSIDER SUBENDOCARDIAL INJURY ABNORMAL ECG Since PREVIOUS TRACING , no significant change noted PREVIOUS TRACIN12/30/16 @ 16:38 DOCTOR: Abhilash Winslow Interpretating Date/Time 01/01/2017 14:18:32
--- NOTE | 2017-01-01 14:20 | EKG ---
Date Performed: 12/30/2016 Time Performed: 16:42:27 PTAGE: 71 years EKG: ATRIAL FIBRILLATION WITH RAPID VENTRICULAR RESPONSE MARKED ST DEPRESSION, CONSIDER SUBENDO CARDIAL INJURY ABNORMAL ECG Since PREVIOUS TRACING , no significant change noted PREVIOUS TRACIN12/30/16 16:40 DOCTOR: Abhilash Winslow Interpretating Date/Time 01/01/2017 14:19:01
--- NOTE | 2017-01-01 14:20 | EKG ---
Date Performed: 12/30/2016 Time Performed: 16:50:04 PTAGE: 71 years EKG: ATRIAL FIBRILLATION WITH RAPID VENTRICULAR RESPONSE ST DEVIATION AND MODERATE T-WAVE ABNORM ALITY, CONSIDER INFERIOR ISCHEMIA ABNORMAL ECG Compared to PREVIOUS TRACING the patient has converted to a more irregular rhythm, probably atrial f ibrillation PREVIOUS TRACIN12/30/16 16:42 DOCTOR: Abhilash Winslow Interpretating Date/Time 01/01/2017 14:19:49
--- NOTE | 2017-01-01 14:22 | EKG ---
Date Performed: 12/30/2016 Time Performed: 16:52:04 PTAGE: 71 years EKG: ATRIAL FIBRILLATION WITH RAPID VENTRICULAR RESPONSE NONSPECIFIC ST & T-WAVE ABNORMALITY ABN ORMAL ECG INTERPRETATION BASED ON A DEFAULT AGE OF 42 YEARS Compared to PREVIOUS TRACING ST depression has improved, heart rate has slowed somewhat PREVIOUS TRA CIN12/30/16 DOCTOR: Abhilash Winslow Interpretating Date/Time 01/01/2017 14:20:26
--- NOTE | 2017-01-01 14:22 | EKG ---
Date Performed: 12/30/2016 Time Performed: 17:16:45 PTAGE: 71 years EKG: Sinus rhythm WITH SINUS ARRHYTHMIA WITH SHORT MS INTERVAL NONSPECIFIC ST & T-WAVE ABNORMALITY BORDERLINE ECG INTE RPRETATION BASED ON A DEFAULT AGE OF 42 YEARS Compared to PREVIOUS TRACING atrial fibrillation is no longer present PREVIOUS TRACIN12/30/16 16:5 2 DOCTOR: Abhilash Winslow Interpretating Date/Time 01/01/2017 14:21:05
[2017-01-01] MEDS: AZITHROMYCIN INJ 500 MG in SODIUM CHLOR 0.9% 250 ML INJ 250 ML IV SCH (20:20)
[2017-01-01] MEDS: ZOLPIDEM TARTRATE 10 MG TAB PO PRN (22:14)
[2017-01-01 23:36] LABS: C. DIFF EPI 027 PRESUMPTIVE NEGATIVE (NEGATIVE); C. DIFF TOXIN PCR NEGATIVE (NEGATIVE)
[2017-01-02] VITALS (30 sets, daily range): BP systolic 111–156; BP diastolic 56–88; PULSE 65–96; RESP 16–20; TEMP 98–98.5; O2SAT 94–98
[2017-01-02] MEDS: methylPREDNISolone SOD SUCC 40 MG/1 ML VIAL IV PUSH SCH ×2 (05:54→18:06)
[2017-01-02] MEDS: AZTREONAM INJ 2,000 MG in SODIUM CHLORIDE 0.9% INJ 100 ML IV SCH ×2 (05:55→13:53)
[2017-01-02] MEDS: VANCOMYCIN INJ 1,250 MG in SODIUM CHLOR 0.9% 250 ML INJ 250 ML IV SCH (06:27)
[2017-01-02] MEDS: RESP: ALBUTEROL 2.5 MG/IPRATROPIUM 0.5 MG NEB (SCH) INH ×4 (06:46→20:37)
[2017-01-02 06:56] LABS: AUTOMATED NEUTROPHIL # 8.6 TH/MM3 (1.8-7.7); BASOPHIL # 0.1 TH/MM3 (0-0.2); HEMATOCRIT 27.7 % (35.0-46.0); HEMO FLAGS DIFF FINAL; LYMPH % 4.5 % (9.0-44.0); LYMPHOCYTE # 0.4 TH/MM3 (1.0-4.8); MEAN CELL VOLUME 90.7 FL (80.0-100.0); MEAN CORPUSCULAR HEMOGLOBIN 30.8 PG (27.0-34.0); MONO % 5.1 % (0.0-8.0); NEUT % 89.4 % (16.0-70.0); PLATELET COUNT 186 TH/MM3 (150-450); RED BLOOD COUNT 3.05 MIL/MM3 (4.00-5.30); RED CELL DISTRIBUTION WIDTH 14.6 % (11.6-17.2); WHITE BLOOD COUNT 9.6 TH/MM3 (4.0-11.0)
[2017-01-02 06:59] LABS: POTASSIUM 4.5 MEQ/L (3.5-5.1)
[2017-01-02] MEDS: SODIUM CHLORIDE 0.9% FLUSH 10 ML FLUSH IV FLUSH SCH ×2 (09:00→20:29)
[2017-01-02] MEDS: LACTOBACILLUS ACIDOPHILUS TAB PO SCH ×2 (09:06→20:29)
[2017-01-02] MEDS: DILTIAZEM HCL 30 MG TAB PO SCH ×4 (09:06→20:29)
[2017-01-02] MEDS: ALLOPURINOL 100 MG TAB PO SCH ×2 (09:06→20:28)
[2017-01-02] MEDS: ACETAMINOPHEN/HYDROcodone 325 MG/5 MG TAB PO PRN ×4 (09:06→20:29)
[2017-01-02] MEDS: ASPIRIN EC 81 MG TABEC PO SCH (09:06)
[2017-01-02] MEDS: FAMOTIDINE 20 MG TAB PO SCH ×2 (09:07→20:28)
[2017-01-02] MEDS: ENOXAPARIN SODIUM 30 MG/0.3 ML SYRINGE SQ SCH (09:07)
[2017-01-02] MEDS: DOCUSATE SODIUM 50 MG/SENNA 8.6 MG TAB PO SCH ×2 (09:07→20:29)
[2017-01-02] MEDS: BUDESONIDE-FORMOTEROL 160/4.5 MCG INHALER INH SCH ×2 (09:08→20:29)
[2017-01-02] MEDS: TIOTROPIUM BROMIDE 18 MCG INH INH SCH (09:08)
--- NOTE | 2017-01-02 15:11 | PD.CARD.PN ---
Subjective Subjective Remarks No events overnight No chest pain SOB is better overall Objective Medications Current Medications Medications (Trade) Dose Ordered Sig/Remi Route Start Time Stop Time Status Last Admin (NS Flush) 2 ml UNSCH PRN IVF 12/30/16 16:00 12/30/16 16:11 Guaifenesin/ Dextromethorphan 10 ml 10 ml Q4H PRN PO 12/30/16 18:45 (Vancomycin Consult Pharmacy) 0 ml @ 0 mls/hr UNSCH OTHER 12/30/16 19:00 (Symbicort 160-4.5 Inh) 2 puff Q12HR INH 12/30/16 21:00 01/02/17 09:08 (NS Flush) 2 ml BID IV FLUSH 12/30/16 21:00 01/02/17 09:00 (Zofran Inj) 4 mg Q6H PRN IVP 12/30/16 19:00 (Tylenol) 650 mg Q6H PRN PO 12/30/16 19:00 ([place] 5-325 Mg) 1 tab Q4H PRN PO 12/30/16 19:00 01/02/17 12:53 ([place]ayne-Colace) 1 tab BID PO 12/30/16 21:00 01/02/17 09:07 (Senokot) 17.2 mg Q12H PRN PO 12/30/16 19:00 (Dulcolax Supp) 10 mg DAILY PRN RECTAL 12/30/16 19:00 (Lactulose Liq) 30 ml DAILY PRN PO 12/30/16 19:00 (Dilaudid Pf Inj) 1 mg Q4H PRN IV PUSH 12/30/16 19:00 Lactobacillus Acidophilus 1 tab 1 tab Q12HR PO 12/30/16 21:00 01/02/17 09:06 Aztreonam 2000 mg/ Sodium Chloride 100 ml @ 200 mls/hr Q8H IV 12/30/16 22:00 01/02/17 13:53 (Zithromax Inj/ NS 250 ml Inj) 250 ml @ 250 mls/hr Q24H IV 12/30/16 21:00 01/01/17 20:20 (Zyloprim) 100 mg BID PO 12/30/16 21:00 01/02/17 09:06 (Pepcid) 10 mg BID PO 12/30/16 21:00 01/02/17 09:07 (Ambien) 10 mg HS PRN PO 12/30/16 21:00 01/01/17 22:14 (Cardizem) 30 mg QID PO 12/30/16 21:00 01/02/17 12:53 (Pill Splitter) 1 ea UNSCH PRN OTHER 12/30/16 20:15 Miscellaneous Information SPECIFIC LAB TO BE DIONISIO... ONCE ONCE .XX 01/02/17 23:45 01/02/17 23:46 (SoluMEDROL INJ) 20 mg Q12H IV PUSH 12/31/16 18:00 01/02/17 05:54 (Lovenox Inj) 30 mg Q24H SQ 01/01/17 09:00 01/02/17 09:07 (Spiriva Inh) 18 mcg DAILY INH 01/01/17 09:00 01/02/17 09:08 Aspirin 81 mg 81 mg DAILY PO 01/01/17 09:00 01/02/17 09:06 (Vancomycin Inj/ NS 250 ml Inj) 262.5 ml @ 250 mls/hr Q18H IV 01/01/17 12:00 01/02/17 06:27 Vital Signs / I&O Vital Signs Date Time Temp Pulse Resp B/P Pulse Ox O2 Delivery O2 Flow Rate FiO2 01/02/17 11:30 98.5 79 16 143/69 97 01/02/17 11:30 71 01/02/17 11:30 97 Nasal Cannula 2.00 01/02/17 11:27 98 Nasal Cannula 2.00 01/02/17 08:00 74 01/02/17 07:45 94 Nasal Cannula 2.00 01/02/17 07:45 98.5 76 16 146/79 94 01/02/17 06:05 72 01/02/17 05:20 70 01/02/17 04:39 72 01/02/17 03:20 95 Nasal Cannula 2.00 01/02/17 03:20 98.0 74 20 111/56 95 01/02/17 03:00 71 01/02/17 02:00 66 01/02/17 01:20 65 01/02/17 00:00 80 01/01/17 23:15 98 Nasal Cannula 2.00 7/18/17 23:15 97.9 71 18 137/57 98 01/01/17 23:00 68 01/01/17 22:00 90 01/01/17 21:00 86 01/01/17 20:32 98 Nasal Cannula 2.00 01/01/17 20:15 97 Nasal Cannula 2.00 01/01/17 20:15 97.5 80 22 158/62 97 01/01/17 20:15 85 01/01/17 19:00 75 01/01/17 18:00 76 01/01/17 17:00 86 01/01/17 16:00 79 I/O 01/01/17 01/01/17 01/01/17 01/02/17 01/02/17 01/02/17 07:00 15:00 23:00 07:00 15:00 23:00 Intake Total 2300 ml 1870 ml 1311 ml Output Total 2150 ml 1000 ml 100 ml Balance 150 ml 870 ml 1211 ml Intake Oral 1080 ml 810 ml 720 ml IV Total 1220 ml 1060 ml 591 ml Output Urine Total 2150 ml 1000 ml 100 ml # Voids 3 # Bowel Movements 0 1 2 Physical Exam GENERAL: NAD, AAOx3 SKIN: Warm and dry. HEAD: Atraumatic. Normocephalic. EYES: Pupils equal and round. No scleral icterus. No injection or drainage. ENT: No nasal bleeding or discharge. Mucous membranes pink and moist. NECK: Trachea midline. No JVD. CARDIOVASCULAR: Regular rate and rhythm. No murmurs noted RESPIRATORY: No accessory muscle use. Decreased breath sounds bilaterally GASTROINTESTINAL: Abdomen soft, non-tender, nondistended. Hepatic and splenic margins not palpable. MUSCULOSKELETAL: Extremities without clubbing, cyanosis, or edema. No obvious deformities. NEUROLOGICAL: Awake and alert. No obvious cranial nerve deficits. Motor grossly within normal limits. Five out of 5 muscle strength in the arms and legs. Normal speech. PSYCHIATRIC: Appropriate mood and affect; insight and judgment normal. Laboratory Laboratory Tests Test 01/01/17 01/02/17 20:37 06:10 Stool C. difficile Toxin (PCR) NEGATIVE Stl C. difficile Toxin PRESUMPTIVE Epiderm 027 NEGATIVE White Blood Count 9.6 TH/MM3 Red Blood Count 3.05 MIL/MM3 Hemoglobin 9.4 GM/DL Hematocrit 27.7 % Mean Corpuscular Volume 90.7 FL Mean Corpuscular Hemoglobin 30.8 PG Mean Corpuscular Hemoglobin 34.0 % Concent Red Cell Distribution Width 14.6 % Platelet Count 186 TH/MM3 Mean Platelet Volume 7.9 FL Neutrophils (%) (Auto) 89.4 % Lymphocytes (%) (Auto) 4.5 % Monocytes (%) (Auto) 5.1 % Eosinophils (%) (Auto) 0.0 % Basophils (%) (Auto) 1.0 % Neutrophils # (Auto) 8.6 TH/MM3 Lymphocytes # (Auto) 0.4 TH/MM3 Monocytes # (Auto) 0.5 TH/MM3 Eosinophils # (Auto) 0.0 TH/MM3 Basophils # (Auto) 0.1 TH/MM3 CBC Comment DIFF FINAL Differential Comment Sodium Level 139 MEQ/L Potassium Level 4.5 MEQ/L Chloride Level 109 MEQ/L Carbon Dioxide Level 25.0 MEQ/L Anion Gap 5 MEQ/L Blood Urea Nitrogen 23 MG/DL Creatinine 0.80 MG/DL Estimat Glomerular Filtration 71 ML/MIN Rate Random Glucose 232 MG/DL Calcium Level 8.3 MG/DL Assessment and Plan Problem List: (1) COPD with exacerbation (2) HCAP (healthcare-associated pneumonia) (3) Sepsis (4) AF (paroxysmal atrial fibrillation) (5) Chest pain Assessment and Plan 1) COPD/PNA per primary Con't antibiotics 2) Afib/flutter, no events since admission... CHADSVASc = 3 (HTN, Age, Female) Con't Cardizem PO Would avoid BB with significant pulmonary issues No anticoagulation at this time, drop in Hgb 3) Chest pain atypical, some EKG changes with rapid rate Will plan on stress test in the morning if no wheezing noted 4) EF 55-60%, Mild LVH, Trace to mild MR, Trace AR/TR, PHTN Problem Qualifiers (1) Sepsis: Qualified Code: A41.9 - Sepsis, due to unspecified organism (2) Chest pain: Qualified Code: R07.9 - Chest pain, unspecified type Aditya Nieves DO Jan 02, 2017 15:11
[2017-01-02] MEDS: diphenhydrAMINE HCL 25 MG CAP PO PRN ×2 (18:12→22:20)
--- NOTE | 2017-01-02 19:20 | HHI.PR ---
Subjective Remarks denies cp/sob sob much better Objective Vitals Vital Signs Date Time Temp Pulse Resp B/P Pulse Ox O2 Delivery O2 Flow Rate FiO2 01/02/17 15:30 98.3 79 16 156/83 94 01/02/17 15:30 74 01/02/17 15:30 94 Nasal Cannula 2.00 01/02/17 11:30 98.5 79 16 143/69 97 01/02/17 11:30 71 01/02/17 11:30 97 Nasal Cannula 2.00 01/02/17 11:27 98 Nasal Cannula 2.00 01/02/17 08:00 74 01/02/17 07:45 94 Nasal Cannula 2.00 01/02/17 07:45 98.5 76 16 146/79 94 01/02/17 06:05 72 01/02/17 05:20 70 01/02/17 04:39 72 01/02/17 03:20 95 Nasal Cannula 2.00 01/02/17 03:20 98.0 74 20 111/56 95 01/02/17 03:00 71 01/02/17 02:00 66 01/02/17 01:20 65 01/02/17 00:00 80 01/01/17 23:15 98 Nasal Cannula 2.00 01/01/17 23:15 97.9 71 18 137/57 98 01/01/17 23:00 68 01/01/17 22:00 90 01/01/17 21:00 86 01/01/17 20:32 98 Nasal Cannula 2.00 01/01/17 20:15 97 Nasal Cannula 2.00 01/01/17 20:15 97.5 80 22 158/62 97 01/01/17 20:15 85 I/O 01/01/17 01/01/17 01/01/17 01/02/17 01/02/17 01/02/17 06:59 14:59 22:59 06:59 14:59 22:59 Intake Total 2300 ml 1870 ml 1311 ml Output Total 2150 ml 1000 ml 100 ml Balance 150 ml 870 ml 1211 ml Intake Oral 1080 ml 810 ml 720 ml IV Total 1220 ml 1060 ml 591 ml Output Urine Total 2150 ml 1000 ml 100 ml # Voids 3 # Bowel Movements 0 1 2 Result Diagram: 01/02/17 0610 01/02/17 0610 Imaging Last Impressions Chest X-Ray 12/30/16 1555 Signed Impressions: Service Date/Time: Friday, December 30, 2016 16:17 - CONCLUSION: Slight bibasilar linear atelectasis. Alana Oliveira MD CT Angiography 12/30/16 0000 Signed Impressions: Service Date/Time: Friday, December 30, 2016 21:01 - CONCLUSION: 1. There is no evidence for PE for technique. 2. Mild left lung base atelectasis and/or infiltrate is seen not present previously. 3. There is extensive COPD with areas of scarring, however right middle lobe density appears larger and still be scar with possibly some inflammation surrounding it, repeat noncontrast chest CT or F-18 FDG PET CTis suggested in 6 months as a conservative follow up. Alana Oliveira MD Objective Remarks AAox3 lungs clear BL S1S2 RRR no edema in lower extremities Procedures none Medications and IVs Current Medications Medications (Trade) Dose Ordered Sig/Remi Route Start Time Stop Time Status Last Admin (NS Flush) 2 ml UNSCH PRN IVF 12/30/16 16:00 12/30/16 16:11 (Robitussin Dm 200-20 Mg/10 ml Liq) 10 ml Q4H PRN PO 12/30/16 18:45 (Symbicort 160-4.5 Inh) 2 puff Q12HR INH 12/30/16 21:00 01/02/17 09:08 (NS Flush) 2 ml BID IV FLUSH 12/30/16 21:00 01/02/17 09:00 (Zofran Inj) 4 mg Q6H PRN IVP 12/30/16 19:00 (Tylenol) 650 mg Q6H PRN PO 12/30/16 19:00 ([place] 5-325 Mg) 1 tab Q4H PRN PO 12/30/16 19:00 01/02/17 16:53 (Layne-Colace) 1 tab BID PO 12/30/16 21:00 01/02/17 09:07 (Senokot) 17.2 mg Q12H PRN PO 12/30/16 19:00 (Dulcolax Supp) 10 mg DAILY PRN RECTAL 12/30/16 19:00 (Lactulose Liq) 30 ml DAILY PRN PO 12/30/16 19:00 (Dilaudid Pf Inj) 1 mg Q4H PRN IV PUSH 12/30/16 19:00 (Lactinex) 1 tab Q12HR PO 12/30/16 21:00 01/02/17 09:06 (Zyloprim) 100 mg BID PO 12/30/16 21:00 01/02/17 09:06 (Pepcid) 10 mg BID PO 12/30/16 21:00 01/02/17 09:07 (Ambien) 10 mg HS PRN PO 12/30/16 21:00 01/01/17 22:14 (Cardizem) 30 mg QID PO 12/30/16 21:00 01/02/17 18:06 (Pill Splitter) 1 ea UNSCH PRN OTHER 12/30/16 20:15 Miscellaneous Information SPECIFIC LAB TO BE DIONISIO... ONCE ONCE .XX 01/02/17 23:45 01/02/17 23:46 (SoluMEDROL INJ) 20 mg Q12H IV PUSH 12/31/16 18:00 01/02/17 18:06 (Lovenox Inj) 30 mg Q24H SQ 01/01/17 09:00 01/02/17 09:07 (Spiriva Inh) 18 mcg DAILY INH 01/01/17 09:00 01/02/17 09:08 (Ecotrin Ec) 81 mg DAILY PO 01/01/17 09:00 01/02/17 09:06 Diphenhydramine HCl 25 mg 25 mg Q4H PRN PO 01/02/17 17:30 01/02/17 18:12 (Levaquin 750 Mg Premix Inj) 150 ml @ 100 mls/hr Q24H IV 01/02/17 20:00 A/P Problem List: (1) Sepsis ICD Code: A41.9 Status: Resolved (2) Hypertension ICD Code: I10 Status: Chronic (3) AF (paroxysmal atrial fibrillation) ICD Code: I48.0 Status: Acute (4) PNA (pneumonia) ICD Code: J18.9 Status: Acute (5) Chest pain ICD Code: R07.9 Status: Acute (6) COPD with exacerbation ICD Code: J44.1 Status: Acute (7) HCAP (healthcare-associated pneumonia) ICD Code: J18.9 Status: Acute Assessment and Plan 71 year-old female with Sepsis, severe COPD exacerbation HCAP - Patient recently admitted to [facility] for COPD and PNA and completed antibiotic dose - CXR slight bibasilar linear atelectasis - DuoNeb scheduled and when necessary, Treated with Iv solumedrol and Spiriva - Treated with IV antibiotics - IV Aztreonam, IV Vancomycin and IV Azithromycin. - I will DC IV antibiotics and switch to oral. Will start IV Levaquin PO and DC IV steroids and start prednisone taper. Paroxysmal A. fib A. fib new onset - Status post Cardizem drip and continue Cardizem 30 mg 4 times a day - PIXHd2Vsbc score 3, HTN, female, >65 - Appreciate input from cardiology - For nuclear stress testing in am. - ECHO with EF 55-60% - No anticoagulation yet as per cardiology due to hemoglobin drop. Anemia of chronic disease versus dilutional - Hemoccult negative. 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 - Continue to monitor H&H. If hemoglobin stable then it is okay to start oral anticoagulation Constipation - Status post magnesium titrate. Continue stool softener. Constipation resolved Chest Pain R/O ACS R/O PE - Chest pain, atypical right side sternal, lateral side reproducible with palpation - CT Angiography negative for PE - For nuclear stress test tomorrow. Acute kidney injury - Avoid nephrotoxins - IV fluid for hydration - Trend BMP Hyperglycemia Likely steroid-induced hyperglycemia. Check hemoglobin A1c. Place on SSI with insulin NovoLog and monitor Accu-Cheks. Diarrhea-resolved Hypertension -Blood pressure elevated into the 150 systolic. I will start the patient lisinopril 20 mg by mouth daily. DVT :Lovenox PPI famotidine Problem Qualifiers (1) Sepsis: Qualified Code: A41.9 - Sepsis, due to unspecified organism (2) PNA (pneumonia): Qualified Code: J18.9 - Pneumonia due to infectious organism, unspecified laterality, unspecified part of lung (3) Chest pain: Qualified Code: R07.9 - Chest pain, unspecified type Cale Trimble MD Jan 02, 2017 19:20
[2017-01-02] MEDS ORDERED: LEVOFLOXACIN 750 MG PREMIX INJ 150 ML IV SCH (20:00)
[2017-01-02] MEDS ORDERED: DEXTROSE 50% IN WATER 50 ML VIAL(D50) IV PRN (20:15)
[2017-01-02] MEDS ORDERED: GLUCAGON 1 MG/ML VIAL OTHER PRN (20:15)
[2017-01-02] MEDS: predniSONE 20 MG TAB PO SCH (21:07)
[2017-01-02] MEDS: INSULIN ASPART SUPPLEMENTAL SCALE SQ SCH (21:07)
[2017-01-02] MEDS: ZOLPIDEM TARTRATE 10 MG TAB PO PRN (22:25)
[2017-01-02] MEDS ORDERED: PHARMACY ORDERED LAB ONE (23:45)
[2017-01-03] VITALS (23 sets, daily range): BP systolic 131–158; BP diastolic 66–76; PULSE 60–93; RESP 18–21; TEMP 97.8–98.8; O2SAT 95–99
[2017-01-03] MEDS: INSULIN ASPART SUPPLEMENTAL SCALE SQ SCH ×4 (06:29→22:25)
[2017-01-03 06:45] LABS: HEMATOCRIT 29.2 % (35.0-46.0); MEAN CELL VOLUME 89.6 FL (80.0-100.0); MEAN CORPUSCULAR HEMOGLOBIN 30.7 PG (27.0-34.0); MEAN CORPUSCULAR HGB CONC 34.3 % (32.0-36.0); PLATELET COUNT 202 TH/MM3 (150-450); RED BLOOD COUNT 3.26 MIL/MM3 (4.00-5.30); RED CELL DISTRIBUTION WIDTH 14.7 % (11.6-17.2); REVIEW FLAG FINAL; WHITE BLOOD COUNT 8.4 TH/MM3 (4.0-11.0)
[2017-01-03 07:02] LABS: ANION GAP 7 MEQ/L (5-15); BICARBONATE 27.2 MEQ/L (21.0-32.0); BLOOD UREA NITROGEN 25 MG/DL (7-18); CHLORIDE 106 MEQ/L (98-107); GLOMERULAR FILTRATION RATE 65 ML/MIN (>89); POTASSIUM 4.6 MEQ/L (3.5-5.1); SODIUM (NA) 140 MEQ/L (136-145)
[2017-01-03 07:03] LABS: TRANSFERRIN IRON PROFILE 164 MG/DL (200-360)
[2017-01-03 07:04] LABS: HDL CHOLESTEROL 81.2 MG/DL (40.0-60.0); LDL CHOLESTEROL 64 MG/DL (0-99)
[2017-01-03 07:06] LABS: FERRITIN 743 NG/ML (8-252); VANCOMYCIN TROUGH 7.7 MCG/ML (5.0-10.0)
[2017-01-03] MEDS: RESP: ALBUTEROL 2.5 MG/IPRATROPIUM 0.5 MG NEB (SCH) INH ×3 (07:46→16:56)
[2017-01-03] MEDS: predniSONE 20 MG TAB PO SCH ×2 (08:24→22:16)
[2017-01-03] MEDS: LISINOPRIL 20 MG TAB PO SCH (08:25)
[2017-01-03] MEDS: ALLOPURINOL 100 MG TAB PO SCH ×2 (08:25→22:17)
[2017-01-03] MEDS: DOCUSATE SODIUM 50 MG/SENNA 8.6 MG TAB PO SCH ×2 (08:25→22:16)
[2017-01-03] MEDS: LACTOBACILLUS ACIDOPHILUS TAB PO SCH ×2 (08:25→22:17)
[2017-01-03] MEDS: FAMOTIDINE 20 MG TAB PO SCH ×2 (08:25→22:17)
[2017-01-03] MEDS: ASPIRIN EC 81 MG TABEC PO SCH (08:26)
[2017-01-03] MEDS: DILTIAZEM HCL 30 MG TAB PO SCH ×4 (08:26→22:17)
[2017-01-03] MEDS: TIOTROPIUM BROMIDE 18 MCG INH INH SCH (08:28)
[2017-01-03] MEDS: ENOXAPARIN SODIUM 30 MG/0.3 ML SYRINGE SQ SCH (08:28)
[2017-01-03] MEDS: BUDESONIDE-FORMOTEROL 160/4.5 MCG INHALER INH SCH ×2 (08:28→21:00)
[2017-01-03] MEDS: SODIUM CHLORIDE 0.9% FLUSH 10 ML FLUSH IV FLUSH SCH ×2 (08:31→22:17)
--- NOTE | 2017-01-03 09:25 | PD.CARD.PN ---
Subjective Subjective Remarks SOB is better No chest pain Telemetry showing normal sinus rhythm Objective Medications Current Medications Medications (Trade) Dose Ordered Sig/Remi Route Start Time Stop Time Status Last Admin (NS Flush) 2 ml UNSCH PRN IVF 12/30/16 16:00 12/30/16 16:11 (Robitussin Dm 200-20 Mg/10 ml Liq) 10 ml Q4H PRN PO 12/30/16 18:45 (Symbicort 160-4.5 Inh) 2 puff Q12HR INH 12/30/16 21:00 01/03/17 08:28 (NS Flush) 2 ml BID IV FLUSH 12/30/16 21:00 01/03/17 08:31 (Zofran Inj) 4 mg Q6H PRN IVP 12/30/16 19:00 (Tylenol) 650 mg Q6H PRN PO 12/30/16 19:00 01/02/17 21:13 ([place] 5-325 Mg) 1 tab Q4H PRN PO 12/30/16 19:00 01/02/17 20:29 ([place]ayne-Colace) 1 tab BID PO 12/30/16 21:00 01/02/17 09:07 (Senokot) 17.2 mg Q12H PRN PO 12/30/16 19:00 (Dulcolax Supp) 10 mg DAILY PRN RECTAL 12/30/16 19:00 (Lactulose Liq) 30 ml DAILY PRN PO 12/30/16 19:00 (Dilaudid Pf Inj) 1 mg Q4H PRN IV PUSH 12/30/16 19:00 (Lactinex) 1 tab Q12HR PO 12/30/16 21:00 01/03/17 08:25 (Zyloprim) 100 mg BID PO 12/30/16 21:00 01/03/17 08:25 (Ambien) 10 mg HS PRN PO 12/30/16 21:00 01/02/17 22:25 (Cardizem) 30 mg QID PO 12/30/16 21:00 01/03/17 08:26 (Pill Splitter) 1 ea UNSCH PRN OTHER 12/30/16 20:15 (Lovenox Inj) 30 mg Q24H SQ 01/01/17 09:00 01/03/17 08:28 (Spiriva Inh) 18 mcg DAILY INH 01/01/17 09:00 01/03/17 08:28 (Ecotrin Ec) 81 mg DAILY PO 01/01/17 09:00 01/03/17 08:26 (Benadryl) 25 mg Q4H PRN PO 01/02/17 17:30 01/02/17 22:20 (Deltasone) 20 mg BID PO 01/02/17 21:00 01/03/17 08:24 (Prinivil) 20 mg DAILY PO 01/03/17 09:00 01/03/17 08:25 (D50w (Vial) Inj) 50 ml UNSCH PRN IV 01/02/17 20:15 (Glucagon Inj) 1 mg UNSCH PRN OTHER 01/02/17 20:15 (Pepcid) 20 mg BID PO 01/03/17 09:00 01/03/17 08:25 Vital Signs / I&O Vital Signs Date Time Temp Pulse Resp B/P Pulse Ox O2 Delivery O2 Flow Rate FiO2 01/03/17 07:47 96 Nasal Cannula 2.00 01/03/17 06:00 71 01/03/17 05:00 60 01/03/17 04:00 64 01/03/17 03:28 98.4 72 20 140/66 98 01/03/17 03:28 98 Nasal Cannula 2.00 01/03/17 03:00 65 01/03/17 02:00 81 01/03/17 01:00 65 01/03/17 00:00 62 01/02/17 23:00 75 01/02/17 23:00 97 Nasal Cannula 2.00 01/02/17 23:00 98.3 70 20 140/68 97 01/02/17 22:00 75 01/02/17 21:01 78 01/02/17 20:37 98 Nasal Cannula 2.00 01/02/17 20:00 84 01/02/17 19:39 96 Nasal Cannula 2.00 01/02/17 19:39 98.1 78 20 151/88 96 01/02/17 19:00 74 01/02/17 18:00 96 01/02/17 17:00 74 01/02/17 16:00 74 01/02/17 15:30 98.3 79 16 156/83 94 01/02/17 15:30 74 01/02/17 15:30 94 Nasal Cannula 2.00 01/02/17 15:00 72 01/02/17 14:00 70 01/02/17 13:00 80 01/02/17 12:00 76 01/02/17 11:30 98.5 79 16 143/69 97 01/02/17 11:30 71 01/02/17 11:30 97 Nasal Cannula 2.00 01/02/17 11:27 98 Nasal Cannula 2.00 01/02/17 11:00 78 01/02/17 10:00 90 I/O 01/02/17 01/02/17 01/02/17 01/03/17 01/03/17 01/03/17 07:00 15:00 23:00 07:00 15:00 23:00 Intake Total 1311 ml 1500 ml 480 ml Output Total 100 ml 1600 ml 1200 ml Balance 1211 ml -100 ml -720 ml Intake Oral 720 ml 1400 ml 480 ml IV Total 591 ml 100 ml Output Urine Total 100 ml 1600 ml 1200 ml # Voids 3 # Bowel Movements 2 3 Physical Exam GENERAL: NAD, AAOx3 SKIN: Warm and dry. HEAD: Atraumatic. Normocephalic. EYES: Pupils equal and round. No scleral icterus. No injection or drainage. ENT: No nasal bleeding or discharge. Mucous membranes pink and moist. NECK: Trachea midline. No JVD. CARDIOVASCULAR: Regular rate and rhythm. No murmurs noted RESPIRATORY: No accessory muscle use. Decreased breath sounds bilaterally GASTROINTESTINAL: Abdomen soft, non-tender, nondistended. Hepatic and splenic margins not palpable. MUSCULOSKELETAL: Extremities without clubbing, cyanosis, or edema. No obvious deformities. NEUROLOGICAL: Awake and alert. No obvious cranial nerve deficits. Motor grossly within normal limits. Five out of 5 muscle strength in the arms and legs. Normal speech. PSYCHIATRIC: Appropriate mood and affect; insight and judgment normal. Laboratory Laboratory Tests Test 01/03/17 06:15 White Blood Count 8.4 TH/MM3 Red Blood Count 3.26 MIL/MM3 Hemoglobin 10.0 GM/DL Hematocrit 29.2 % Mean Corpuscular Volume 89.6 FL Mean Corpuscular Hemoglobin 30.7 PG Mean Corpuscular Hemoglobin 34.3 % Concent Red Cell Distribution Width 14.7 % Platelet Count 202 TH/MM3 Mean Platelet Volume 7.8 FL Sodium Level 140 MEQ/L Potassium Level 4.6 MEQ/L Chloride Level 106 MEQ/L Carbon Dioxide Level 27.2 MEQ/L Anion Gap 7 MEQ/L Blood Urea Nitrogen 25 MG/DL Creatinine 0.86 MG/DL Estimat Glomerular Filtration 65 ML/MIN Rate Random Glucose 195 MG/DL Calcium Level 8.6 MG/DL Iron Level 75 MCG/DL Total Iron Binding Capacity 230 MCG/DL Percent Iron Saturation 32.7 % Ferritin 743 NG/ML Triglycerides Level 81 MG/DL Cholesterol Level 161 MG/DL LDL Cholesterol 64 MG/DL HDL Cholesterol 81.2 MG/DL Cholesterol/HDL Ratio 1.98 RATIO Vancomycin Level Trough 7.7 MCG/ML Assessment and Plan Problem List: (1) COPD with exacerbation (2) HCAP (healthcare-associated pneumonia) (3) Sepsis (4) AF (paroxysmal atrial fibrillation) (5) Chest pain Assessment and Plan 1) COPD/PNA per primary Con't antibiotics 2) Afib/flutter, no events since admission... CHADSVASc = 3 (HTN, Age, Female) Con't Cardizem PO Would avoid BB with significant pulmonary issues No anticoagulation at this time, drop in Hgb... will reevaluate after stress testing 3) Chest pain atypical, some EKG changes with rapid rate Stress testing this morning, no wheezing on exam If stress test is positive, then plan cardiac catheterization in the morning 4) EF 55-60%, Mild LVH, Trace to mild MR, Trace AR/TR, PHTN Problem Qualifiers (1) Sepsis: Qualified Code: A41.9 - Sepsis, due to unspecified organism (2) Chest pain: Qualified Code: R07.9 - Chest pain, unspecified type Aditya Nieves DO Jan 03, 2017 09:24
[2017-01-03] MEDS ORDERED: REGADENOSON INJ 0.4 MG/5 ML SYR ONE (10:36)
--- NOTE | 2017-01-03 11:46 | RADRPT ---
EXAM DATE/TIME: 01/03/2017 09:20 [place] COMPARISON: No previous studies available for comparison. INDICATIONS : Right sided chest pain with shortness of breath for five days. Abnormal EKG. Atrial fibrillation. DOSE: 27.1 mCi Tc99m Myoview at stress. 8.7 mCi Tc99m Myoview at rest. 0.4 mg Lexiscan STRESS SYMPTOMS: Chest pain and abdomen pain. EJECTION FRACTION: > 70% MEDICAL HISTORY : Chronic obstructive pulmonary disease. Hypertension. SURGICAL HISTORY : Bilateral feet. ENCOUNTER: Initial ACUITY: 4 - 6 days PAIN SCALE: 3/10 LOCATION: Right chest TECHNIQUE: The patient underwent pharmacologic stress with infusion of prescribed dose. Continuous ECG tracing was monitored during stress. Gated SPECT imaging was performed after stress and conventional SPECT i maging was performed at rest. The examination was performed on a SPECT/CT scanner, both attenuation and non-corrected datasets were reviewed. FINDINGS: DISTRIBUTION: The maximum perfused segment at stress is in the <posterolateral> wall. PERFUSION STUDY: The pattern of perfusion at stress is within normal limits. GATED STUDY: There is intact wall motion and thickening without hypokinetic or dyskinetic segments. CONCLUSION: Normal examination. Intact wall motion with ejection greater than 70%. RISK CATEGORY: Low (<1% Annual Mortality Rate) Charlie England MD on January 03, 2017 at 11:43 Board Certified Radiologist. This report was verified electronically.
--- NOTE | 2017-01-03 14:56 | HHI.FF ---
Face to Face Verification Diagnosis: (1) COPD (chronic obstructive pulmonary disease) (2) Hypertension (3) Sepsis (4) HCAP (healthcare-associated pneumonia) (5) PNA (pneumonia) (6) COPD with exacerbation (7) AF (paroxysmal atrial fibrillation) Physical Therapy Order: Improve ambulation, Strength and gait training Home Health Nursing Order: Oxygen administration education Nursing assessment with vital signs I have seen patient Alma Bah on 01/03/17. My clinical findings support the need for the requested home health care services because: Patient has SOB Need for psychosocial assistance High risk of falls I certify that my clinical findings support that this patient is homebound because: Hx COPD- exertion dyspnea/weakness Unsafe to leave home unassisted Need for psychosocial assistance Unable to use public transportation Cale Trimble MD Jan 03, 2017 14:56
[2017-01-03] MEDS: ACETAMINOPHEN/HYDROcodone 325 MG/5 MG TAB PO PRN ×2 (15:11→22:16)
[2017-01-03 18:30] LABS: HEMOGLOBIN A1a 1.2 %; HEMOGLOBIN A1b 2.3 %; HEMOGLOBIN LA1C 2.8 %; HEMOGLOBIN P3 6.6 %
[2017-01-03] MEDS: RESP: ALBUTEROL 0.63 MG/3 ML NEB (PRN) NEB (22:00)
[2017-01-03] MEDS: APIXABAN 5 MG TABLET PO SCH (22:17)
[2017-01-03] MEDS: ZOLPIDEM TARTRATE 10 MG TAB PO PRN (22:17)
[2017-01-04] VITALS: BP 135/69; PULSE 68; RESP 18; TEMP 97.7; O2SAT 92
[2017-01-04] MEDS: diphenhydrAMINE HCL 25 MG CAP PO PRN (03:26)
[2017-01-04 04:00] VITALS: BP 129/67; PULSE 72; RESP 18; TEMP 97.4; O2SAT 93
[2017-01-04] MEDS: INSULIN ASPART SUPPLEMENTAL SCALE SQ SCH ×2 (06:23→12:00)
[2017-01-04 08:07] VITALS: BP 154/66; PULSE 75; RESP 16; TEMP 97.6; O2SAT 95
[2017-01-04] MEDS: RESP: ALBUTEROL 0.63 MG/3 ML NEB (PRN) NEB ×2 (08:20→12:24)
[2017-01-04] MEDS: TIOTROPIUM BROMIDE 18 MCG INH INH SCH (08:44)
[2017-01-04] MEDS: BUDESONIDE-FORMOTEROL 160/4.5 MCG INHALER INH SCH (08:44)
[2017-01-04] MEDS: LACTOBACILLUS ACIDOPHILUS TAB PO SCH (08:45)
[2017-01-04] MEDS: LISINOPRIL 20 MG TAB PO SCH (08:45)
[2017-01-04] MEDS: FAMOTIDINE 20 MG TAB PO SCH (08:45)
[2017-01-04] MEDS: DILTIAZEM HCL 30 MG TAB PO SCH ×2 (08:46→13:00)
[2017-01-04] MEDS: predniSONE 20 MG TAB PO SCH (08:47)
[2017-01-04] MEDS: APIXABAN 5 MG TABLET PO SCH (08:48)
[2017-01-04] MEDS: ACETAMINOPHEN/HYDROcodone 325 MG/5 MG TAB PO PRN ×2 (08:48→13:03)
[2017-01-04] MEDS: ALLOPURINOL 100 MG TAB PO SCH (08:53)
[2017-01-04] MEDS: SODIUM CHLORIDE 0.9% FLUSH 10 ML FLUSH IV FLUSH SCH (09:00)
[2017-01-04 10:04] LABS: AUTOMATED NEUTROPHIL # 8.9 TH/MM3 (1.8-7.7); BASOPHIL # 0.1 TH/MM3 (0-0.2); BASOPHIL % 1.2 % (0.0-2.0); EOSINOPHIL % 0.1 % (0.0-4.0); HEMATOCRIT 30.9 % (35.0-46.0); HEMO FLAGS DIFF FINAL; LYMPHOCYTE # 0.5 TH/MM3 (1.0-4.8); MEAN CELL VOLUME 89.7 FL (80.0-100.0); MEAN CORPUSCULAR HEMOGLOBIN 30.8 PG (27.0-34.0); MEAN CORPUSCULAR HGB CONC 34.4 % (32.0-36.0); MONO % 4.4 % (0.0-8.0); NEUT % 89.3 % (16.0-70.0); PLATELET COUNT 234 TH/MM3 (150-450); RED BLOOD COUNT 3.44 MIL/MM3 (4.00-5.30); RED CELL DISTRIBUTION WIDTH 14.5 % (11.6-17.2); WHITE BLOOD COUNT 9.9 TH/MM3 (4.0-11.0)
[2017-01-04 11:41] VITALS: PULSE 59
[2017-01-04 12:01] VITALS: BP 140/74; PULSE 65; RESP 16; TEMP 98.3; O2SAT 95
--- NOTE | 2017-01-04 15:22 | PD.CARD.PN ---
Subjective Subjective Remarks No chest pain, no shortness of breath No events overnight Objective Medications Current Medications Medications (Trade) Dose Ordered Sig/Remi Route Start Time Stop Time Status Last Admin (NS Flush) 2 ml UNSCH PRN IVF 12/30/16 16:00 12/30/16 16:11 (Robitussin Dm 200-20 Mg/10 ml Liq) 10 ml Q4H PRN PO 12/30/16 18:45 (Symbicort 160-4.5 Inh) 2 puff Q12HR INH 12/30/16 21:00 01/04/17 08:44 (NS Flush) 2 ml BID IV FLUSH 12/30/16 21:00 01/03/17 22:17 (Zofran Inj) 4 mg Q6H PRN IVP 12/30/16 19:00 (Tylenol) 650 mg Q6H PRN PO 12/30/16 19:00 01/02/17 21:13 ([place] 5-325 Mg) 1 tab Q4H PRN PO 12/30/16 19:00 01/04/17 13:03 ([place]-Colace) 1 tab BID PO 12/30/16 21:00 01/03/17 22:16 (Senokot) 17.2 mg Q12H PRN PO 12/30/16 19:00 (Dulcolax Supp) 10 mg DAILY PRN RECTAL 12/30/16 19:00 (Lactulose Liq) 30 ml DAILY PRN PO 12/30/16 19:00 (Dilaudid Pf Inj) 1 mg Q4H PRN IV PUSH 12/30/16 19:00 (Lactinex) 1 tab Q12HR PO 12/30/16 21:00 01/04/17 08:45 (Zyloprim) 100 mg BID PO 12/30/16 21:00 01/04/17 08:53 (Ambien) 10 mg HS PRN PO 12/30/16 21:00 01/03/17 22:17 (Cardizem) 30 mg QID PO 12/30/16 21:00 01/04/17 13:00 (Pill Splitter) 1 ea UNSCH PRN OTHER 12/30/16 20:15 (Spiriva Inh) 18 mcg DAILY INH 01/01/17 09:00 01/04/17 08:44 (Benadryl) 25 mg Q4H PRN PO 01/02/17 17:30 01/04/17 03:26 (Deltasone) 20 mg BID PO 01/02/17 21:00 01/04/17 08:47 (Prinivil) 20 mg DAILY PO 01/03/17 09:00 01/04/17 08:45 (D50w (Vial) Inj) 50 ml UNSCH PRN IV 01/02/17 20:15 (Glucagon Inj) 1 mg UNSCH PRN OTHER 01/02/17 20:15 (Pepcid) 20 mg BID PO 01/03/17 09:00 01/04/17 08:45 (Eliquis) 5 mg BID PO 01/03/17 21:00 01/04/17 08:48 Vital Signs / I&O Vital Signs Date Time Temp Pulse Resp B/P Pulse Ox O2 Delivery O2 Flow Rate FiO2 01/04/17 12:01 98.3 65 16 140/74 95 01/04/17 11:41 59 01/04/17 08:07 97.6 75 16 154/66 95 01/04/17 08:00 Room Air 01/04/17 04:00 97.4 72 18 129/67 93 01/04/17 04:00 Room Air 01/04/17 00:00 Room Air 01/04/17 00:00 97.7 68 18 135/69 92 01/03/17 21:11 71 01/03/17 20:00 Room Air 01/03/17 20:00 97.8 65 21 145/67 95 01/03/17 18:32 131/69 01/03/17 18:06 93 01/03/17 17:27 77 01/03/17 16:38 95 Room Air 01/03/17 16:00 82 I/O 01/03/17 01/03/17 01/03/17 01/04/17 01/04/17 01/04/17 07:00 15:00 23:00 07:00 15:00 23:00 Intake Total 480 ml 2040 ml 480 ml Output Total 1200 ml 2700 ml 1000 ml Balance -720 ml -660 ml -520 ml Intake Oral 480 ml 2040 ml 480 ml Output Urine Total 1200 ml 2700 ml 1000 ml # Voids 2 # Bowel Movements 1 Physical Exam GENERAL: NAD, AAOx3 SKIN: Warm and dry. HEAD: Atraumatic. Normocephalic. EYES: Pupils equal and round. No scleral icterus. No injection or drainage. ENT: No nasal bleeding or discharge. Mucous membranes pink and moist. NECK: Trachea midline. No JVD. CARDIOVASCULAR: Regular rate and rhythm. No murmurs noted RESPIRATORY: No accessory muscle use. Decreased breath sounds bilaterally GASTROINTESTINAL: Abdomen soft, non-tender, nondistended. Hepatic and splenic margins not palpable. MUSCULOSKELETAL: Extremities without clubbing, cyanosis, or edema. No obvious deformities. NEUROLOGICAL: Awake and alert. No obvious cranial nerve deficits. Motor grossly within normal limits. Five out of 5 muscle strength in the arms and legs. Normal speech. PSYCHIATRIC: Appropriate mood and affect; insight and judgment normal. Laboratory Laboratory Tests Test 01/04/17 06:55 White Blood Count 9.9 TH/MM3 Red Blood Count 3.44 MIL/MM3 Hemoglobin 10.6 GM/DL Hematocrit 30.9 % Mean Corpuscular Volume 89.7 FL Mean Corpuscular Hemoglobin 30.8 PG Mean Corpuscular Hemoglobin 34.4 % Concent Red Cell Distribution Width 14.5 % Platelet Count 234 TH/MM3 Mean Platelet Volume 8.2 FL Neutrophils (%) (Auto) 89.3 % Lymphocytes (%) (Auto) 5.0 % Monocytes (%) (Auto) 4.4 % Eosinophils (%) (Auto) 0.1 % Basophils (%) (Auto) 1.2 % Neutrophils # (Auto) 8.9 TH/MM3 Lymphocytes # (Auto) 0.5 TH/MM3 Monocytes # (Auto) 0.4 TH/MM3 Eosinophils # (Auto) 0.0 TH/MM3 Basophils # (Auto) 0.1 TH/MM3 CBC Comment DIFF FINAL Differential Comment Assessment and Plan Problem List: (1) COPD with exacerbation (2) HCAP (healthcare-associated pneumonia) (3) Sepsis (4) AF (paroxysmal atrial fibrillation) (5) Chest pain Assessment and Plan 1) COPD/PNA per primary Con't antibiotics 2) Afib/flutter, no events since admission... CHADSVASc = 3 (HTN, Age, Female) Con't Cardizem PO Would avoid BB with significant pulmonary issues Started on Eliquis, Hgb stable... plan CBC in 1 week and follow up with PCP... follow up in the office with me in 2-4 weeks 3) Chest pain atypical, some EKG changes with rapid rate Stress test with no ischemia 4) EF 55-60%, Mild LVH, Trace to mild MR, Trace AR/TR, PHTN 5) Cardiovascularly stable for discharge Problem Qualifiers (1) Sepsis: Qualified Code: A41.9 - Sepsis, due to unspecified organism (2) Chest pain: Qualified Code: R07.9 - Chest pain, unspecified type Aditya Nieves DO Jan 04, 2017 15:22
[2017-01-04] MEDS ORDERED: DILT31TA PO (15:26)
[2017-01-04] MEDS ORDERED: HYDR-3516 PO (15:26)
[2017-01-04] MEDS ORDERED: SPIRCAP INH (15:26)
[2017-01-04] MEDS ORDERED: SYMB160A INH (15:26)
[2017-01-04] MEDS ORDERED: LISI-515 PO (15:26)
[2017-01-04] MEDS ORDERED: APIX5TAB PO (15:26)
[2017-01-04] MEDS ORDERED: PRED20 PO (15:43)
[2017-01-04] MEDS ORDERED: LEVO500T8 PO ×2 (15:43→15:44)
--- NOTE | 2017-01-04 15:47 | HHI.PR ---
Subjective Remarks late entry - patient seen on 01/03 at 8:30 am Patient denies cp/sob denies fevers/chills Objective Vitals Vital Signs Date Time Temp Pulse Resp B/P Pulse Ox O2 Delivery O2 Flow Rate FiO2 01/04/17 12:01 98.3 65 16 140/74 95 01/04/17 11:41 59 01/04/17 08:07 97.6 75 16 154/66 95 01/04/17 08:00 Room Air 01/04/17 04:00 97.4 72 18 129/67 93 01/04/17 04:00 Room Air 01/04/17 00:00 Room Air 01/04/17 00:00 97.7 68 18 135/69 92 01/03/17 21:11 71 01/03/17 20:00 Room Air 01/03/17 20:00 97.8 65 21 145/67 95 01/03/17 18:32 131/69 01/03/17 18:06 93 01/03/17 17:27 77 01/03/17 16:38 95 Room Air 01/03/17 16:00 82 I/O 01/03/17 01/03/17 01/03/17 01/04/17 01/04/17 01/04/17 07:00 15:00 23:00 07:00 15:00 23:00 Intake Total 480 ml 2040 ml 480 ml Output Total 1200 ml 2700 ml 1000 ml Balance -720 ml -660 ml -520 ml Intake Oral 480 ml 2040 ml 480 ml Output Urine Total 1200 ml 2700 ml 1000 ml # Voids 2 # Bowel Movements 1 Result Diagram: 01/04/17 0655 01/03/17 0615 Imaging Last Impressions Myocardial Perfusion Scan Nuc Med 01/03/17 0700 Signed Impressions: Service Date/Time: December 09:20 - CONCLUSION: Normal examination. Intact wall motion with ejection greater than 70%%. RISK CATEGORY : Low (<1%% Annual Mortality Rate) Charlie England MD Chest X-Ray 12/30/16 1555 Signed Impressions: Service Date/Time: Friday, December 30, 2016 16:17 - CONCLUSION: Slight bibasilar linear atelectasis. Alana Oliveira MD CT Angiography 12/30/16 0000 Signed Impressions: Service Date/Time: Friday, December 30, 2016 21:01 - CONCLUSION: 1. There is no evidence for PE for technique. 2. Mild left lung base atelectasis and/or infiltrate is seen not present previously. 3. There is extensive COPD with areas of scarring, however right middle lobe density appears larger and still be scar with possibly some inflammation surrounding it, repeat noncontrast chest CT or F-18 FDG PET CTis suggested in 6 months as a conservative follow up. Alana Oliveira MD Objective Remarks AAox3 lungs clear BL S1S2 RRR no edema in lower extremities Procedures none Medications and IVs Current Medications Medications (Trade) Dose Ordered Sig/Remi Route Start Time Stop Time Status Last Admin (NS Flush) 2 ml UNSCH PRN IVF 12/30/16 16:00 12/30/16 16:11 (Robitussin Dm 200-20 Mg/10 ml Liq) 10 ml Q4H PRN PO 12/30/16 18:45 (Symbicort 160-4.5 Inh) 2 puff Q12HR INH 12/30/16 21:00 01/04/17 08:44 (NS Flush) 2 ml BID IV FLUSH 12/30/16 21:00 01/03/17 22:17 (Zofran Inj) 4 mg Q6H PRN IVP 12/30/16 19:00 (Tylenol) 650 mg Q6H PRN PO 12/30/16 19:00 01/02/17 21:13 ([place] 5-325 Mg) 1 tab Q4H PRN PO 12/30/16 19:00 01/04/17 13:03 (Layne-Colace) 1 tab BID PO 12/30/16 21:00 01/03/17 22:16 (Senokot) 17.2 mg Q12H PRN PO 12/30/16 19:00 (Dulcolax Supp) 10 mg DAILY PRN RECTAL 12/30/16 19:00 (Lactulose Liq) 30 ml DAILY PRN PO 12/30/16 19:00 (Dilaudid Pf Inj) 1 mg Q4H PRN IV PUSH 12/30/16 19:00 (Lactinex) 1 tab Q12HR PO 12/30/16 21:00 01/04/17 08:45 (Zyloprim) 100 mg BID PO 12/30/16 21:00 01/04/17 08:53 (Ambien) 10 mg HS PRN PO 12/30/16 21:00 01/03/17 22:17 (Cardizem) 30 mg QID PO 12/30/16 21:00 01/04/17 13:00 (Pill Splitter) 1 ea UNSCH PRN OTHER 12/30/16 20:15 (Spiriva Inh) 18 mcg DAILY INH 01/01/17 09:00 01/04/17 08:44 (Benadryl) 25 mg Q4H PRN PO 01/02/17 17:30 01/04/17 03:26 (Deltasone) 20 mg BID PO 01/02/17 21:00 01/04/17 08:47 (Prinivil) 20 mg DAILY PO 01/03/17 09:00 01/04/17 08:45 (D50w (Vial) Inj) 50 ml UNSCH PRN IV 01/02/17 20:15 (Glucagon Inj) 1 mg UNSCH PRN OTHER 01/02/17 20:15 (Pepcid) 20 mg BID PO 01/03/17 09:00 01/04/17 08:45 (Eliquis) 5 mg BID PO 01/03/17 21:00 01/04/17 08:48 Urinary Catheter: No Vascular Central Line Catheter: No A/P Problem List: (1) Sepsis ICD Code: A41.9 Status: Resolved (2) Hypertension ICD Code: I10 Status: Chronic (3) AF (paroxysmal atrial fibrillation) ICD Code: I48.0 Status: Acute (4) PNA (pneumonia) ICD Code: J18.9 Status: Acute (5) Chest pain ICD Code: R07.9 Status: Acute (6) COPD with exacerbation ICD Code: J44.1 Status: Acute (7) HCAP (healthcare-associated pneumonia) ICD Code: J18.9 Status: Acute Assessment and Plan 71 year-old female with Sepsis, severe COPD exacerbation HCAP - Patient recently admitted to [facility] for COPD and PNA and completed antibiotic dose - CXR slight bibasilar linear atelectasis - DuoNeb scheduled and when necessary, Treated with Iv solumedrol and Spiriva - Treated with IV antibiotics - IV Aztreonam, IV Vancomycin and IV Azithromycin. - DC IV antibiotics and start oral Levaquin x 5 days. Paroxysmal A. fib A. fib new onset - Status post Cardizem drip and continue Cardizem 30 mg 4 times a day - XCDEf0Nonp score 3, HTN, female, >65 - Appreciate input from cardiology - For nuclear stress testing in am. - ECHO with EF 55-60% -Discussed the care with Dr. Nieves. Hemoglobin is stable. We will start the patient on Eliquis and if hemoglobin is stable in a.m. then the patient will be able to be discharged. Anemia of chronic disease versus dilutional - Hemoccult negative. 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 - Continue to monitor H&H. If hemoglobin stable then it is okay to start oral anticoagulation Constipation - Status post magnesium titrate. Continue stool softener. Constipation resolved Chest Pain R/O ACS R/O PE - Chest pain, atypical right side sternal, lateral side reproducible with palpation - CT Angiography negative for PE - For nuclear stress test tomorrow. Acute kidney injury - Avoid nephrotoxins - IV fluid for hydration - Trend BMP Hyperglycemia/New onset Diabetes Hyperglycemia likely worsened by steroid use, however patient has diabetes type 2. Hemoglobin A1c is 7.2. Will discuss with patient regarding starting metformin upon discharge. Continue SSI with insulin NovoLog and continue to monitor Accu-Cheks. Diarrhea-resolved Hypertension -Blood pressure elevated into the 150 systolic. Blood pressure much improved. Continue lisinopril 20 mg by mouth daily. DVT :Lovenox PPI famotidine Problem Qualifiers (1) Sepsis: Qualified Code: A41.9 - Sepsis, due to unspecified organism (2) PNA (pneumonia): Qualified Code: J18.9 - Pneumonia due to infectious organism, unspecified laterality, unspecified part of lung (3) Chest pain: Qualified Code: R07.9 - Chest pain, unspecified type Cale Trimble MD Jan 04, 2017 15:47
[2017-01-04] MEDS ORDERED: METF500T PO (15:48)
[2017-01-04] MEDS ORDERED: NOVOLOGP2 SQ (15:53)
[2017-01-04] MEDS ORDERED: INSU1MIS15 (15:56)
[2017-01-04] MEDS ORDERED: GLUCKIT15 (15:56)
[2017-01-04] MEDS ORDERED: GLUCTES12 (15:56)
[2017-01-04] MEDS ORDERED: LANCETS1 MI1 (15:56)
[2017-01-04] MEDS ORDERED: LEVOFLOXACIN 500 MG TAB PO SCH (16:00)
--- NOTE | 2017-01-04 16:00 | HHI.DS ---
Discharge Summary Admission Date Dec 30, 2016 at 17:48 Discharge Date: Jan 04, 2017 Admitting Diagnosis pneumonia, sepsis, paroxysmal atrial fibrillation (1) Sepsis ICD Code: A41.9 (2) Hypertension ICD Code: I10 (3) AF (paroxysmal atrial fibrillation) ICD Code: I48.0 (4) PNA (pneumonia) ICD Code: J18.9 (5) Chest pain ICD Code: R07.9 (6) COPD with exacerbation ICD Code: J44.1 (7) HCAP (healthcare-associated pneumonia) ICD Code: J18.9 (8) New onset type 2 diabetes mellitus ICD Code: E11.9 Procedures none Brief History - From Admission Patient is a 71 year old female with PMHX of HTN, COPD, Asthma and arthritis who came in to the hospital for evaluation of chest pain associated with diaphoresis and SOB. Patient states last night she was not feeling well, feeling hot, and was soaking wet from her sweating. She has some chest pain. She thought it will go away but this morning she had the same episode that she contacted the telenurse for [employer] and was advised to go to the ED and be evaluated. Patient seen and examined. She reports chest pain is right-sided radiating to the back, 5/10, achy, dull, aggravated by breathing and movement. Patient denies being diagnosed with any heart problems except for hypertension. States that she was treated and completed antibiotics not too long ago about a week and a half ago as she was admitted to [facility] in [facility] for pneumonia. Patient also complains of having diarrhea started yesterday, loose stools 4 yesterday, 2 today. She also states that when she was at [facility] to discontinued her blood pressure medication lisinopril secondary to her kidney function wasn't doing well. Reports overall not feeling well, SOB with rest and exertion. Denies headaches, dizziness. Denies abdominal pain and cramping, n/v. Denies dysuria. Patient came in with sinus tachycardia heart rate of 100's. She then was noted to be on Afib with RVR 140's. She was given Cardizem and was started on Cardizem ip for paroxysmal A. fib. Patient converted back to sinus rhythm HR 80s-90s. CBC/BMP: 01/04/17 0655 01/03/17 0615 Significant Findings Laboratory Tests Test 01/02/17 01/03/17 01/04/17 06:10 06:15 06:55 Red Blood Count 3.05 MIL/MM3 3.26 MIL/MM3 3.44 MIL/MM3 (4.00-5.30) (4.00-5.30) (4.00-5.30) Hemoglobin 9.4 GM/DL 10.0 GM/DL 10.6 GM/DL (11.6-15.3) (11.6-15.3) (11.6-15.3) Hematocrit 27.7 % 29.2 % 30.9 % (35.0-46.0) (35.0-46.0) (35.0-46.0) Neutrophils (%) (Auto) 89.4 % 89.3 % (16.0-70.0) (16.0-70.0) Lymphocytes (%) (Auto) 4.5 % 5.0 % (9.0-44.0) (9.0-44.0) Neutrophils # (Auto) 8.6 TH/MM3 8.9 TH/MM3 (1.8-7.7) (1.8-7.7) Lymphocytes # (Auto) 0.4 TH/MM3 0.5 TH/MM3 (1.0-4.8) (1.0-4.8) Chloride Level 109 MEQ/L (98-107) Blood Urea Nitrogen 23 MG/DL (7-18) 25 MG/DL (7-18) Estimat Glomerular Filtration 71 ML/MIN (>89) 65 ML/MIN (>89) Rate Random Glucose 232 MG/DL 195 MG/DL (74-106) (74-106) Calcium Level 8.3 MG/DL (8.5-10.1) Hemoglobin A1c 7.2 % (4.3-6.0) Total Iron Binding Capacity 230 MCG/DL (250-450) Ferritin 743 NG/ML (8-252) HDL Cholesterol 81.2 MG/DL (40.0-60.0) Imaging Last Impressions Myocardial Perfusion Scan Nuc Med 01/03/17 0700 Signed Impressions: Service Date/Time: December 09:20 - CONCLUSION: Normal examination. Intact wall motion with ejection greater than 70%%. RISK CATEGORY : Low (<1%% Annual Mortality Rate) Charlie England MD Chest X-Ray 12/30/16 1555 Signed Impressions: Service Date/Time: Friday, December 30, 2016 16:17 - CONCLUSION: Slight bibasilar linear atelectasis. Alana Oliveira MD CT Angiography 12/30/16 0000 Signed Impressions: Service Date/Time: Friday, December 30, 2016 21:01 - CONCLUSION: 1. There is no evidence for PE for technique. 2. Mild left lung base atelectasis and/or infiltrate is seen not present previously. 3. There is extensive COPD with areas of scarring, however right middle lobe density appears larger and still be scar with possibly some inflammation surrounding it, repeat noncontrast chest CT or F-18 FDG PET CTis suggested in 6 months as a conservative follow up. Alana Oliveira MD PE at Discharge AAox3 lungs clear BL S1S2 RRR no edema in lower extremities Pt Condition on Discharge: Stable Discharge Disposition: Disch w/ Home Health Serv Discharge Time: > 30 minutes Discharge Instructions DIET: Follow Instructions for: Diabetic Diet Activities you can perform: Regular-No Restrictions, See Additionl Instruction Other Activity Instructions: as per PT indications out of bed with assistance only Follow up Referrals: PCP Follow-up - 1 Week with Trae Garsia MD New Medications: Blood Glucose Monitoring W/Device (Glucocom Blood Glucose Mo W/Device) 1 Kit Kit 1 KIT .ROUTE DIRECTED Blood Sugar Management #1 KIT Glucocom Test Strips (Glucocom Test Strips) 1 Jolynn Jolynn 1 EA .ROUTE DIRECTED Blood Sugar Management #1 BOX Insulin Aspart Inj (Novolog Inj) 1,000 Unit/10 Ml Vial 2-12 UNITS SQ ACHS Max dose at bedtime ( ) units; sugars less than 70,(0) units ; sugars 150-199,(2) units; sugars 200-249,(4) units; sugars 250-299,(7) units; sugars 300-349,(10) units; sugars greater than 349,(12)units Blood Sugar Management #10 Ref 0 ML Insulin Syringe/U-100/31G X 516" 1 ml (Insulin Syringe/U-100/31G X 16" 1 ml) 1 Mis Mis 1 EA .ROUTE DIRECTED Blood Sugar Management #1 Ref 0 BOX Lancets (Lancets) 1 Mis Mis 1 EA .ROUTE DIRECTED Blood Sugar Management #1 Ref 0 BOX Levofloxacin (Levofloxacin) 500 Mg Tablet 500 MG PO DAILY Infection #5 Ref 0 TAB Metformin (Metformin) 500 Mg Tab 500 MG PO BIDPC With meals Blood Sugar Management #60 Ref 0 TAB Prednisone (Prednisone) 20 Mg Tab 20 MG PO DIRECTED 40 MG twice a day x 3 days, then 20 MG daily x 3 days, then 10 MG daily x 3 days Inflammation #11 Ref 0 TAB Apixaban (Eliquis) 5 Mg Tab 5 MG PO BID Blood Clot Prevention #62 TAB Budesonide-Formoterol Inh (Symbicort Inh) 160-4.5 Mcg/Act Aero 2 PUFF INH Q12HR Shortness of Breath #1 INHALER Diltiazem (Cardizem) 30 Mg Tab 30 MG PO QID afib #120 TAB Hydrocodone-Acetaminophen (Hydrocodone-Acetaminophen) 5-325 mg Tab 1 TAB PO Q4H PRN PAIN SCALE 1 TO 10 #30 TAB Lisinopril (Lisinopril) 20 Mg Tab 20 MG PO DAILY Blood Pressure Management #31 TAB Tiotropium Inh (Spiriva Handihaler) 18 Mcg Cap 18 MCG INH DAILY Shortness of Breath #31 CAP Continued Medications: Albuterol 18 GM Inh (Ventolin Hfa 18 GM Inh) 90 Mcg/Act Aer 2 PUFF INH Q4-6H PRN SHORTNESS OF BREATH #1 Ref 0 INHALER Allopurinol (Allopurinol) 100 Mg Tab 100 MG PO BID Gout #30 Ref 0 TAB Epinephrine Inj (Epinephrine Inj) 0.15 Mg/0.3 Ml Inj 0.3 MG IM DIRECTED PRN ALLERGIC REACTION #1 Ref 0 INJECTION Famotidine (Famotidine) 20 Mg Tab 20 MG PO BID #14 Ref 0 TAB Ipratropium-Albuterol Neb (Duoneb) 0.5-2.5 Mg/3 Ml Neb 1 NEBULE INH Q4HR NEB PRN SHORTNESS OF BREATH #180 Ref 0 NEBULE Zolpidem (Zolpidem) 10 Mg Tab 10 MG PO HS PRN INSOMNIA Ref 0 TAB Jimenes Baltazar,Cale MD Jan 04, 2017 16:00
== END 2017-01-04 16:29 | disposition home health service (06) | DRG 871 ==
LOC: NEPC 15:30 → NEDA 17:48 → HCIN 21:56 → N04A 01-03 19:35
PROVIDERS: ADMIT Hospitalist; ATTEND Hospitalist
DX: A41.9 Sepsis, unspecified organism (principal); J18.9 Pneumonia, unspecified organism; N17.9 Acute kidney failure, unspecified; I48.0 Paroxysmal atrial fibrillation; J44.0 Chronic obstructive pulmonary disease with (acute) lower respiratory infection; E11.65 Type 2 diabetes mellitus with hyperglycemia; I48.92 Unspecified atrial flutter; J44.1 Chronic obstructive pulmonary disease with (acute) exacerbation; J98.11 Atelectasis; I10 Essential (primary) hypertension; Y95 Nosocomial condition; T38.0X5A Adverse effect of glucocorticoids and synthetic analogues, initial encounter; D64.9 Anemia, unspecified; K21.9 Gastro-esophageal reflux disease without esophagitis; K59.00 Constipation, unspecified; M10.9 Gout, unspecified; M19.031 Primary osteoarthritis, right wrist; R65.20 Severe sepsis without septic shock; Z79.899 Other long term (current) drug therapy; Z87.01 Personal history of pneumonia (recurrent); Z87.891 Personal history of nicotine dependence
CPT/HCPCS: 71010; 71275; 78452; 80048; 80053; 80061; 80202; 82272; 82550; 82728; 82948; 83036; 83540; 83550; 83605; 83735; 83880; 84443; 84484; 85025; 85027; 85610; 85730; 87040; 87070; 87077; 87186; 87205; 87493; 93005; 93017; 93306; 94620; 94640; 94664; 96361; 96365; 96375; A9502; J0153; J0456; J0692; J1650; J1815; J2785; J2920; J2930; J3370; J7030; J7050; J7512; J7613; Q9967

== ENCOUNTER 2017-02-10 17:38 | Inpatient (IN) | payer OTHER, MEDICARE ==
[~2017-02-10] VITALS: Ht 170.2 cm; Wt 71.2 kg
[~2017-02-10 17:38] MED LIST changes: -ALBU8I INH; +APIX5TAB PO; -BENA25TA3 PO; +DILT31TA PO; -DUONI NEB; +GLUCKIT15; +GLUCTES12; +HYDR-3516 PO; +INSU1MIS15; +IPRASOL INH; +LANCETS1 MI1; +LEVO500T8 PO; +LISI-515 PO; -LISI20 PO; -MEDR4PAK PO; +METF500T PO; +NOVOLOGP2 SQ; -PANT20 PO; -PERM5CRE11 TOPICAL; +PRED20 PO; -REQU5TAB PO; +SPIRCAP INH; +SYMB160A INH; +VENTAER INH
[2017-02-10 17:42] VITALS: BP 132/63; PULSE 84; RESP 28; TEMP 99.6; O2SAT 87
[2017-02-10 17:49] VITALS: BP 125/58; PULSE 74; RESP 26; TEMP 99.8; O2SAT 96
[2017-02-10 18:15] VITALS: RESP 26; O2SAT 95
[2017-02-10] MEDS ORDERED: SODIUM CHLORIDE 0.9% FLUSH 10 ML FLUSH IVF PRN (18:15)
[2017-02-10] MEDS ORDERED: methylPREDNISolone SOD SUCC 125 MG/2 ML VIAL IVP ONE (18:15)
[2017-02-10] MEDS ORDERED: RESP: ALBUTEROL 2.5 MG/IPRATROPIUM 0.5 MG NEB (SCH) INH ONE (18:15)
[2017-02-10 18:26] LABS: BLOOD GAS BASE EXCESS 0.7 mmol/L (-2-2); BLOOD GAS CARBOXYHEMOGLOBIN 2.6 % (0-4); BLOOD GAS HCO3 24 mmol/L (22-26); BLOOD GAS METHEMOGLOBIN 0.7 % (0-2); BLOOD GAS O2 HGB SATURATION 93 % (90-100); BLOOD GAS OXYGEN CONTENT 11.4 Vol % (12.0-20.0); BLOOD GAS PCO2 36 mmHg (38-42); BLOOD GAS PO2 76 mmHG (61-120); BLOOD GAS TOTAL HGB 8.6 G/DL (12.0-16.0); CRITICAL VALUE NO; OXYGEN DEVICE NASAL CANNULA; TEMP CORR TO 98.6
[2017-02-10 18:27] LABS: LITER FLOW 3 L/M
[2017-02-10 18:28] LABS: DRAW SITE RT RADIAL; NUMBER OF ARTERIAL PUNCTURES 1; STAT YES; ULNAR PULSE PRESENT
--- NOTE | 2017-02-10 18:36 | RADRPT ---
EXAM DATE/TIME: 02/10/2017 18:20 [place] COMPARISON: No previous studies available for comparison. INDICATIONS : Chest pain. MEDICAL HISTORY : None. SURGICAL HISTORY : None. ENCOUNTER: Initial ACUITY: 1 day PAIN SCORE: 0/10 LOCATION: Bilateral chest FINDINGS: Upper lobe predominant emphysema and basilar predominant mild, chronic interstitial opacities are see n. No acute infiltrate. No pleural effusion or pneumothorax. Heart size stable, within normal limits. CONCLUSION: Fibroemphysematous changes. No evidence of acute cardiopulmonary disease. Trae Voss MD on February 10, 2017 at 18:33 Board Certified Radiologist. This report was verified electronically.
[2017-02-10 18:51] LABS: AUTOMATED NEUTROPHIL # 4.1 TH/MM3 (1.8-7.7); BASOPHIL # 0.1 TH/MM3 (0-0.2); BASOPHIL % 0.8 % (0.0-2.0); EOSINOPHIL # 0.1 TH/MM3 (0-0.4); EOSINOPHIL % 2.1 % (0.0-4.0); HEMATOCRIT 26.6 % (35.0-46.0); HEMO FLAGS DIFF FINAL; LYMPH % 22.9 % (9.0-44.0); LYMPHOCYTE # 1.5 TH/MM3 (1.0-4.8); MEAN CELL VOLUME 93.4 FL (80.0-100.0); MEAN CORPUSCULAR HGB CONC 34.2 % (32.0-36.0); MONO % 10.2 % (0.0-8.0); PLATELET COUNT 302 TH/MM3 (150-450); RED BLOOD COUNT 2.85 MIL/MM3 (4.00-5.30); RED CELL DISTRIBUTION WIDTH 15.7 % (11.6-17.2); WHITE BLOOD COUNT 6.4 TH/MM3 (4.0-11.0)
--- NOTE | 2017-02-10 19:02 | PD ---
HPI Chief Complaint: Respiratory Distress Time Seen by Provider: 18:56 Travel History International Travel<30 days: No Contact w/Intl Traveler<30days: No Traveled to known affect area: No History of Present Illness HPI 71-year-old female that presents to the ED via apparently called for evaluation of shortness of breath. Patient has a chronic history of COPD and has been seen here before for similar. Per patient for sedation been more short of breath. She reports that she also has some right-sided chest pain. Per patient she was seen at a hospital in [place] where she was for evaluation of similar and she was told that her CT was abnormal. shows me the CT scan which showed COPD changes with possible tumor and the radiologist recommended follow-up CT versus PET scan. Patient reports that there were also told that she could not use the inhalers because it will affect her heart. She does have a history of A. fib. Per patient she has the chest discomfort on the right side which is 4 out of 10. Per patient feels like a pressure. Patient feels very short of breath even with walking. Per patient she uses oxygen on occasion at home but states that even with the oxygen she is not able to have improvement. She denies any injuries. She denies any fevers chills or sweats. She was actually recently admitted at the end of December for similar and she had a PET scan that showed a nodule but no PE. She was in the hospital for couple of days. She also had sepsis at the time. PFSH Past Medical History Hx Anticoagulant Therapy: Yes (ELIQUIS) Arthritis: Yes (RIGHT WRIST) Asthma: Yes Autoimmune Disease: No Blood Disorders: No Anxiety: Yes (when in the hospital/ sick ) Depression: No Heart Rhythm Problems: Yes Cancer: No Cardiac Catheterization: No Cardiovascular Problems: Yes High Cholesterol: No Chemotherapy: No Chest Pain: Yes Congestive Heart Failure: No COPD: Yes Coronary Artery Disease: No Diabetes: Yes Patient Takes Glucophage: No Diminished Hearing: No Endocrine: Yes Gastrointestinal Disorders: Yes GERD: Yes Gout: Yes Genitourinary: No Hypertension: Yes Immune Disorder: No Musculoskeletal: Yes Neurologic: Yes Psychiatric: Yes Reproductive: No Respiratory: Yes (COPD) Immunizations Current: No Migraines: Yes Myocardial Infarction: No Radiation Therapy: No Sleep Apnea: No Thyroid Disease: No ?: Not Menopausal: Yes : 3 Para: 2 Miscarriage: 1 Past Surgical History Coronary Artery Bypass Graft: No Thoracic Surgery: No Other Surgery: Yes (foot surgery) Social History Alcohol Use: No (pt denies) Tobacco Use: No (quit in 2008) Substance Use: No Allergies-Medications (Allergen,Severity, Reaction): Coded Allergies: morphine (Unverified Allergy, Severe, N&V, 02/10/17) penicillin G (Unverified Allergy, Mild, HIVES, 02/10/17) "black hairy tongue" shellfish derived (Unverified Adverse Reaction, Intermediate, swelling, ) Reported Meds & Prescriptions Reported Meds & Active Scripts Active Glucocom Test Strips (Blood Glucose Test Strips) 1 Jolynn Jolynn 1 Ea .ROUTE DIRECTED Lancets 1 Mis Mis 1 Ea .ROUTE DIRECTED Insulin Syringe/U-100/31G X 5/16" 1 ml 1 Mis Mis 1 Ea .ROUTE DIRECTED Glucocom Blood Glucose Mo W/Device (Device) 1 Kit Kit 1 Kit .ROUTE DIRECTED Novolog Inj (Insulin Aspart) 1,000 Unit/10 Ml Vial 2-12 Units SQ ACHS Max dose at bedtime ( ) units; sugars less than 70,(0) units; sugars 150-199,(2) units; sugars 200-249,(4) units; sugars 250-299,(7) units; sugars 300-349,(10) units; sugars greater than 349,(12)units Metformin (Metformin HCl) 500 Mg Tab 500 Mg PO BIDPC With meals Spiriva Handihaler (Tiotropium Inh) 18 Mcg Cap 18 Mcg INH DAILY Hydrocodone-Acetaminophen 5-325 mg Tab 1 Tab PO Q4H PRN Cardizem (Diltiazem HCl) 30 Mg Tab 30 Mg PO QID Eliquis (Apixaban) 5 Mg Tab 5 Mg PO BID Epinephrine Inj (Epinephrine) 0.15 Mg/0.3 Ml Inj 0.3 Mg IM DIRECTED PRN Famotidine 20 Mg Tab 20 Mg PO BID Reported Allopurinol 100 Mg Tab 100 Mg PO BID Duoneb (Ipratropium-Albuterol Neb) 0.5-2.5 Mg/3 Ml Neb 1 Nebule INH Q4HR NEB PRN Zolpidem (Zolpidem Tartrate) 10 Mg Tab 10 Mg PO HS PRN Review of Systems Except as stated in HPI: all other systems reviewed are Neg Physical Exam Narrative GENERAL: SKIN: Warm and dry. HEAD: Atraumatic. Normocephalic. EYES: Pupils equal and round. No scleral icterus. No injection or drainage. ENT: No nasal bleeding or discharge. Mucous membranes pink and moist. Tongue is midline. No uvula deviation. NECK: Trachea midline. No JVD. CARDIOVASCULAR: Regular rate and rhythm. No murmurs, S3, S4. Chest pain is not reproducible with touch. RESPIRATORY: No accessory muscle use. Clear to auscultation. Breath sounds equal bilaterally. GASTROINTESTINAL: Abdomen soft, non-tender, nondistended. Hepatic and splenic margins not palpable. MUSCULOSKELETAL: Extremities without clubbing, cyanosis, or edema. No obvious deformities. Full range of motion of the upper and lower extremities bilaterally. 2+ pulses bilaterally. NEUROLOGICAL: Awake and alert. No obvious cranial nerve deficits. Motor grossly within normal limits. Five out of 5 muscle strength in the arms and legs. Normal speech. PSYCHIATRIC: Appropriate mood and affect; insight and judgment normal. Data Data Last Documented VS Vital Signs Date Time Temp Pulse Resp B/P (MAP) Pulse Ox O2 Delivery O2 Flow Rate FiO2 02/10/17 18:15 26 95 Nasal Cannula 3.00 02/10/17 17:49 99.8 74 Orders Orders Electrocardiogram (02/10/17 18:07) Arterial Blood Gas (Abg) (02/10/17 18:07) Complete Blood Count With Diff (02/10/17 18:07) Comprehensive Metabolic Panel (02/10/17 18:07) Chest, Single Ap (02/10/17 18:07) Ecg Monitoring (02/10/17 18:07) Iv Access Insert/Monitor (02/10/17 18:07) Oximetry (02/10/17 18:07) Oxygen Administration (02/10/17 18:07) Methylprednisolone So Succ Inj (Solumedr (02/10/17 18:15) Albuterol-Ipratropium Neb (Duoneb Neb) (02/10/17 18:15) Sodium Chloride 0.9% Flush (Ns Flush) (02/10/17 18:15) Troponin I (02/10/17 18:07) Albuterol-Ipratropium Neb (Duoneb Neb) (02/10/17 19:45) Admit Order (Ed Use Only) (02/10/17 20:06) Labs Laboratory Tests Test 02/10/17 18:18 02/10/17 18:30 Blood Gas Puncture Site RT RADIAL Blood Gas Patient Temperature 98.6 Blood Gas HCO3 24 mmol/L Blood Gas Base Excess 0.7 mmol/L Blood Gas Oxygen Saturation 93 % Arterial Blood pH 7.44 Arterial Blood Partial Pressure CO2 36 mmHg Arterial Blood Partial Pressure O2 76 mmHG Arterial Blood Oxygen Content 11.4 Vol % Arterial Blood Carboxyhemoglobin 2.6 % Arterial Blood Methemoglobin 0.7 % Blood Gas Hemoglobin 8.6 G/DL Oxygen Delivery Device NASAL CANNULA Blood Gas Liter Flow 3 L/M White Blood Count 6.4 TH/MM3 Red Blood Count 2.85 MIL/MM3 Hemoglobin 9.1 GM/DL Hematocrit 26.6 % Mean Corpuscular Volume 93.4 FL Mean Corpuscular Hemoglobin 32.0 PG Mean Corpuscular Hemoglobin Concent 34.2 % Red Cell Distribution Width 15.7 % Platelet Count 302 TH/MM3 Mean Platelet Volume 7.6 FL Neutrophils (%) (Auto) 64.0 % Lymphocytes (%) (Auto) 22.9 % Monocytes (%) (Auto) 10.2 % Eosinophils (%) (Auto) 2.1 % Basophils (%) (Auto) 0.8 % Neutrophils # (Auto) 4.1 TH/MM3 Lymphocytes # (Auto) 1.5 TH/MM3 Monocytes # (Auto) 0.7 TH/MM3 Eosinophils # (Auto) 0.1 TH/MM3 Basophils # (Auto) 0.1 TH/MM3 CBC Comment DIFF FINAL Differential Comment Blood Urea Nitrogen 7 MG/DL Creatinine 0.91 MG/DL Random Glucose 122 MG/DL Total Protein 6.6 GM/DL Albumin 2.9 GM/DL Calcium Level 8.5 MG/DL Alkaline Phosphatase 67 U/L Aspartate Amino Transf (AST/SGOT) 16 U/L Alanine Aminotransferase (ALT/SGPT) 28 U/L Total Bilirubin 0.8 MG/DL Sodium Level 139 MEQ/L Potassium Level 4.1 MEQ/L Chloride Level 104 MEQ/L Carbon Dioxide Level 25.5 MEQ/L Anion Gap 10 MEQ/L Estimat Glomerular Filtration Rate 61 ML/MIN Troponin I LESS THAN 0.02 NG/ML MDM Medical Decision Making Medical Screen Exam Complete: Yes Emergency Medical Condition: Yes Medical Record Reviewed: Yes Interpretation(s) CBC & BMP Diagram 02/10/17 18:30 Last Impressions Chest X-Ray 02/10/17 1807 Signed Impressions: Service Date/Time: Friday, February 10, 2017 18:20 - CONCLUSION: Fibroemphysematous changes. No evidence of acute cardiopulmonary disease. Trae Voss MD Differential Diagnosis Chest pain versus a typical chest pain versus COPD exacerbation versus A. fib versus ACS versus pneumonia Narrative Course 71-year-old female that presents to the ED for evaluation of chest pain and shortness of breath. Patient was properly examined and was found to have signs and symptoms consistent with appears to be COPD exacerbation at this time. Labs and imaging will be ordered. Case was discussed with my attending Dr. Roach who evaluated the patient and recommends meds as well as likely admission. Patient had a low O2 in the 80s without oxygen her O2 goes down. She is very symptomatic with just ambulating. Talking to me calluses a lot of shortness of breath. At this time patient was given breathing treatments and Solu-Medrol. Labs and imaging showed no sign of acute disease. Patient still feels very short of breath. We are oxygen patient's O2 goes down. She cannot ambulate without oxygen and symptoms. Case was discussed in my attending who recommends admission for at least observation for the COPD. Patient will likely benefit from having a metal numerical tool programmer. Patient does state that he has an appointment with Dr. Cee but has not been able to see him yet. Dr Childers agrees with admission. Diagnosis Primary Impression: COPD (chronic obstructive pulmonary disease) Qualified Codes: J44.1 - Chronic obstructive pulmonary disease with (acute) exacerbation Admitting Information Admitting Physician Requests: Observation Ravi Barboza Feb 10, 2017 19:02
[2017-02-10 19:07] LABS: ANION GAP 10 MEQ/L (5-15); AST (GOT) 16 U/L (15-37); BICARBONATE 25.5 MEQ/L (21.0-32.0); BLOOD UREA NITROGEN 7 MG/DL (7-18); CHLORIDE 104 MEQ/L (98-107); GLOMERULAR FILTRATION RATE 61 ML/MIN (>89); POTASSIUM 4.1 MEQ/L (3.5-5.1); SODIUM (NA) 139 MEQ/L (136-145)
[2017-02-10 19:12] LABS: ALKALINE PHOSPHATASE 67 U/L (45-117); ALT (GPT) 28 U/L (10-53); TOTAL BILIRUBIN ADULT 0.8 MG/DL (0.2-1.0)
[2017-02-10] MEDS ORDERED: ACETAMINOPHEN/HYDROcodone 325 MG/5 MG TAB PO PRN (20:15)
[2017-02-10] MEDS ORDERED: SENNOSIDES 8.6 MG TAB PO PRN (20:15)
[2017-02-10] MEDS ORDERED: ACETAMINOPHEN 325 MG TAB PO PRN (20:15)
[2017-02-10] MEDS ORDERED: SODIUM CHLORIDE 0.9% FLUSH 10 ML FLUSH IV FLUSH PRN (20:15)
[2017-02-10] MEDS ORDERED: DEXTROSE 50% IN WATER 50 ML VIAL(D50) IV PRN (20:15)
[2017-02-10] MEDS ORDERED: BISACODYL 10 MG SUPP RECTAL PRN (20:15)
[2017-02-10] MEDS ORDERED: GLUCAGON 1 MG/ML VIAL OTHER PRN (20:15)
[2017-02-10] MEDS ORDERED: ONDANSETRON HCL 4 MG/2 ML VIAL IVP PRN (20:15)
[2017-02-10] MEDS ORDERED: LACTULOSE SYRUP 20 GM/30 ML CUP PO PRN (20:15)
--- NOTE | 2017-02-10 20:22 | HHI.HP ---
[facility] Trae Garsia MD Admission Diagnosis COPD exacerbation with hypoxia Diagnoses: (1) COPD (chronic obstructive pulmonary disease) Diagnosis: Principal (2) Hypoxia Diagnosis: Principal (3) Pulmonary lesion Diagnosis: Principal (4) A-fib Diagnosis: Principal (5) Anemia Diagnosis: Principal (6) DM (diabetes mellitus) Diagnosis: Principal Travel History International Travel<30 Days: No Contact w/Intl Traveler <30 Da: No Traveled to Known Affected Are: No History of Present Illness This is a 71-year-old female with a PMH of HTN, A. fib on Eliquis, Hyperlipidemia and COPD who presented to the ER w/ complaints of SOB starting earlier today. Denies fever, chills or cough. States she was in [place] on vacation and had similar symptoms for which she was hospitalized, CT Chest w/o contrast 01/21/17 w/ extensive emphysematous changes, multiple lung lesions in right and left lung, possibly mucus plugging or underlying malignancy with recommendation for PET/CT for follow-up. Previous admit here 12/30-01/04 for COPD /Afib w/ CTA 12/30/16 showing RML fullness w/ recommendation for PET/CT in 6mo. Has first appt w/ Dr. Patel on Saturday. On arrival, BP 132/63, HR 84, O2 sat 87 % on RA, Temp 99.6. Currently O2 sat 95% on 3L NC. CBC essentially baseline. GFR 61. Troponin negative. CXR with fibro-emphysematous changes, no evidence of cardiopulmonary disease. S/p Solu-Medrol and DuoNeb in ER w/ some improvement. Review of Systems Except as stated in HPI: all other systems reviewed are Neg ROS: 14 point review of systems otherwise negative. Past Family Social History Past Medical History PMH: HTN, A. fib on Eliquis, Hyperlipidemia and COPD Past Surgical History PAST SURGICAL HISTORY: Foot Surgery Allergies: Coded Allergies: morphine (Unverified Allergy, Severe, N&V, 02/10/17) penicillin G (Unverified Allergy, Mild, HIVES, 02/10/17) "black hairy tongue" shellfish derived (Unverified Adverse Reaction, Intermediate, swelling, ) Family History PAST FAMILY HISTORY: Reviewed. No h/o DM or CAD Social History PAST SOCIAL HISTORY: Negative for alcohol or drugs. Quit tobacco 2008. Physical Exam Vital Signs Vital Signs Date Time Temp Pulse Resp B/P (MAP) Pulse Ox O2 Delivery O2 Flow Rate FiO2 02/10/17 18:15 26 95 Nasal Cannula 3.00 02/10/17 18:15 95 Nasal Cannula 3.00 02/10/17 17:55 96 Nasal Cannula 3.00 02/10/17 17:49 99.8 74 26 125/58 (80) 96 02/10/17 17:42 99.6 84 28 132/63 (86) 87 Room Air Physical Exam PE: GENERAL: Middle-aged white female in no acute distress. HEENT: PERRLA, EOMI. No scleral icterus or conjunctival pallor. No lid lag or facial droop. CARDIOVASCULAR: Regular rate and rhythm. No obvious murmurs to auscultation. No chest tenderness to palpation. RESPIRATORY: No obvious rhonchi or wheezing. Clear to auscultation. Breath sounds equal bilaterally. GASTROINTESTINAL: Abdomen soft, non-tender, nondistended. BS normal. MUSCULOSKELETAL: Extremities without clubbing, cyanosis, or edema. No obvious deformities. NEUROLOGICAL: Awake, alert and oriented x4. No focal neurologic deficits. Moving both upper and lower extremities spontaneously. Laboratory Laboratory Tests Test 02/10/17 18:18 02/10/17 18:30 Blood Gas Puncture Site RT RADIAL Blood Gas Patient Temperature 98.6 Blood Gas HCO3 24 Blood Gas Base Excess 0.7 Blood Gas Oxygen Saturation 93 Arterial Blood pH 7.44 Arterial Blood Partial Pressure CO2 36 Arterial Blood Partial Pressure O2 76 Arterial Blood Oxygen Content 11.4 Arterial Blood Carboxyhemoglobin 2.6 Arterial Blood Methemoglobin 0.7 Blood Gas Hemoglobin 8.6 Oxygen Delivery Device NASAL CANNULA Blood Gas Liter Flow 3 White Blood Count 6.4 Red Blood Count 2.85 Hemoglobin 9.1 Hematocrit 26.6 Mean Corpuscular Volume 93.4 Mean Corpuscular Hemoglobin 32.0 Mean Corpuscular Hemoglobin Concent 34.2 Red Cell Distribution Width 15.7 Platelet Count 302 Mean Platelet Volume 7.6 Neutrophils (%) (Auto) 64.0 Lymphocytes (%) (Auto) 22.9 Monocytes (%) (Auto) 10.2 Eosinophils (%) (Auto) 2.1 Basophils (%) (Auto) 0.8 Neutrophils # (Auto) 4.1 Lymphocytes # (Auto) 1.5 Monocytes # (Auto) 0.7 Eosinophils # (Auto) 0.1 Basophils # (Auto) 0.1 CBC Comment DIFF FINAL Differential Comment Blood Urea Nitrogen 7 Creatinine 0.91 Random Glucose 122 Total Protein 6.6 Albumin 2.9 Calcium Level 8.5 Alkaline Phosphatase 67 Aspartate Amino Transf (AST/SGOT) 16 Alanine Aminotransferase (ALT/SGPT) 28 Total Bilirubin 0.8 Sodium Level 139 Potassium Level 4.1 Chloride Level 104 Carbon Dioxide Level 25.5 Anion Gap 10 Estimat Glomerular Filtration Rate 61 Troponin I LESS THAN 0.02 Result Diagram: 02/10/17182902/10/171829 Caprini VTE Risk Assessment Caprini VTE Risk Assessment: Mod/High Risk (score >= 2) Caprini Risk Assessment Model Point Value = 1 Point Value = 2 Point Value = 3 Point Value = 5 Age 41-60 Minor surgery BMI > 25 kg/m2 Swollen legs Varicose veins or History of unexplained or recurrent spontaneous Oral contraceptives or hormone replacement Sepsis (< 1 month) Serious lung disease, including pneumonia (< 1 month) Abnormal pulmonary function Acute myocardial infarction Congestive heart failure (< 1 month) History of inflammatory bowel disease Medical patient at bed rest Age 61-74 Arthroscopic surgery Major open surgery (> 45 min) Laparoscopic surgery (> 45 min) Malignancy Confined to bed (> 72 hours) Immobilizing plaster cast Central venous access Age >= 75 History of VTE Family history of VTE Factor V Leiden Prothrombin [id number] Lupus anticoagulant Anticardiolipin antibodies Elevated serum homocysteine Heparin-induced thrombocytopenia Other congenital or acquired thrombophilia Stroke (< 1 month) Elective arthroplasty Hip, pelvis, or leg fracture Acute spinal cord injury (< 1 month) Prophylaxis Regimen Total Risk Factor Score Risk Level Prophylaxis Regimen 0-1 Low Early ambulation 2 Moderate Order ONE of the following: *Sequential Compression Device (SCD) *Heparin 5000 units SQ BID 3-4 Higher Order ONE of the following medications: *Heparin 5000 units SQ TID *Enoxaparin/Lovenox 40 mg SQ daily (WT < 150 kg, CrCl > 30 mL/min) *Enoxaparin/Lovenox 30 mg SQ daily (WT < 150 kg, CrCl > 10-29 mL/min) *Enoxaparin/Lovenox 30 mg SQ BID (WT < 150 kg, CrCl > 30 mL/min) AND/OR *Sequential Compression Device (SCD) 5 or more Highest Order ONE of the following medications: *Heparin 5000 units SQ TID (Preferred with Epidurals) *Enoxaparin/Lovenox 40 mg SQ daily (WT < 150 kg, CrCl > 30 mL/min) *Enoxaparin/Lovenox 30 mg SQ daily (WT < 150 kg, CrCl > 10-29 mL/min) *Enoxaparin/Lovenox 30 mg SQ BID (WT < 150 kg, CrCl > 30 mL/min) AND *Sequential Compression Device (SCD) Assessment and Plan Problem List: (1) COPD (chronic obstructive pulmonary disease) ICD Code: J44.9 - COPD (chronic obstructive pulmonary disease) Status: Chronic (2) Hypoxia ICD Code: R09.02 - Hypoxemia (3) Pulmonary lesion ICD Code: R91.1 - Solitary pulmonary nodule (4) A-fib ICD Code: I48.91 - Unspecified atrial fibrillation (5) Anemia ICD Code: D64.9 - Anemia, unspecified Status: Acute (6) DM (diabetes mellitus) ICD Code: E11.9 - Type 2 diabetes mellitus without complications Assessment and Plan A/P: 1. COPD: Chronic Respiratory Failure w/ Acute Exacerbation, states was told to stop inhalers during recent hospitalization in [place] secondary to A-fib. CXR w / fibro-emphysematous changes. Solu-Medrol, DuoNeb, Mucinex, Symbicort, resume home Singulair. Has upcoming appt w/ Dr. Patel, will consult for further evaluation. 2. Hypoxia: O2 sat 87% on RA upon arrival, not on home O2, currently O2 sat 95 % on 3L NC, will monitor. 3. Lung Lesion: Recent admit in [place] for COPD/Afib, CT Chest w/o contrast w/ extensive emphysematous changes and multiple lung lesions bilaterally, possibly mucus plugging or underlying malignancy, recommendation for PET/CT follow-up. Similar findings on CTA 12/30/16 w/ RML fullness/scarring w/ recommendation for PET/CT in 6mo. H/o tobacco, quit 2008. Will consult Dr. Patel for further eval. 4. A-fib: Chronic. Controlled. Resume home Cardizem and Eliquis 5. Anemia: Hgb 9.1, previously 10.6 on 01/04/17. No active bleeding. Will monitor. 6. DM: Sliding scale w/ Accu-Cheks. Hold Metformin in light of possible need for further imaging w/ contrast. 7. DVT Prophylaxis: Resume home Eliquis 8. Social work for d/c planning as needed. 9. Case discussed w/ ER physician at length. Physician Certification 2 Midnight Certification Type: Admission for Inpatient Services Order for Inpatient Services The services are ordered in accordance with Medicare regulations or non- Medicare payer requirements, as applicable. In the case of services not specified as inpatient-only, they are appropriately provided as inpatient services in accordance with the 2-midnight benchmark. Estimated LOS (days): 2 days is the estimated time the patient will need to remain in the hospital, assuming treatment plan goals are met and no additional complications. Post-Hospital Plan: Not yet determined Problem Qualifiers (1) COPD (chronic obstructive pulmonary disease): Qualified Codes: J44.1 - Chronic obstructive pulmonary disease with (acute) exacerbation Fanta Childers MD Feb 10, 2017 20:22
[2017-02-10 21:43] VITALS: O2SAT 98
[2017-02-10] MEDS: RESP: ALBUTEROL 2.5 MG/IPRATROPIUM 0.5 MG NEB (SCH) INH ×2 (21:43→21:44)
[2017-02-10 21:55] VITALS: BP 122/58; PULSE 79; RESP 28; O2SAT 96
[2017-02-10] MEDS: MAGNESIUM HYDROXIDE SUSP 30 ML CUP PO PRN (22:40)
[2017-02-10] MEDS: SODIUM CHLORIDE 0.9% FLUSH 10 ML FLUSH IV FLUSH SCH (22:41)
[2017-02-10] MEDS: DILTIAZEM HCL 30 MG TAB PO SCH (22:41)
[2017-02-10] MEDS: ACETAMINOPHEN/HYDROcodone 325 MG/10 MG TAB PO PRN (22:41)
[2017-02-10] MEDS: DOCUSATE SODIUM 50 MG/SENNA 8.6 MG TAB PO SCH (22:41)
[2017-02-10] MEDS: guaiFENesin E.R. 600 MG TAB PO SCH (22:41)
[2017-02-10] MEDS: APIXABAN 5 MG TABLET PO SCH (22:42)
[2017-02-10 22:45] VITALS: BP 130/61; PULSE 85; RESP 18; TEMP 97.4; O2SAT 94
[2017-02-10] MEDS: INSULIN ASPART SUPPLEMENTAL SCALE SQ SCH (23:00)
[2017-02-11 00:31] VITALS: BP 120/60; PULSE 81; RESP 18; TEMP 96.7; O2SAT 94
[2017-02-11] MEDS: BUDESONIDE-FORMOTEROL 160/4.5 MCG INHALER INH SCH ×3 (01:09→20:21)
[2017-02-11] MEDS: methylPREDNISolone SOD SUCC 40 MG/1 ML VIAL IV PUSH SCH ×4 (01:14→15:37)
[2017-02-11] MEDS: INSULIN ASPART SUPPLEMENTAL SCALE SQ SCH ×4 (06:45→20:28)
[2017-02-11 07:39] LABS: BASOPHIL % 0.4 % (0.0-2.0); EOSINOPHIL % 0.1 % (0.0-4.0); HEMATOCRIT 25.2 % (35.0-46.0); HEMO FLAGS DIFF FINAL; LYMPH % 14.3 % (9.0-44.0); LYMPHOCYTE # 0.7 TH/MM3 (1.0-4.8); MEAN CELL VOLUME 93.5 FL (80.0-100.0); MEAN CORPUSCULAR HEMOGLOBIN 31.9 PG (27.0-34.0); MEAN CORPUSCULAR HGB CONC 34.1 % (32.0-36.0); MONO % 1.2 % (0.0-8.0); PLATELET COUNT 299 TH/MM3 (150-450); RED BLOOD COUNT 2.69 MIL/MM3 (4.00-5.30); RED CELL DISTRIBUTION WIDTH 15.8 % (11.6-17.2); WHITE BLOOD COUNT 4.7 TH/MM3 (4.0-11.0)
[2017-02-11] MEDS: guaiFENesin E.R. 600 MG TAB PO SCH ×2 (07:58→20:18)
[2017-02-11] MEDS: DILTIAZEM HCL 30 MG TAB PO SCH ×4 (07:59→20:18)
[2017-02-11] MEDS: APIXABAN 5 MG TABLET PO SCH ×2 (07:59→20:18)
[2017-02-11 08:00] VITALS: BP 110/53; PULSE 60; RESP 20; TEMP 96.9; O2SAT 96
[2017-02-11] MEDS: ACETAMINOPHEN/HYDROcodone 325 MG/10 MG TAB PO PRN ×2 (08:00→17:21)
[2017-02-11] MEDS: TIOTROPIUM BROMIDE 18 MCG INH INH SCH (08:00)
[2017-02-11] MEDS: DOCUSATE SODIUM 50 MG/SENNA 8.6 MG TAB PO SCH ×2 (08:00→20:18)
[2017-02-11] MEDS: SODIUM CHLORIDE 0.9% FLUSH 10 ML FLUSH IV FLUSH SCH ×2 (08:01→20:17)
[2017-02-11 08:13] LABS: ALKALINE PHOSPHATASE 65 U/L (45-117); ALT (GPT) 28 U/L (10-53); ANION GAP 13 MEQ/L (5-15); AST (GOT) 10 U/L (15-37); BICARBONATE 22.8 MEQ/L (21.0-32.0); BLOOD UREA NITROGEN 11 MG/DL (7-18); CHLORIDE 102 MEQ/L (98-107); GLOMERULAR FILTRATION RATE 47 ML/MIN (>89); POTASSIUM 4.7 MEQ/L (3.5-5.1); SODIUM (NA) 138 MEQ/L (136-145); TOTAL BILIRUBIN ADULT 0.6 MG/DL (0.2-1.0)
[2017-02-11] MEDS ORDERED: ENOXAPARIN SODIUM 40 MG/0.4 ML SYRINGE SQ SCH (09:00)
[2017-02-11 11:04] VITALS: BP 117/60; PULSE 70; RESP 17; TEMP 97.5; O2SAT 98
--- NOTE | 2017-02-11 11:15 | MB ---
cc: JORGE PATEL M.D. DATE OF CONSULTATION: 02/11/2017 REASON FOR CONSULTATION COPD exacerbation. Abnormal CT of the chest. HISTORY OF PRESENT ILLNESS The patient is a 71-year-old female admitted with increasing shortness of breath, cough, expectoration of a small amount of whitish sputum. Stated she did have a temperature elevation while at home. She was recently in [place] and was hospitalized. She did have a CT scan of the chest in [place] 01/21/2017 with severe COPD and right and left lung nodularities likely mucous plugging; malignancy a possibility. The patient is alert and oriented at present, shortness of breath somewhat improved, however, in no acute distress. PAST MEDICAL HISTORY 1. Atrial fibrillation; she is on Eliquis. 2. Hypertension. 3. Hyperlipidemia. 4. COPD as mentioned above. 5. Foot surgery in the past. ALLERGIES 1. PENICILLIN. 2. MORPHINE. 3. SHELLFISH. FAMILY HISTORY Noncontributory. REVIEW OF SYSTEMS A 12-point review of systems as per HPI and past history, otherwise negative. SOCIAL HISTORY A long heavy smoking history over [id number], stopped in 2008. Does not drink any alcohol. Does not use drugs. MEDICATIONS Current medications include: 1. Nebulized albuterol/ipratropium. 2. Solu-Medrol. 3. Eliquis. 4. Cardizem. 5. Zolpidem 10 mg h.s. as needed. PHYSICAL EXAMINATION VITAL SIGNS: Temperature 98, pulse 80, respirations 18, blood pressure 120/60. Oxygen saturation 94% on three liters oxygen by nasal cannula. HEENT: Unremarkable. Eyes without icterus. NECK: Without adenopathy or thyroid enlargement. Central trachea. CHEST: Few scattered rhonchi bilaterally. CARDIAC: PMI distant. S1, S2 audible. No murmur or rub. ABDOMEN: Lax. Bowel sounds audible. EXTREMITIES: No clubbing, cyanosis or edema. LABORATORY White count 4.7, hemoglobin 8.6, platelets 299,000. Sodium 138, potassium 4.7, BUN 11, creatinine 1.1. IMPRESSION 1. COPD exacerbation. 2. Respiratory failure on oxygen therapy. 3. Abnormal CT of the chest with bilateral lung densities, needs follow-up. 4. Atrial fibrillation. PLAN The patient will be maintained on oxygen therapy as needed, bronchodilators continued. Activity will be increased. Once stable will change to oral therapy and follow as an outpatient. A PET/CT will be obtained at that time. I do thank you for asking me to partake in Mrs. Bah's care. Jorge Patel MD WWW/EZE /9:13 AM /10:49 AM
--- NOTE | 2017-02-11 13:34 | HHI.PR ---
Subjective Remarks Follow up COPD exacerbation. Patient states that her breathing is a little better today, but she is still short of breath. Denies chest pain. Does have some upper back pain on the right. She has had nausea, but no vomiting. Objective Vitals Vital Signs Date Time Temp Pulse Resp B/P (MAP) Pulse Ox O2 Delivery O2 Flow Rate FiO2 02/11/17 11:04 97.5 70 17 117/60 (79) 98 02/11/17 08:00 96.9 60 20 110/53 (72) 96 02/11/17 07:10 Nasal Cannula 3.00 02/11/17 03:33 Nasal Cannula 3.00 02/11/17 00:31 96.7 81 18 120/60 (80) 94 02/10/17 23:41 18 02/10/17 22:45 97.4 85 18 130/61 (84) 94 02/10/17 21:56 02/10/17 21:55 79 28 122/58 (79) 96 Nasal Cannula 3.00 02/10/17 21:43 98 Nasal Cannula 2.00 02/10/17 18:15 26 95 Nasal Cannula 3.00 02/10/17 18:15 95 Nasal Cannula 3.00 02/10/17 17:55 96 Nasal Cannula 3.00 02/10/17 17:49 99.8 74 26 125/58 (80) 96 02/10/17 17:42 99.6 84 28 132/63 (86) 87 Room Air I/O 02/10/17 02/10/17 02/10/17 02/11/17 02/11/17 02/11/17 06:59 14:59 22:59 06:59 14:59 22:59 Intake Total 240 ml 360 ml Balance 240 ml 360 ml Intake Oral 240 ml 360 ml # Voids 1 2 # Bowel Movements 0 0 Result Diagram: 02/11/17 0706 02/11/17705 Imaging Last Impressions Chest X-Ray 02/10/171806 Signed Impressions: Service Date/Time: Friday, February 10, 2017 18:20 - CONCLUSION: Fibroemphysematous changes. No evidence of acute cardiopulmonary disease. Trae Voss MD Objective Remarks General: No acute distress. Heart: Regular rate and rhythm. No murmur. Lungs: Poor air movement. Scattered wheeze. Breathing is nonlabored. Abdomen: Soft, nontender, nondistended. Extremities: No lower extremity edema. Psych: Alert and oriented. Procedures None Urinary Catheter: No Vascular Central Line Catheter: No A/P Problem List: (1) COPD (chronic obstructive pulmonary disease) ICD Code: J44.9 - COPD (chronic obstructive pulmonary disease) Status: Chronic (2) Hypoxia ICD Code: R09.02 - Hypoxemia (3) Pulmonary lesion ICD Code: R91.1 - Solitary pulmonary nodule (4) A-fib ICD Code: I48.91 - Unspecified atrial fibrillation (5) Anemia ICD Code: D64.9 - Anemia, unspecified Status: Acute (6) DM (diabetes mellitus) ICD Code: E11.9 - Type 2 diabetes mellitus without complications Assessment and Plan 1. COPD, chronic respiratory failure with exacerbation: Appreciate pulmonology recommendations. Continue oxygen, steroids, bronchodilators. 2. Lung lesion: Recently hospitalized in [place] and found to have multiple lung lesions bilaterally. ?underlying malignancy. Outpatient PET/CT. 3. A-fib: Chronic, rate controlled. Continue cardizem, Eliquis. 4. Anemia: H/H trending down. No apparent bleeding. Check stool hemoccult. Check iron studies. Follow H/H. 5. Diabetes mellitus: Monitor accuchecks and cover with sliding scale insulin. Metformin on hold. 6. DVT prophylaxis: Eliquis. Problem Qualifiers (1) COPD (chronic obstructive pulmonary disease): Qualified Codes: J44.1 - Chronic obstructive pulmonary disease with (acute) exacerbation Meng Yo MD Feb 11, 2017 13:34
[2017-02-11] MEDS: SODIUM CHLOR 0.9% 1000 ML INJ 1,000 ML IV SCH (13:50)
--- NOTE | 2017-02-11 15:23 | EKG ---
Date Performed: 02/10/2017 Time Performed: 17:54:01 PTAGE: 71 years EKG: Sinus rhythm MODERATE ST DEPRESSION ABNORMAL ECG Compared to PREVIOUS TRACING , diffused nonspecific ST changes remain. PREVIOUS TRACIN12/30/2016 1 7.16 DOCTOR: Giuseppe Kamara Interpretating Date/Time 02/11/2017 15:21:42
[2017-02-11] MEDS: MAGNESIUM HYDROXIDE SUSP 30 ML CUP PO PRN (15:37)
[2017-02-11 15:38] VITALS: BP 118/71; PULSE 70; RESP 18; TEMP 97.3; O2SAT 94
[2017-02-11 20:00] VITALS: BP 135/63; PULSE 68; RESP 19; TEMP 96.8; O2SAT 95
[2017-02-11] MEDS: ZOLPIDEM TARTRATE 10 MG TAB PO PRN (21:49)
[2017-02-12] VITALS (7 sets, daily range): BP systolic 116–136; BP diastolic 57–68; PULSE 62–84; RESP 16–21; TEMP 96.4–97.7; O2SAT 92–99
[2017-02-12] MEDS: methylPREDNISolone SOD SUCC 40 MG/1 ML VIAL IV PUSH SCH ×5 (00:08→23:53)
[2017-02-12] MEDS: SODIUM CHLOR 0.9% 1000 ML INJ 1,000 ML IV SCH ×3 (00:32→16:02)
[2017-02-12] MEDS ORDERED: SOD PHOSPHATE/SOD BIPHOSPHATE (ADULT) ENEMA 133ML RECTAL ONE (03:30)
[2017-02-12] MEDS: INSULIN ASPART SUPPLEMENTAL SCALE SQ SCH ×4 (07:15→21:42)
[2017-02-12] MEDS: TIOTROPIUM BROMIDE 18 MCG INH INH SCH (07:20)
[2017-02-12] MEDS: DOCUSATE SODIUM 50 MG/SENNA 8.6 MG TAB PO SCH ×2 (07:20→21:38)
[2017-02-12] MEDS: BUDESONIDE-FORMOTEROL 160/4.5 MCG INHALER INH SCH ×2 (07:20→21:38)
[2017-02-12] MEDS: DILTIAZEM HCL 30 MG TAB PO SCH ×4 (07:21→21:39)
[2017-02-12] MEDS: guaiFENesin E.R. 600 MG TAB PO SCH ×2 (07:21→21:39)
[2017-02-12] MEDS: SODIUM CHLORIDE 0.9% FLUSH 10 ML FLUSH IV FLUSH SCH ×2 (07:21→21:00)
[2017-02-12] MEDS: APIXABAN 5 MG TABLET PO SCH ×2 (07:21→21:39)
[2017-02-12 08:56] LABS: AUTOMATED NEUTROPHIL # 13.5 TH/MM3 (1.8-7.7); BASOPHIL % 0.1 % (0.0-2.0); HEMATOCRIT 25.2 % (35.0-46.0); HEMO FLAGS DIFF FINAL; LYMPH % 4.1 % (9.0-44.0); LYMPHOCYTE # 0.6 TH/MM3 (1.0-4.8); MEAN CELL VOLUME 93.7 FL (80.0-100.0); MEAN CORPUSCULAR HGB CONC 34.1 % (32.0-36.0); MONO % 4.4 % (0.0-8.0); NEUT % 91.4 % (16.0-70.0); PLATELET COUNT 337 TH/MM3 (150-450); RED BLOOD COUNT 2.69 MIL/MM3 (4.00-5.30); RED CELL DISTRIBUTION WIDTH 15.9 % (11.6-17.2); WHITE BLOOD COUNT 14.8 TH/MM3 (4.0-11.0)
[2017-02-12 09:07] LABS: ANION GAP 7 MEQ/L (5-15); BICARBONATE 28.5 MEQ/L (21.0-32.0); BLOOD UREA NITROGEN 17 MG/DL (7-18); CHLORIDE 103 MEQ/L (98-107); GLOMERULAR FILTRATION RATE 69 ML/MIN (>89); SODIUM (NA) 138 MEQ/L (136-145)
[2017-02-12 09:12] LABS: FERRITIN 652 NG/ML (8-252); TRANSFERRIN IRON PROFILE 152 MG/DL (200-360)
[2017-02-12] MEDS: ACETAMINOPHEN/HYDROcodone 325 MG/10 MG TAB PO PRN (11:02)
--- NOTE | 2017-02-12 14:09 | HHI.PR ---
Subjective Remarks Follow up COPD exacerbation. Patient feels a little better today. Dyspnea improving. No chest pain. Objective Vitals Vital Signs Date Time Temp Pulse Resp B/P (MAP) Pulse Ox O2 Delivery O2 Flow Rate FiO2 02/12/17 11:27 96.8 64 18 132/68 (89) 92 02/12/17 07:23 71 16 131/61 (84) 99 02/12/17 07:12 Room Air 02/12/17 04:00 97.7 62 20 121/58 (79) 97 02/12/17 00:00 96.4 84 21 131/58 (82) 93 02/11/17 20:31 Nasal Cannula 3.00 02/11/17 20:00 96.8 68 19 135/63 (87) 95 02/11/17 15:46 Nasal Cannula 3.00 02/11/17 15:38 97.3 70 18 118/71 (87) 94 I/O 02/11/17 02/11/17 02/11/17 02/12/17 02/12/17 02/12/17 07:00 15:00 23:00 07:00 15:00 23:00 Intake Total 360 ml 480 ml 577 ml 480 ml Balance 360 ml 480 ml 577 ml 480 ml Intake Oral 360 ml 480 ml 240 ml 480 ml IV Total 337 ml # Voids 2 2 1 2 # Bowel Movements 0 0 0 1 Result Diagram: 02/12/17 0823 02/12/17 0823 Imaging Last Impressions Chest X-Ray 02/10/17 1807 Signed Impressions: Service Date/Time: Friday, February 10, 2017 18:20 - CONCLUSION: Fibroemphysematous changes. No evidence of acute cardiopulmonary disease. Trae Voss MD Objective Remarks General: No acute distress. Heart: Regular rate and rhythm. No murmur. Lungs: Improved air movement today. Decreased wheeze. Breathing is nonlabored. Abdomen: Soft, nontender, nondistended. Extremities: No lower extremity edema. Psych: Alert and oriented. Procedures None Urinary Catheter: No Vascular Central Line Catheter: No A/P Problem List: (1) COPD (chronic obstructive pulmonary disease) ICD Code: J44.9 - COPD (chronic obstructive pulmonary disease) Status: Chronic (2) Hypoxia ICD Code: R09.02 - Hypoxemia (3) Pulmonary lesion ICD Code: R91.1 - Solitary pulmonary nodule (4) A-fib ICD Code: I48.91 - Unspecified atrial fibrillation (5) Anemia ICD Code: D64.9 - Anemia, unspecified Status: Acute (6) DM (diabetes mellitus) ICD Code: E11.9 - Type 2 diabetes mellitus without complications Assessment and Plan 1. COPD, chronic respiratory failure with exacerbation: Appreciate pulmonology recommendations. Continue oxygen, steroids, bronchodilators. Improving. 2. Lung lesion: Recently hospitalized in [place] and found to have multiple lung lesions bilaterally. ?underlying malignancy. Outpatient PET/CT. 3. A-fib: Chronic, rate controlled. Continue cardizem, Eliquis. 4. Anemia: Secondary to iron deficiency. H/H trending down. No apparent bleeding. Check stool hemoccult. Start ferrous sulfate. 5. Diabetes mellitus: Monitor accuchecks and cover with sliding scale insulin. Metformin on hold. 6. DVT prophylaxis: Eliquis. Discharge Planning Possible discharge next 1-2 days. Problem Qualifiers (1) COPD (chronic obstructive pulmonary disease): Qualified Codes: J44.1 - Chronic obstructive pulmonary disease with (acute) exacerbation Meng Yo MD Feb 12, 2017 14:09
--- NOTE | 2017-02-12 15:49 | HHI.PR ---
Subjective Remarks alert less sob Objective Vital Signs Date Time Temp Pulse Resp B/P (MAP) Pulse Ox O2 Delivery O2 Flow Rate FiO2 02/12/17 11:27 96.8 64 18 132/68 (89) 92 02/12/17 07:23 71 16 131/61 (84) 99 02/12/17 07:12 Room Air 02/12/17 04:00 97.7 62 20 121/58 (79) 97 02/12/17 00:00 96.4 84 21 131/58 (82) 93 02/11/17 20:31 Nasal Cannula 3.00 02/11/17 20:00 96.8 68 19 135/63 (87) 95 I/O 02/11/17 02/11/17 02/11/17 02/12/17 02/12/17 02/12/17 07:00 15:00 23:00 07:00 15:00 23:00 Intake Total 360 ml 480 ml 577 ml 480 ml Balance 360 ml 480 ml 577 ml 480 ml Intake Oral 360 ml 480 ml 240 ml 480 ml IV Total 337 ml # Voids 2 2 1 2 # Bowel Movements 0 0 0 1 Result Diagram: 02/12/1782202/12/1723 Objective Remarks GENERAL: SKIN: Warm and dry. HEAD: Atraumatic. Normocephalic. EYES: Pupils equal and round. No scleral icterus. No injection or drainage. ENT: No nasal bleeding or discharge. Mucous membranes pink and moist. NECK: Trachea midline. No JVD. CARDIOVASCULAR: Regular rate and rhythm. RESPIRATORY: No accessory muscle use. Clear to auscultation. Breath sounds equal bilaterally. GASTROINTESTINAL: Abdomen soft, non-tender, nondistended. Hepatic and splenic margins not palpable. MUSCULOSKELETAL: Extremities without clubbing, cyanosis, or edema. No obvious deformities. NEUROLOGICAL: Awake and alert. No obvious cranial nerve deficits. Motor grossly within normal limits. Five out of 5 muscle strength in the arms and legs. Normal speech. PSYCHIATRIC: Appropriate mood and affect; insight and judgment normal. Assessment and Plan Assessment and Plan COPD EXACERBATION IMPROVING PLAN O2 NEEDED BRONCHODILATOR THERAPY INCREASE ACTIVITY Jorge Patel MD Feb 12, 2017 15:49
[2017-02-12] MEDS: FERROUS SULFATE 325 MG (65 MG ELEMENTAL IRON) TAB PO SCH ×2 (15:51→21:39)
[2017-02-12] MEDS: ZOLPIDEM TARTRATE 10 MG TAB PO PRN (21:47)
[2017-02-13] VITALS: BP 130/57; PULSE 76; RESP 16; TEMP 97.4; O2SAT 98
[2017-02-13] MEDS: methylPREDNISolone SOD SUCC 40 MG/1 ML VIAL IV PUSH SCH ×2 (06:18→11:34)
[2017-02-13] MEDS: INSULIN ASPART SUPPLEMENTAL SCALE SQ SCH ×2 (06:22→11:00)
[2017-02-13 07:49] LABS: AUTOMATED NEUTROPHIL # 8.2 TH/MM3 (1.8-7.7); BASOPHIL % 0.1 % (0.0-2.0); HEMATOCRIT 24.2 % (35.0-46.0); HEMO FLAGS DIFF FINAL; LYMPH % 5.6 % (9.0-44.0); LYMPHOCYTE # 0.5 TH/MM3 (1.0-4.8); MEAN CELL VOLUME 94.3 FL (80.0-100.0); MEAN CORPUSCULAR HEMOGLOBIN 31.6 PG (27.0-34.0); MEAN CORPUSCULAR HGB CONC 33.5 % (32.0-36.0); MONO % 3.8 % (0.0-8.0); NEUT % 90.5 % (16.0-70.0); PLATELET COUNT 313 TH/MM3 (150-450); RED BLOOD COUNT 2.56 MIL/MM3 (4.00-5.30); RED CELL DISTRIBUTION WIDTH 15.6 % (11.6-17.2)
[2017-02-13 07:52] VITALS: BP 149/72; PULSE 61; RESP 18; TEMP 97; O2SAT 96
[2017-02-13 08:01] LABS: BICARBONATE 28.6 MEQ/L (21.0-32.0)
[2017-02-13] MEDS: DILTIAZEM HCL 30 MG TAB PO SCH ×2 (09:27→14:16)
[2017-02-13] MEDS: SODIUM CHLORIDE 0.9% FLUSH 10 ML FLUSH IV FLUSH SCH (09:27)
[2017-02-13] MEDS: APIXABAN 5 MG TABLET PO SCH (09:27)
[2017-02-13] MEDS: DOCUSATE SODIUM 50 MG/SENNA 8.6 MG TAB PO SCH (09:27)
[2017-02-13] MEDS: FERROUS SULFATE 325 MG (65 MG ELEMENTAL IRON) TAB PO SCH (09:27)
[2017-02-13] MEDS: guaiFENesin E.R. 600 MG TAB PO SCH (09:27)
[2017-02-13] MEDS: BUDESONIDE-FORMOTEROL 160/4.5 MCG INHALER INH SCH (09:28)
[2017-02-13] MEDS: TIOTROPIUM BROMIDE 18 MCG INH INH SCH (09:28)
[2017-02-13 11:29] VITALS: BP 147/65; PULSE 62; RESP 18; TEMP 96.6; O2SAT 97
[2017-02-13] MEDS ORDERED: SYMB160A INH (14:10)
[2017-02-13] MEDS ORDERED: PRED10PA PO (14:10)
[2017-02-13] MEDS ORDERED: HYDR-3516 PO (14:10)
[2017-02-13] MEDS ORDERED: IPRASOL INH (14:10)
[2017-02-13] MEDS ORDERED: FERR325T20 PO (14:10)
--- NOTE | 2017-02-13 14:10 | HHI.DCPOC ---
Discharge Care Plan Diagnosis: (1) Hypertension (2) DM (diabetes mellitus) (3) A-fib (4) COPD with exacerbation Goals to Promote Your Health * To prevent worsening of your condition and complications * To maintain your health at the optimal level Directions to Meet Your Goals Take your medications as prescribed Follow your dietary instruction Follow activity as directed Keep your appointments as scheduled Take your immunizations and boosters as scheduled If your symptoms worsen call your PCP, if no PCP go to Urgent Care Center or Emergency Room Smoking is Dangerous to Your Health. Avoid second hand smoke Call the 24-hour hour crisis hotline for domestic abuse at Meng Yo MD Feb 13, 2017 14:10
[2017-02-13 14:11] VITALS: O2SAT 96
--- NOTE | 2017-02-13 14:15 | HHI.DS ---
Discharge Summary Admission Date Feb 10, 2017 at 20:21 Discharge Date: Feb 13, 2017 Admitting Diagnosis COPD exacerbation with hypoxia (1) COPD (chronic obstructive pulmonary disease) ICD Code: J44.9 - COPD (chronic obstructive pulmonary disease) Status: Chronic (2) Hypoxia ICD Code: R09.02 - Hypoxemia (3) Pulmonary lesion ICD Code: R91.1 - Solitary pulmonary nodule (4) A-fib ICD Code: I48.91 - Unspecified atrial fibrillation (5) Anemia ICD Code: D64.9 - Anemia, unspecified Status: Acute (6) DM (diabetes mellitus) ICD Code: E11.9 - Type 2 diabetes mellitus without complications Procedures None Brief History - From Admission This is a 71-year-old female with a PMH of HTN, A. fib on Eliquis, Hyperlipidemia and COPD who presented to the ER w/ complaints of SOB starting earlier today. Denies fever, chills or cough. States she was in [place] on vacation and had similar symptoms for which she was hospitalized, CT Chest w/o contrast 01/21/17 w/ extensive emphysematous changes, multiple lung lesions in right and left lung, possibly mucus plugging or underlying malignancy with recommendation for PET/CT for follow-up. Previous admit here 12/30-01/04 for COPD /Afib w/ CTA 12/30/16 showing RML fullness w/ recommendation for PET/CT in 6mo. Has first appt w/ Dr. Patel on Saturday. On arrival, BP 132/63, HR 84, O2 sat 87 % on RA, Temp 99.6. Currently O2 sat 95% on 3L NC. CBC essentially baseline. GFR 61. Troponin negative. CXR with fibro-emphysematous changes, no evidence of cardiopulmonary disease. S/p Solu-Medrol and DuoNeb in ER w/ some improvement. CBC/BMP: 02/13/17 0605 02/13/17 0605 Significant Findings Laboratory Tests Test 02/10/17 18:18 02/10/17 18:30 02/11/17 07:06 02/12/17 08:23 Arterial Blood pH 7.44 (7.380-7.420) Arterial Blood Partial Pressure CO2 36 mmHg (38-42) Arterial Blood Oxygen Content 11.4 Vol % (12.0-20.0) Blood Gas Hemoglobin 8.6 G/DL (12.0-16.0) Red Blood Count 2.85 MIL/MM3 (4.00-5.30) 2.69 MIL/MM3 (4.00-5.30) 2.69 MIL/MM3 (4.00-5.30) Hemoglobin 9.1 GM/DL (11.6-15.3) 8.6 GM/DL (11.6-15.3) 8.6 GM/DL (11.6-15.3) Hematocrit 26.6 % (35.0-46.0) 25.2 % (35.0-46.0) 25.2 % (35.0-46.0) Monocytes (%) (Auto) 10.2 % (0.0-8.0) Random Glucose 122 MG/DL (74-106) 230 MG/DL (74-106) 202 MG/DL (74-106) Albumin 2.9 GM/DL (3.4-5.0) 2.8 GM/DL (3.4-5.0) Estimat Glomerular Filtration Rate 61 ML/MIN (>89) 47 ML/MIN (>89) 69 ML/MIN (>89) Troponin I LESS THAN 0.02 NG/ML Neutrophils (%) (Auto) 84.0 % (16.0-70.0) 91.4 % (16.0-70.0) Lymphocytes # (Auto) 0.7 TH/MM3 (1.0-4.8) 0.6 TH/MM3 (1.0-4.8) Creatinine 1.14 MG/DL (0.50-1.00) Aspartate Amino Transf (AST/SGOT) 10 U/L (15-37) White Blood Count 14.8 TH/MM3 (4.0-11.0) Lymphocytes (%) (Auto) 4.1 % (9.0-44.0) Neutrophils # (Auto) 13.5 TH/MM3 (1.8-7.7) Iron Level 39 MCG/DL (50-170) Total Iron Binding Capacity 213 MCG/DL (250-450) Percent Iron Saturation 18.3 % (20-50) Ferritin 652 NG/ML (8-252) Test 02/13/17 06:05 Red Blood Count 2.56 MIL/MM3 (4.00-5.30) Hemoglobin 8.1 GM/DL (11.6-15.3) Hematocrit 24.2 % (35.0-46.0) Neutrophils (%) (Auto) 90.5 % (16.0-70.0) Lymphocytes (%) (Auto) 5.6 % (9.0-44.0) Neutrophils # (Auto) 8.2 TH/MM3 (1.8-7.7) Lymphocytes # (Auto) 0.5 TH/MM3 (1.0-4.8) Blood Urea Nitrogen 20 MG/DL (7-18) Random Glucose 202 MG/DL (74-106) Estimat Glomerular Filtration Rate 82 ML/MIN (>89) Imaging Last Impressions Chest X-Ray 02/10/17 0187 Signed Impressions: Service Date/Time: Friday, February 10, 2017 18:20 - CONCLUSION: Fibroemphysematous changes. No evidence of acute cardiopulmonary disease. Trae Voss MD PE at Discharge General: No acute distress. Heart: Regular rate and rhythm. No murmur. Lungs: Improved air movement today. Decreased wheeze. Breathing is nonlabored. Abdomen: Soft, nontender, nondistended. Extremities: No lower extremity edema. Psych: Alert and oriented. Pt update on day of discharge The patient states that she feels much better and would like to go home today. She states that she has oxygen at home, which she uses as needed. She has an oxygen concentrator as well as a portable tank. Hospital Course The patient was admitted for treatment of COPD exacerbation. She was continued on oxygen, steroids, bronchodilators. Pulmonology was consulted. The patient continued to improve throughout the hospitalization. She was noted to be anemic and further workup showed labs consistent with iron deficiency. She was started on iron supplementation. On the day of discharge, the patient was felt to be stable for discharge home with home oxygen. The patient already has a concentrator and portable oxygen tank at home. She was advised to have someone bring her the portable oxygen tank for the trip home. Pt Condition on Discharge: Stable Discharge Disposition: Discharge Home Discharge Time: > 30 minutes Discharge Instructions DIET: Follow Instructions for: Heart Healthy Diet Activities you can perform: Regular-No Restrictions Follow up Referrals: PCP Follow-up - 1 Week with Trae Garsia MD Pulmonology - 1 Week with Jorge Patel MD New Orders: CBC NO DIFF - 2-3 Days New Medications: Prednisone (21) 10 mg tab Dose Pack (Prednisone (21) 10 mg tab Dose Pack) 10 Mg Pack 10 MG PO DIRECTED for Inflammation, #1 DSPK 0 Refills Budesonide-Formoterol Inh (Symbicort Inh) 160-4.5 Mcg/Act Aero 2 PUFF INH Q12HR for COPD, #1 INHALER 0 Refills Ferrous Sulfate (Ferosul) 325 Mg (65 Mg Iron) Tablet 325 MG PO BID for Anemia, #60 TAB 0 Refills Continued Medications: Allopurinol (Allopurinol) 100 Mg Tab 100 MG PO BID for Gout, #30 TAB 0 Refills Apixaban (Eliquis) 5 Mg Tab 5 MG PO BID for Blood Clot Prevention, #62 TAB Diltiazem (Cardizem) 30 Mg Tab 30 MG PO QID for afib, #120 TAB Epinephrine Inj (Epinephrine Inj) 0.15 Mg/0.3 Ml Inj 0.3 MG IM DIRECTED PRN for ALLERGIC REACTION, #1 INJECTION 0 Refills Famotidine (Famotidine) 20 Mg Tab 20 MG PO BID, #14 TAB 0 Refills Hydrocodone-Acetaminophen (Hydrocodone-Acetaminophen) 5-325 mg Tab 1 TAB PO Q4H PRN for PAIN SCALE 1 TO 10, #20 TAB 0 Refills (This prescription has been renewed) Insulin Aspart Inj (Novolog Inj) 1,000 Unit/10 Ml Vial 2-12 UNITS SQ ACHS for Blood Sugar Management, #10 ML 0 Refills Max dose at bedtime ( ) units; sugars less than 70,(0) units; sugars 150-199,(2) units; sugars 200-249,(4) units; sugars 250-299,(7) units; sugars 300-349,(10) units; sugars greater than 349,(12)units Ipratropium-Albuterol Neb (Duoneb) 0.5-2.5 Mg/3 Ml Neb 1 NEBULE INH Q4HR NEB PRN for SHORTNESS OF BREATH, #180 NEBULE 0 Refills (This prescription has been renewed) Metformin (Metformin) 500 Mg Tab 500 MG PO BIDPC for Blood Sugar Management, #60 TAB 0 Refills With meals Tiotropium Inh (Spiriva Handihaler) 18 Mcg Cap 18 MCG INH DAILY for Shortness of Breath, #31 CAP Zolpidem (Zolpidem) 10 Mg Tab 10 MG PO HS PRN for INSOMNIA, TAB 0 Refills Meng Yo MD Feb 13, 2017 14:15
== END 2017-02-13 16:06 | disposition home or self-care (01) | DRG 189 ==
LOC: NEPC 17:38 → NEDA 20:08 → OBSVTOIN 20:21 → N06B 22:17
PROVIDERS: ADMIT Family Medicine; ATTEND Family Medicine
PROC: 3E0F7GC Introduction of Other Therapeutic Substance into Respiratory Tract, Via Natural or Artificial Opening (ICD-10-PCS; principal; 2017-02-10)
DX: J96.21 Acute and chronic respiratory failure with hypoxia (principal); I48.2 Chronic atrial fibrillation; J44.1 Chronic obstructive pulmonary disease with (acute) exacerbation; E11.9 Type 2 diabetes mellitus without complications; I10 Essential (primary) hypertension; D50.9 Iron deficiency anemia, unspecified; R91.8 Other nonspecific abnormal finding of lung field; Z79.01 Long term (current) use of anticoagulants; K21.9 Gastro-esophageal reflux disease without esophagitis; M10.9 Gout, unspecified; Z79.84 Long term (current) use of oral hypoglycemic drugs; Z79.4 Long term (current) use of insulin; E78.5 Hyperlipidemia, unspecified; Z87.891 Personal history of nicotine dependence; R91.1 Solitary pulmonary nodule
CPT/HCPCS: 36600; 71010; 80048; 80053; 82272; 82728; 82805; 82948; 83540; 83550; 84484; 85025; 93005; 94640; 94664; 96374; J1815; J2920; J2930; J7030

== ENCOUNTER 2017-11-25 14:19 | Inpatient (IN) | payer MEDICARE, OTHER ==
[2017-11-25] VITALS (9 sets, daily range): BP systolic 127–153; BP diastolic 61–78; PULSE 55–79; RESP 18–20; TEMP 97.7–98; O2SAT 95–100
[~2017-11-25] VITALS: Ht 170.2 cm; Wt 61.8 kg
[~2017-11-25 14:19] MED LIST changes: +FERR325T20 PO; -LEVO500T8 PO; -LISI-515 PO; +PRED-503 PO; +PRED10PA PO; -PRED20 PO; +SYMB80AE INH; -VENTAER INH
[2017-11-25] MEDS: RESP: ALBUTEROL 2.5 MG/IPRATROPIUM 0.5 MG NEB (SCH) INH (17:12)
[2017-11-25] MEDS ORDERED: methylPREDNISolone SOD SUCC 125 MG/2 ML VIAL IV PUSH ONE (17:15)
[2017-11-25] MEDS ORDERED: SODIUM CHLORIDE 0.9% FLUSH 10 ML FLUSH IVF PRN (17:15)
--- NOTE | 2017-11-25 17:15 | PD ---
HPI Chief Complaint: Respiratory Symptoms Time Seen by Provider: 16:56 Travel History International Travel<30 days: No Contact w/Intl Traveler<30days: No Traveled to known affect area: No History of Present Illness HPI 72-year-old female complains coughing congestion wheezing shortness of breath. Patient states that the symptoms started 6 days ago and get worse for the past 2 days. Patient states that the cough is productive. Patient has history of COPD and has been using inhaler and nebs at home without much relief. Patient denies any fever chills. Patient was seen by hospice care 6 days ago and was given prescription for sulfa drugs. Patient states that she has been taking the antibiotic without much relief of the symptoms. Patient denies any fever chills. Patient has history of hypertension and diabetes. Patient denies any history of hyperlipidemia. Patient is a former smoker. Patient states that she had chest wall pain with coughing. PFSH Past Medical History Hx Anticoagulant Therapy: Yes (ELIQUIS) Arthritis: Yes (RIGHT WRIST) Asthma: No Atrial Fibrillation: Yes Autoimmune Disease: No Blood Disorders: No Anxiety: Yes (when in the hospital/ sick ) Depression: No Heart Rhythm Problems: Yes Cancer: No Cardiac Catheterization: No Cardiovascular Problems: No High Cholesterol: No Chemotherapy: No Chest Pain: Yes Congestive Heart Failure: No COPD: Yes Coronary Artery Disease: No Diabetes: Yes Patient Takes Glucophage: Yes Diminished Hearing: No Endocrine: No Gastrointestinal Disorders: Yes GERD: Yes Gout: Yes Genitourinary: No Hypertension: Yes Immune Disorder: No Musculoskeletal: No Neurologic: No Psychiatric: No Reproductive: No Respiratory: Yes Immunizations Current: Yes Migraines: Yes Myocardial Infarction: No Radiation Therapy: No Sleep Apnea: No Thyroid Disease: No Tetanus Vaccination: > 5 Years Influenza Vaccination: Yes ?: Not Menopausal: Yes : 3 Para: 2 Miscarriage: 1 Past Surgical History Abdominal Surgery: No Cardiac Surgery: No Coronary Artery Bypass Graft: No Ear Surgery: No Endocrine Surgery: No Eye Surgery: No Genitourinary Surgery: No Gynecologic Surgery: No Hysterectomy: Yes Oral Surgery: No Thoracic Surgery: No Other Surgery: Yes (foot surgery) Social History Alcohol Use: No Tobacco Use: No Substance Use: No Allergies-Medications (Allergen,Severity, Reaction): Coded Allergies: morphine (Unverified Allergy, Severe, N&V, 11/25/17) penicillin G (Unverified Allergy, Mild, HIVES, 11/25/17) "black hairy tongue" Penicillins (Verified Allergy, Unknown, 11/25/17) shellfish derived (Unverified Adverse Reaction, Intermediate, swelling, 05/04) Reported Meds & Prescriptions Reported Meds & Active Scripts Active Duoneb (Ipratropium-Albuterol Neb) 0.5-2.5 Mg/3 Ml Neb 1 Nebule INH Q4HR NEB PRN Metformin (Metformin HCl) 500 Mg Tab 500 Mg PO BIDPC With meals Cardizem (Diltiazem HCl) 30 Mg Tab 30 Mg PO QID Reported Symbicort Inh (Budesonide/Formoterol Fumarate) 80-4.5 Mcg/Act Aero Unknown Dose INH Q12HR Allopurinol 100 Mg Tab 100 Mg PO BID Zolpidem (Zolpidem Tartrate) 10 Mg Tab 10 Mg PO HS PRN Review of Systems General / Constitutional: No: Fever Eyes: No: Visual changes HENT: No: Headaches Cardiovascular: Positive: Chest Pain or Discomfort Respiratory: Positive: Cough, Shortness of Breath, Wheezing Gastrointestinal: No: Abdominal Pain Genitourinary: No: Dysuria Musculoskeletal: No: Pain Skin: No Rash Neurologic: No: Weakness Psychiatric: No: Depression Endocrine: No: Polydipsia Hematologic/Lymphatic: No: Easy Bruising Physical Exam Narrative GENERAL: Well-nourished, well-developed patient. SKIN: Focused skin assessment warm/dry. HEAD: Normocephalic. EYES: No scleral icterus. No injection or drainage. NECK: Supple, trachea midline. No JVD or lymphadenopathy. CARDIOVASCULAR: Regular rate and rhythm without murmurs, gallops, or rubs. RESPIRATORY: Patient has diminished breath sounds bilaterally. Patient has moderate to mild expiratory wheezes bilaterally. Patient has rhonchi at the bases. GASTROINTESTINAL: Abdomen soft, non-tender, nondistended. MUSCULOSKELETAL: No cyanosis, or edema. BACK: Nontender without obvious deformity. No CVA tenderness. Neurologic exam normal. Data Data Last Documented VS Vital Signs Date Time Temp Pulse Resp B/P (MAP) Pulse Ox O2 Delivery O2 Flow Rate FiO2 11/25/17 17:19 55 19 127/61 (83) 100 Nasal Cannula 2.00 11/25/17 14:25 97.7 Orders Orders Complete Blood Count With Diff (11/25/17 17:03) Comprehensive Metabolic Panel (11/25/17 17:03) B-Type Natriuretic Peptide (11/25/17 17:03) Act Partial Throm Time (Ptt) (11/25/17 17:03) Prothrombin Time / Inr (Pt) (11/25/17 17:03) Troponin I (11/25/17 17:03) Influenzae A/B Antigen (11/25/17 17:03) Blood Culture (11/25/17 17:03) Iv Access Insert/Monitor (11/25/17 17:03) Ecg Monitoring (11/25/17 17:03) Oximetry (11/25/17 17:03) Oxygen Administration (11/25/17 17:03) Chest, Single Ap (11/25/17 17:03) Sodium Chloride 0.9% Flush (Ns Flush) (11/25/17 17:15) Methylprednisolone So Succ Inj (Solumedr (11/25/17 17:15) Albuterol-Ipratropium Neb (Duoneb Neb) (11/25/17 17:15) Electrocardiogram (11/25/17 14:06) Labs Laboratory Tests Test 11/25/17 17:05 White Blood Count 10.1 TH/MM3 Red Blood Count 4.36 MIL/MM3 Hemoglobin 13.7 GM/DL Hematocrit 39.6 % Mean Corpuscular Volume 90.7 FL Mean Corpuscular Hemoglobin 31.5 PG Mean Corpuscular Hemoglobin Concent 34.7 % Red Cell Distribution Width 13.6 % Platelet Count 292 TH/MM3 Mean Platelet Volume 9.8 FL Neutrophils (%) (Auto) 76.2 % Lymphocytes (%) (Auto) 14.6 % Monocytes (%) (Auto) 7.3 % Eosinophils (%) (Auto) 0.8 % Basophils (%) (Auto) 1.1 % Neutrophils # (Auto) 7.7 TH/MM3 Lymphocytes # (Auto) 1.5 TH/MM3 Monocytes # (Auto) 0.7 TH/MM3 Eosinophils # (Auto) 0.1 TH/MM3 Basophils # (Auto) 0.1 TH/MM3 CBC Comment DIFF FINAL Differential Comment Prothrombin Time 10.5 SEC Prothromb Time International Ratio 1.0 RATIO Activated Partial Thromboplast Time 28.4 SEC Blood Urea Nitrogen 18 MG/DL Creatinine 1.11 MG/DL Random Glucose 84 MG/DL Total Protein 7.8 GM/DL Albumin 4.4 GM/DL Calcium Level 9.1 MG/DL Alkaline Phosphatase 94 U/L Aspartate Amino Transf (AST/SGOT) 25 U/L Alanine Aminotransferase (ALT/SGPT) 44 U/L Total Bilirubin 0.6 MG/DL Sodium Level 138 MEQ/L Potassium Level 4.1 MEQ/L Chloride Level 104 MEQ/L Carbon Dioxide Level 20.7 MEQ/L Anion Gap 13 MEQ/L Estimat Glomerular Filtration Rate 49 ML/MIN Troponin I LESS THAN 0.02 NG/ML B-Type Natriuretic Peptide 13 PG/ML MDM Medical Decision Making Medical Screen Exam Complete: Yes Emergency Medical Condition: Yes Interpretation(s) Last Impressions Chest X-Ray 11/25/17 1703 Signed Impressions: CONCLUSION: Negative for acute process. 1804 p.m. CBC within normal limits. CMP within normal limits. BNP 13. Influenza AB antigen negative. Differential Diagnosis Differential diagnosis including acute exacerbation COPD, bronchitis, pneumonia , PE, pneumothorax. Narrative Course 72-year-old female with coughing wheezing shortness of breath. History of COPD. Albuterol with Atrovent unit dose treatment 3. Solu-Medrol 125 mg IV. 18 10 PM. Reexamination patient has moderate amount of expiratory wheezes and still complains of shortness of breath. Levaquin 750 mg IV given. Diagnosis Primary Impression: COPD with acute exacerbation Admitting Information Admitting Physician Requests: Admit Arnold Rowan MD Nov 25, 2017 17:15
[2017-11-25 17:31] LABS: AUTOMATED NEUTROPHIL # 7.7 TH/MM3 (1.8-7.7); BASOPHIL # 0.1 TH/MM3 (0-0.2); BASOPHIL % 1.1 % (0.0-2.0); EOSINOPHIL # 0.1 TH/MM3 (0-0.4); EOSINOPHIL % 0.8 % (0.0-4.0); HEMATOCRIT 39.6 % (35.0-46.0); HEMOGLOBIN 13.7 GM/DL (11.6-15.3); LYMPH % 14.6 % (9.0-44.0); LYMPHOCYTE # 1.5 TH/MM3 (1.0-4.8); MEAN CELL VOLUME 90.7 FL (80.0-100.0); MEAN CORPUSCULAR HEMOGLOBIN 31.5 PG (27.0-34.0); MEAN CORPUSCULAR HGB CONC 34.7 % (32.0-36.0); MEAN PLATELET VOLUME 9.8 FL (7.0-11.0); MONO % 7.3 % (0.0-8.0); MONOCYTE # 0.7 TH/MM3 (0-0.9); NEUT % 76.2 % (16.0-70.0); PLATELET COUNT 292 TH/MM3 (150-450); RED BLOOD COUNT 4.36 MIL/MM3 (4.00-5.30); RED CELL DISTRIBUTION WIDTH 13.6 % (11.6-17.2); WHITE BLOOD COUNT 10.1 TH/MM3 (4.0-11.0)
[2017-11-25 17:41] LABS: PROTHROMBIN TIME - PATIENT 10.5 SEC (9.8-11.6)
--- NOTE | 2017-11-25 17:46 | RADRPT ---
EXAM DATE: 11/25/2017 5:34 PM EDT AGE/SEX: 72 years / Female INDICATIONS: Shortness of breath. CLINICAL DATA: This is the patient's initial encounter. Patient reports that signs and symptoms have been present for 1 day and indicates a pain score of 0/10. MEDICAL/SURGICAL HISTORY: Chronic obstructive pulmonary disease. Hypertension. . Bilateral fee t COMPARISON: [facility] [place], CHEST SINGLE AP, 02/10/2017. . FINDINGS: A single AP view of the chest demonstrates the lungs to be symmetrically aerated without evidence of mass, infiltrate or effusion. The cardiomediastinal contours are unremarkable. Osseous structures a re intact. CONCLUSION: Negative for acute process. Electronically signed by: Haja Atkinson MD 11/25/2017 5:44 PM EDT
[2017-11-25 17:47] LABS: ALBUMIN 4.4 GM/DL (3.4-5.0); ALT (GPT) 44 U/L (10-53); AST (GOT) 25 U/L (15-37); BICARBONATE 20.7 MEQ/L (21.0-32.0); BLOOD UREA NITROGEN 18 MG/DL (7-18); CALCIUM 9.1 MG/DL (8.5-10.1); CHLORIDE 104 MEQ/L (98-107); CREATININE 1.11 MG/DL (0.50-1.00); GLOMERULAR FILTRATION RATE 49 ML/MIN (>89); GLUCOSE,RANDOM 84 MG/DL (74-106); SODIUM (NA) 138 MEQ/L (136-145)
[2017-11-25 17:51] LABS: ALKALINE PHOSPHATASE 94 U/L (45-117); TOTAL BILIRUBIN ADULT 0.6 MG/DL (0.2-1.0); TOTAL PROTEIN 7.8 GM/DL (6.4-8.2); TROPONIN I LESS THAN 0.02 NG/ML (0.02-0.05)
[2017-11-25] MEDS ORDERED: LEVOFLOXACIN 750 MG PREMIX INJ 150 ML IV ONE (18:15)
--- NOTE | 2017-11-25 18:43 | HHI.HP ---
[facility] Admission Diagnosis Acute exacerbation COPD Diagnoses: (1) DM (diabetes mellitus) Diagnosis: Principal (2) COPD with acute exacerbation Diagnosis: Principal (3) Hypoxia Diagnosis: Principal Travel History International Travel<30 Days: No Contact w/Intl Traveler <30 Da: No Traveled to Known Affected Are: No History of Present Illness Mrs. Bah is a 72-year-old female. She has COPD at baseline. For 6 days she has been having a slowly graduating worsening of her respiratory status. In the past 2 days this has rapidly accelerated to a COPD exacerbation. She also reports a productive cough. Oxygenation has been worse than baseline. As an outpatient she is on hospice in regards to her COPD. She was given an antibiotic which I believe is Bactrim but this does not seem to have provided her benefit. Review of Systems Constitutional: COMPLAINS OF: Fatigue, DENIES: Fever, Chills Eyes: DENIES: Diplopia, Eye inflammation, Eye pain Ears, nose, mouth, throat: DENIES: Tinnitus, Hearing loss, Vertigo, Nasal discharge Respiratory: COMPLAINS OF: Cough, Wheezing, Shortness of breath Cardiovascular: COMPLAINS OF: Dyspnea on Exertion, DENIES: Chest pain, Palpitations, Syncope Gastrointestinal: DENIES: Abdominal pain, Black stools, Bloody stools Musculoskeletal: DENIES: Joint pain, Muscle aches, Stiffness Integumentary: DENIES: Abnormal pigmentation, Pruritus, Rash, Nail changes Hematologic/lymphatic: DENIES: Bruising, Lymphadenopathy Immunologic/allergic: DENIES: Eczema, Urticaria Neurologic: DENIES: Abnormal gait, Headache, Paresthesias Psychiatric: DENIES: Anxiety, Confusion, Hallucinations Past Family Social History Past Medical History COPD DM Past Surgical History No past surgeries reported Reported Medications Reported Meds & Active Scripts Active Duoneb (Ipratropium-Albuterol Neb) 0.5-2.5 Mg/3 Ml Neb 1 Nebule INH Q4HR NEB PRN Metformin (Metformin HCl) 500 Mg Tab 500 Mg PO BIDPC With meals Cardizem (Diltiazem HCl) 30 Mg Tab 30 Mg PO QID Reported Symbicort Inh (Budesonide/Formoterol Fumarate) 80-4.5 Mcg/Act Aero Unknown Dose INH Q12HR Allopurinol 100 Mg Tab 100 Mg PO BID Zolpidem (Zolpidem Tartrate) 10 Mg Tab 10 Mg PO HS PRN Allergies: Coded Allergies: morphine (Unverified Allergy, Severe, N&V, 11/25/17) penicillin G (Unverified Allergy, Mild, HIVES, 11/25/17) "black hairy tongue" Penicillins (Verified Allergy, Unknown, 11/25/17) shellfish derived (Unverified Adverse Reaction, Intermediate, swelling, 05/04) Family History Lung cancer in father CHF in mother Social History Past history of smoking No alcohol abuse No illicit drug abuse Physical Exam Vital Signs Vital Signs Date Time Temp Pulse Resp B/P (MAP) Pulse Ox O2 Delivery O2 Flow Rate FiO2 11/25/17 17:19 55 19 127/61 (83) 100 Nasal Cannula 2.00 11/25/17 17:18 100 Nasal Cannula 11/25/17 15:11 Nasal Cannula 2.00 11/25/17 15:10 62 20 153/65 (94) 97 Room Air 11/25/17 15:01 Room Air 11/25/17 14:25 97.7 67 20 139/78 (98) 96 Physical Exam GENERAL: NAD, A&Ox3 HEAD: Normocephalic. NECK: Supple, trachea midline. No lymphadenopathy. EYES: No scleral icterus. No injection or drainage. CARDIOVASCULAR: Regular rate and rhythm without murmurs, gallops, or rubs. RESPIRATORY: Breath sounds equal bilaterally. No accessory muscle use. Bilateral wheezing. GASTROINTESTINAL: Abdomen soft, non-tender, nondistended. MUSCULOSKELETAL: No cyanosis, or edema. SKIN: Warm and dry. NEURO: No focal neurological deficitis. Laboratory Laboratory Tests Test 11/25/17 17:05 White Blood Count 10.1 Red Blood Count 4.36 Hemoglobin 13.7 Hematocrit 39.6 Mean Corpuscular Volume 90.7 Mean Corpuscular Hemoglobin 31.5 Mean Corpuscular Hemoglobin Concent 34.7 Red Cell Distribution Width 13.6 Platelet Count 292 Mean Platelet Volume 9.8 Neutrophils (%) (Auto) 76.2 Lymphocytes (%) (Auto) 14.6 Monocytes (%) (Auto) 7.3 Eosinophils (%) (Auto) 0.8 Basophils (%) (Auto) 1.1 Neutrophils # (Auto) 7.7 Lymphocytes # (Auto) 1.5 Monocytes # (Auto) 0.7 Eosinophils # (Auto) 0.1 Basophils # (Auto) 0.1 CBC Comment DIFF FINAL Differential Comment Prothrombin Time 10.5 Prothromb Time International Ratio 1.0 Activated Partial Thromboplast Time 28.4 Blood Urea Nitrogen 18 Creatinine 1.11 Random Glucose 84 Total Protein 7.8 Albumin 4.4 Calcium Level 9.1 Alkaline Phosphatase 94 Aspartate Amino Transf (AST/SGOT) 25 Alanine Aminotransferase (ALT/SGPT) 44 Total Bilirubin 0.6 Sodium Level 138 Potassium Level 4.1 Chloride Level 104 Carbon Dioxide Level 20.7 Anion Gap 13 Estimat Glomerular Filtration Rate 49 Troponin I LESS THAN 0.02 B-Type Natriuretic Peptide 13 Date/Time Source Procedure Growth Status 11/25/17 17:10 Blood Peripheral Aerobic Blood Culture Pending Received 11/25/17 17:10 Blood Peripheral Anaerobic Blood Culture Pending Received 11/25/17 17:05 Nasal Washing Influenza Types A,B Antigen (CANDICE) - Final NEGATIVE FOR FLU A AND B ANTIGEN.... Complete Result Diagram: 11/25/17 1705 11/25/17 1705 Caprini VTE Risk Assessment Caprini VTE Risk Assessment: Mod/High Risk (score >= 2) Caprini Risk Assessment Model Point Value = 1 Point Value = 2 Point Value = 3 Point Value = 5 Age 41-60 Minor surgery BMI > 25 kg/m2 Swollen legs Varicose veins or History of unexplained or recurrent spontaneous Oral contraceptives or hormone replacement Sepsis (< 1 month) Serious lung disease, including pneumonia (< 1 month) Abnormal pulmonary function Acute myocardial infarction Congestive heart failure (< 1 month) History of inflammatory bowel disease Medical patient at bed rest Age 61-74 Arthroscopic surgery Major open surgery (> 45 min) Laparoscopic surgery (> 45 min) Malignancy Confined to bed (> 72 hours) Immobilizing plaster cast Central venous access Age >= 75 History of VTE Family history of VTE Factor V Leiden Prothrombin [id number] Lupus anticoagulant Anticardiolipin antibodies Elevated serum homocysteine Heparin-induced thrombocytopenia Other congenital or acquired thrombophilia Stroke (< 1 month) Elective arthroplasty Hip, pelvis, or leg fracture Acute spinal cord injury (< 1 month) Prophylaxis Regimen Total Risk Factor Score Risk Level Prophylaxis Regimen 0-1 Low Early ambulation 2 Moderate Order ONE of the following: *Sequential Compression Device (SCD) *Heparin 5000 units SQ BID 3-4 Higher Order ONE of the following medications: *Heparin 5000 units SQ TID *Enoxaparin/Lovenox 40 mg SQ daily (WT < 150 kg, CrCl > 30 mL/min) *Enoxaparin/Lovenox 30 mg SQ daily (WT < 150 kg, CrCl > 10-29 mL/min) *Enoxaparin/Lovenox 30 mg SQ BID (WT < 150 kg, CrCl > 30 mL/min) AND/OR *Sequential Compression Device (SCD) 5 or more Highest Order ONE of the following medications: *Heparin 5000 units SQ TID (Preferred with Epidurals) *Enoxaparin/Lovenox 40 mg SQ daily (WT < 150 kg, CrCl > 30 mL/min) *Enoxaparin/Lovenox 30 mg SQ daily (WT < 150 kg, CrCl > 10-29 mL/min) *Enoxaparin/Lovenox 30 mg SQ BID (WT < 150 kg, CrCl > 30 mL/min) AND *Sequential Compression Device (SCD) Assessment and Plan Problem List: (1) Acute bronchitis ICD Code: J20.9 - Acute bronchitis, unspecified (2) COPD (chronic obstructive pulmonary disease) ICD Code: J44.9 - COPD (chronic obstructive pulmonary disease) Status: Chronic (3) COPD with acute exacerbation ICD Code: J44.1 - Chronic obstructive pulmonary disease with (acute) exacerbation Status: Acute Assessment and Plan 72 year-old female admitted secondary to COPD exacerbation with bronchitis COPD exacerbation Bronchitis Continue oxygen supplements as needed Schedule duo nebs When necessary albuterol Azithromycin Systemic steroids Follow for improvement in respiratory status Follow for improvement in exertional tolerance next Diabetes mellitus type 2 Follow blood sugars Insulin sliding scale Diabetic diet Hypertension Continue baseline treatment Follow blood pressures Adjust treatments as needed DVT prophylaxis CHUYITAsPatience Daniel C MD Nov 25, 2017 18:43
[2017-11-25] MEDS ORDERED: NALOXONE HCL 0.4 MG/ML AMP IV PUSH PRN (18:45)
[2017-11-25] MEDS ORDERED: GLUCAGON 1 MG/ML VIAL OTHER PRN (18:45)
[2017-11-25] MEDS ORDERED: MAGNESIUM HYDROXIDE SUSP 30 ML CUP PO PRN (18:45)
[2017-11-25] MEDS ORDERED: DEXTROSE 50% IN WATER 50 ML VIAL(D50) IV PUSH PRN (18:45)
[2017-11-25] MEDS ORDERED: METOCLOPRAMIDE HCL 10 MG/2 ML VIAL IV PUSH PRN (18:45)
[2017-11-25] MEDS ORDERED: SODIUM CHLORIDE 0.9% FLUSH 10 ML FLUSH IV FLUSH PRN (18:45)
[2017-11-25] MEDS: ENOXAPARIN SODIUM 40 MG/0.4 ML SYRINGE SQ SCH (19:24)
--- NOTE | 2017-11-25 19:34 | EKG ---
Date Performed: 11/25/2017 Time Performed: 14:06:02 PTAGE: 72 years EKG: Baseline artifact present Sinus rhythm NONSPECIFIC ST & T-WAVE ABNORMALITY ABNORMAL ECG No significant change from prior electrocardiogram. DOCTOR: Bruce Kessler Interpretating Date/Time 11/25/2017 19:34:08
[2017-11-25] MEDS ORDERED: ACETAMINOPHEN/HYDROcodone 325 MG/5 MG TAB PO ONE (20:45)
[2017-11-25] MEDS ORDERED: ZOLPIDEM TARTRATE 10 MG TAB PO ONE (20:45)
[2017-11-25] MEDS: ALLOPURINOL 100 MG TAB PO SCH (21:25)
[2017-11-25] MEDS: DILTIAZEM HCL 30 MG TAB PO SCH (21:25)
[2017-11-25] MEDS: SODIUM CHLORIDE 0.9% FLUSH 10 ML FLUSH IV FLUSH SCH (21:26)
[2017-11-25] MEDS: INSULIN ASPART SUPPLEMENTAL SCALE SQ SCH (21:27)
[2017-11-26] VITALS (9 sets, daily range): BP systolic 132–138; BP diastolic 63–68; PULSE 60–85; RESP 18–20; TEMP 98–98.6; O2SAT 95–99
[2017-11-26 06:57] LABS: AUTOMATED NEUTROPHIL # 6.5 TH/MM3 (1.8-7.7); BASOPHIL % 0.7 % (0.0-2.0); HEMATOCRIT 38.1 % (35.0-46.0); HEMOGLOBIN 13.3 GM/DL (11.6-15.3); LYMPH % 10.5 % (9.0-44.0); LYMPHOCYTE # 0.8 TH/MM3 (1.0-4.8); MEAN CELL VOLUME 88.7 FL (80.0-100.0); MEAN PLATELET VOLUME 9.6 FL (7.0-11.0); MONO % 1.2 % (0.0-8.0); MONOCYTE # 0.1 TH/MM3 (0-0.9); NEUT % 87.6 % (16.0-70.0); PLATELET COUNT 274 TH/MM3 (150-450); RED BLOOD COUNT 4.29 MIL/MM3 (4.00-5.30); RED CELL DISTRIBUTION WIDTH 13.3 % (11.6-17.2); WHITE BLOOD COUNT 7.4 TH/MM3 (4.0-11.0)
[2017-11-26 07:05] LABS: AST (GOT) 21 U/L (15-37); BICARBONATE 19.3 MEQ/L (21.0-32.0); BLOOD UREA NITROGEN 16 MG/DL (7-18); CALCIUM 9.5 MG/DL (8.5-10.1); CHLORIDE 102 MEQ/L (98-107); CREATININE 1.04 MG/DL (0.50-1.00); GLOMERULAR FILTRATION RATE 52 ML/MIN (>89); GLUCOSE,RANDOM 143 MG/DL (74-106); SODIUM (NA) 135 MEQ/L (136-145)
[2017-11-26 07:07] LABS: ALT (GPT) 41 U/L (10-53)
[2017-11-26 07:10] LABS: ALKALINE PHOSPHATASE 91 U/L (45-117); TOTAL BILIRUBIN ADULT 0.6 MG/DL (0.2-1.0); TOTAL PROTEIN 7.2 GM/DL (6.4-8.2)
[2017-11-26] MEDS: INSULIN ASPART SUPPLEMENTAL SCALE SQ SCH ×4 (09:21→21:00)
[2017-11-26] MEDS: LACTOBACILLUS ACIDOPHILUS TAB PO SCH ×3 (09:27→17:53)
[2017-11-26] MEDS: DILTIAZEM HCL 30 MG TAB PO SCH ×4 (09:27→21:27)
[2017-11-26] MEDS: ALLOPURINOL 100 MG TAB PO SCH ×2 (09:27→21:27)
[2017-11-26] MEDS: SODIUM CHLORIDE 0.9% FLUSH 10 ML FLUSH IV FLUSH SCH ×2 (09:28→21:27)
[2017-11-26] MEDS ORDERED: RESP: ALBUTEROL 2.5 MG/IPRATROPIUM 0.5 MG NEB (PRN) NEB (11:45)
[2017-11-26] MEDS ORDERED: ACETAMINOPHEN/HYDROcodone 325 MG/5 MG TAB PO PRN (11:45)
--- NOTE | 2017-11-26 11:45 | HHI.PR ---
Subjective Remarks Still with shortness of breath and wheezing. But patient says she feels a little bit improved today. Says she has chronic pain and she is taking Newbern 10 mg/325 mg at home and she follows with hospice. Also discussed with hospice. Patient wants to go home was hospice she is eating better. No fever chills overnight. Has some cough whitish yellow color production of sputum. No blood in it. Since she has oxygen at home. Objective Vitals Vital Signs Date Time Temp Pulse Resp B/P (MAP) Pulse Ox O2 Delivery O2 Flow Rate FiO2 11/26/17 09:00 Nasal Cannula 2.00 11/26/17 08:00 98.2 60 20 137/65 (89) 95 11/26/17 08:00 64 11/26/17 04:00 Nasal Cannula 2.00 11/26/17 03:57 98.6 60 18 132/67 (88) 98 11/26/17 03:43 70 11/26/17 00:00 Nasal Cannula 2.00 11/25/17 23:41 63 11/25/17 23:26 97.8 60 18 129/62 (84) 95 11/25/17 20:37 70 11/25/17 20:00 98.0 69 18 151/68 (95) 97 11/25/17 20:00 Nasal Cannula 2.00 11/25/17 19:10 79 20 140/63 (88) 100 Nasal Cannula 2.00 11/25/17 17:19 55 19 127/61 (83) 100 Nasal Cannula 2.00 11/25/17 17:18 100 Nasal Cannula 11/25/17 15:11 Nasal Cannula 2.00 11/25/17 15:10 62 20 153/65 (94) 97 Room Air 11/25/17 15:01 Room Air 11/25/17 14:25 97.7 67 20 139/78 (98) 96 I/O 11/25/17 11/25/17 11/25/17 11/26/17 11/26/17 11/26/17 07:00 15:00 23:00 07:00 15:00 23:00 Intake Total 960 ml Output Total 1000 ml Balance -40 ml Intake Oral 960 ml Output Urine Total 1000 ml # Voids 1 # Bowel Movements 0 Result Diagram: 11/26/17 0545 11/26/17 0545 Imaging Last Impressions Chest X-Ray 11/25/17 1106 Signed Impressions: CONCLUSION: Negative for acute process. Objective Remarks GENERAL: Awake and alert, in nad. CARDIOVASCULAR: Regular rate and rhythm without murmurs, gallops, or rubs. RESPIRATORY: No accessory muscle use. Scattered bilateral wheezing. GASTROINTESTINAL: Abdomen soft, non-tender, nondistended. MUSCULOSKELETAL: No cyanosis, or edema. SKIN: Warm and dry. NEURO: Awake and aler. No focal neurological deficits. Normal speech. A/P Problem List: (1) Acute bronchitis ICD Code: J20.9 - Acute bronchitis, unspecified (2) COPD (chronic obstructive pulmonary disease) ICD Code: J44.9 - COPD (chronic obstructive pulmonary disease) Status: Chronic (3) COPD with acute exacerbation ICD Code: J44.1 - Chronic obstructive pulmonary disease with (acute) exacerbation Status: Acute Assessment and Plan 72 year-old female admitted secondary to COPD exacerbation with bronchitis COPD exacerbation Bronchitis Outpatient Treatment Failure Chronic respiratory failure. She is using 2 L oxygen at home Patient failed Bactrim as an outpatient Levaquin initiated as a treatment here. Continue oxygen supplements as needed Schedule duo nebs and as need Azithromycin Systemic steroids taper as tolerated Add IS Follow for improvement in respiratory status Follow for improvement in exertional tolerance next Continue oxygen supplement oxygen saturation more than 92% Diabetes mellitus type 2 Follow blood sugars Insulin sliding scale Diabetic diet Hypertension Continue baseline treatment Follow blood pressures Adjust treatments as needed Chronic pain. Continue Newbern DVT prophylaxis SCDs, Lovenox Discussed with the patient, nurse Discharge. Possible discharge tomorrow if improves. Patient follows with pulmonology Dr. Johnston as outpatient. Also patient is hospice at home. She wants to be discharged home with hospice when she improves. Sera Pretty MD Nov 26, 2017 11:45
[2017-11-26] MEDS: RESP: ALBUTEROL 2.5 MG/IPRATROPIUM 0.5 MG NEB (SCH) NEB ×2 (13:14→18:06)
[2017-11-26] MEDS: methylPREDNISolone SOD SUCC 40 MG/1 ML VIAL IV PUSH SCH ×2 (13:50→21:27)
[2017-11-26] MEDS ORDERED: LEVOFLOXACIN 750 MG PREMIX INJ 150 ML IV SCH (18:00)
[2017-11-26] MEDS: ACETAMINOPHEN/HYDROcodone 325 MG/5 MG TAB PO PRN (18:47)
[2017-11-26] MEDS: ENOXAPARIN SODIUM 40 MG/0.4 ML SYRINGE SQ SCH (18:47)
[2017-11-26] MEDS ORDERED: ZOLPIDEM TARTRATE 10 MG TAB PO PRN (21:00)
[2017-11-26] MEDS: BUDESONIDE-FORMOTEROL 160/4.5 MCG INHALER INH SCH (21:00)
[2017-11-27] VITALS: BP 112/71; PULSE 83; RESP 16; TEMP 98.1; O2SAT 98
[2017-11-27 04:00] VITALS: BP 120/70; PULSE 76; RESP 18; TEMP 98.8; O2SAT 94
[2017-11-27 04:08] VITALS: PULSE 73
[2017-11-27] MEDS: methylPREDNISolone SOD SUCC 40 MG/1 ML VIAL IV PUSH SCH (06:50)
[2017-11-27 08:05] VITALS: BP 119/70; PULSE 78; RESP 18; TEMP 98.2; O2SAT 97
[2017-11-27] MEDS: RESP: ALBUTEROL 2.5 MG/IPRATROPIUM 0.5 MG NEB (SCH) NEB (09:07)
[2017-11-27 09:08] VITALS: O2SAT 97
[2017-11-27] MEDS ORDERED: LEVA750T9 PO (09:24)
[2017-11-27] MEDS ORDERED: PRED20 PO (09:24)
[2017-11-27] MEDS ORDERED: LACTCHW3 CHEW (09:24)
[2017-11-27] MEDS ORDERED: IPRA17I INH (09:24)
[2017-11-27] MEDS ORDERED: VENTAER INH (09:24)
--- NOTE | 2017-11-27 09:24 | HHI.DS ---
Discharge Summary Admission Date Nov 25, 2017 at 18:22 Discharge Date: Nov 27, 2017 Admitting Diagnosis Acute exacerbation COPD (1) Acute bronchitis ICD Code: J20.9 - Acute bronchitis, unspecified (2) COPD (chronic obstructive pulmonary disease) ICD Code: J44.9 - COPD (chronic obstructive pulmonary disease) Status: Chronic (3) COPD with acute exacerbation ICD Code: J44.1 - Chronic obstructive pulmonary disease with (acute) exacerbation Status: Acute Procedures None Brief History - From Admission Mrs. Bah is a 72-year-old female. She has COPD at baseline. For 6 days she has been having a slowly graduating worsening of her respiratory status. In the past 2 days this has rapidly accelerated to a COPD exacerbation. She also reports a productive cough. Oxygenation has been worse than baseline. As an outpatient she is on hospice in regards to her COPD. She was given an antibiotic which I believe is Bactrim but this does not seem to have provided her benefit. CBC/BMP: 11/26/17 0545 11/26/17 0545 Significant Findings Laboratory Tests Test 11/25/17 17:05 11/26/17 05:45 Neutrophils (%) (Auto) 76.2 % (16.0-70.0) 87.6 % (16.0-70.0) Creatinine 1.11 MG/DL (0.50-1.00) 1.04 MG/DL (0.50-1.00) Carbon Dioxide Level 20.7 MEQ/L (21.0-32.0) 19.3 MEQ/L (21.0-32.0) Estimat Glomerular Filtration Rate 49 ML/MIN (>89) 52 ML/MIN (>89) Troponin I LESS THAN 0.02 NG/ML Lymphocytes # (Auto) 0.8 TH/MM3 (1.0-4.8) Random Glucose 143 MG/DL (74-106) Sodium Level 135 MEQ/L (136-145) Imaging Last Impressions Chest X-Ray 11/25/17 1703 Signed Impressions: CONCLUSION: Negative for acute process. PE at Discharge GENERAL: Awake and alert, in nad. CARDIOVASCULAR: Regular rate and rhythm without murmurs, gallops, or rubs. RESPIRATORY: No accessory muscle use. Scattered bilateral wheezing. GASTROINTESTINAL: Abdomen soft, non-tender, nondistended. MUSCULOSKELETAL: No cyanosis, or edema. SKIN: Warm and dry. NEURO: Awake and aler. No focal neurological deficits. Normal speech. Pt update on day of discharge Feels much better. Has oxygen at home. No events overnight. No wheezing. Wants to go home and to resume hospice at home Hospital Course 72 year-old female admitted secondary to COPD exacerbation with bronchitis COPD exacerbation Bronchitis Outpatient Treatment Failure Chronic respiratory failure. She is using 2 L oxygen at home Patient failed Bactrim as an outpatient Levaquin initiated as a treatment here. Continue oxygen supplements as needed Schedule duo nebs and as need Azithromycin Systemic steroids taper as tolerated Add IS Follow for improvement in respiratory status Follow for improvement in exertional tolerance next Continue oxygen supplement oxygen saturation more than 92% Diabetes mellitus type 2 Follow blood sugars Insulin sliding scale Diabetic diet Hypertension Continue baseline treatment Follow blood pressures Adjust treatments as needed Chronic pain. Continue [place] DVT prophylaxis SCDs, Lovenox Patient improved significantly patient follows with pulmonology as outpatient. Also patient is hospice at home. Discharged home with hospice in fairly well condition to follow-up as outpatient with PCP and consultants as needed. Pt Condition on Discharge: Stable Discharge Disposition: Hospice/ Home Discharge Time: > 30 minutes Discharge Instructions DIET: Follow Instructions for: Heart Healthy Diet, Diabetic Diet Activities you can perform: Regular-No Restrictions Follow up Referrals: PCP Follow-up - 2-3 Days Pulmonology - 1 Week New Orders: PULMONARY FUNCTION TEST - 1 Week New Medications: Albuterol 18 GM Inh (Ventolin Hfa 18 GM Inh) 90 Mcg/Act Aer 2 PUFF INH Q4H PRN for SHORTNESS OF BREATH, #1 INHALER 0 Refills Ipratropium HFA 12.9 GM Inh (Atrovent HFA 12.9 GM Inh) 17 Mcg/Actuation Aer 2 PUFF INH Q6HR PRN for SHORTNESS OF BREATH, #1 INHALER 0 Refills Lactobacillus Acidophilus (Lactinex) 1 Chew 1 TAB CHEW DAILY for Nutritional Supplement, #30 TAB 0 Refills Levofloxacin (Levaquin) 750 Mg Tablet 750 MG PO DAILY for Infection, #7 TAB 0 Refills Prednisone (Prednisone) 20 Mg Tab 20 MG PO DIRECTED for Inflammation, #11 TAB 0 Refills 40 MG twice a day x 3 days, then 20 MG daily x 3 days, then 10 MG daily x 3 days Continued Medications: Allopurinol (Allopurinol) 100 Mg Tab 100 MG PO BID for Gout, #30 TAB 0 Refills Budesonide-Formoterol Inh (Symbicort Inh) 80-4.5 Mcg/Act Aero Unknown Dose INH Q12HR for Asthma Management, #1 INHALER 0 Refills Diltiazem (Cardizem) 30 Mg Tab 30 MG PO QID for afib, #120 TAB Ipratropium-Albuterol Neb (Duoneb) 0.5-2.5 Mg/3 Ml Neb 1 NEBULE INH Q4HR NEB PRN for SHORTNESS OF BREATH, #180 NEBULE 0 Refills Metformin (Metformin) 500 Mg Tab 500 MG PO BIDPC for Blood Sugar Management, #60 TAB 0 Refills With meals Zolpidem (Zolpidem) 10 Mg Tab 10 MG PO HS PRN for INSOMNIA, TAB 0 Refills Sera Pretty MD Nov 27, 2017 09:24
[2017-11-27] MEDS: DILTIAZEM HCL 30 MG TAB PO SCH (09:29)
[2017-11-27] MEDS: ALLOPURINOL 100 MG TAB PO SCH (09:29)
[2017-11-27] MEDS: LACTOBACILLUS ACIDOPHILUS TAB PO SCH (09:29)
[2017-11-27] MEDS: BUDESONIDE-FORMOTEROL 160/4.5 MCG INHALER INH SCH (09:30)
[2017-11-27] MEDS: INSULIN ASPART SUPPLEMENTAL SCALE SQ SCH (09:30)
[2017-11-27] MEDS: ACETAMINOPHEN/HYDROcodone 325 MG/5 MG TAB PO PRN (09:30)
[2017-11-27] MEDS: SODIUM CHLORIDE 0.9% FLUSH 10 ML FLUSH IV FLUSH SCH (09:31)
== END 2017-11-27 11:32 | disposition hospice, home (50) | DRG 191 ==
LOC: NEPE 14:19 → NEDA 18:22 → INTOOBSV 18:22 → OBSVTOIN 18:22 → N04B 19:57
PROVIDERS: ADMIT Hospitalist; ATTEND Hospitalist
DX: J44.0 Chronic obstructive pulmonary disease with (acute) lower respiratory infection (principal); J96.11 Chronic respiratory failure with hypoxia; Z99.81 Dependence on supplemental oxygen; J20.9 Acute bronchitis, unspecified; J44.1 Chronic obstructive pulmonary disease with (acute) exacerbation; E11.9 Type 2 diabetes mellitus without complications; I10 Essential (primary) hypertension; G89.29 Other chronic pain; F41.9 Anxiety disorder, unspecified; M10.9 Gout, unspecified; Z88.0 Allergy status to penicillin; Z79.01 Long term (current) use of anticoagulants; Z87.891 Personal history of nicotine dependence
CPT/HCPCS: 71045; 80053; 82948; 83880; 84484; 85025; 85610; 85730; 87040; 87804; 93005; 94640; 94664; J1650; J1815; J1956; J2920; J2930